=== PATIENT | male | born 1995 | race Caucasian/White ===

== ENCOUNTER 2023-07-22 06:50 | Outpatient (OUT) | payer MEDICAID, SELFPAY ==
[2023-07-22 07:25] LABS: Basophils Absolute Auto 0.1 10^3/uL (0.0-0.1); Basophils Percent Auto 1.3 % (0.2-2.0); Eosinophils Absolute Auto 0.2 10^3/uL (0.0-0.7); Hematocrit 48.6 % (42.0-54.0); Immature Granulocytes Abs Auto 0.01 10^3/uL (0.00-0.03); Immature Granulocytes Pct Auto 0.2 % (0.0-0.5); Lymphocytes Absolute Auto 1.7 10^3/uL (1.2-3.8); Lymphocytes Percent Auto 31.1 % (20.5-60.0); Mean Corpuscular HGB Conc 30.9 g/dL (29.9-35.2); Mean Corpuscular Hemoglobin 25.3 pg (25.9-34.0); Mean Corpuscular Volume 82.1 fL (80.0-94.0); Mean Platelet Volume 10.4 fL (9.5-13.5); Monocytes Absolute Auto 0.6 10^3/uL (0.3-0.8); Monocytes Percent Auto 10.2 % (1.7-12.0); Neutrophils Absolute Auto 2.9 10^3/uL (1.4-6.5); Neutrophils Percent Auto 54.2 % (43.0-75.0); Platelet Count 172 10^3/uL (150-450); Red Blood Count 5.92 10^6/uL (4.70-6.10); Red Cell Distribution Width 13.8 % (11.0-15.0); White Blood Count 5.4 10^3/uL (4.0-11.0)
[2023-07-22 07:52] LABS: Alanine Aminotransferase 32 U/L (16-63); Albumin Level 4.2 g/dL (3.4-5.0); Alkaline Phosphatase 143 U/L (46-116); Anion Gap 1.6; Aspartate Amino Transferase 21 U/L (15-37); BUN Creatinine Ratio 15.1; Bilirubin Total 0.6 mg/dL (0.2-1.0); Calcium 9.3 mg/dL (8.5-10.1); Carbon Dioxide 34.7 mmol/L (21.0-32.0); Chloride 100 mmol/L (98-107); Estimated GFR (African America >60 (>=60); Estimated GFR (Non-African Ame >60 (>=60); Free T3 2.53 pg/mL (2.18-3.98); Globulin 4.2 g/dL; Glucose 87 mg/dL (74-106); Potassium 4.3 mmol/L (3.5-5.1); Sodium 132 mmol/L (136-145); Thyroid Stimulating Hormone 2.915 uIU/mL (0.358-3.740); Total Protein 8.4 g/dL (6.4-8.2)
[2023-07-22 07:54] LABS: Free T4 0.93 ng/dL (0.76-1.46)
== END 2023-07-22 06:51 | disposition home or self-care (01) ==
LOC: LAB 06:50
PROVIDERS: PCP Family Medicine; Visit Provider Family Medicine
DX: Z79.899 Other long term (current) drug therapy (principal)
CPT/HCPCS: 36415; 80053; 84439; 84443; 84481; 85025

== ENCOUNTER 2025-01-11 07:10 | Outpatient (OUT) | payer MEDICAID, SELFPAY ==
--- OUTSIDE RECORDS SUMMARY | 2016-03-25 07:50 | XMS_ITS | Continuity of Care Document ---
Author Organization [facility] Address [address] [place] [address] Phone Care Team Providers Care Chrome Tanner Name Role Phone Zaira María Unavailable Unavailable Allergies, Adverse Reactions, Alerts Substance Reaction Status Criticality No Known Allergies Active No Inform ation Medications Medication Instructions Dosage Effective Dates (start - stop) Status Comments No Drug Therapy Prescribed Procedures Procedure Date Office/outpatient visit,est, mod 2015 Pneuma/vac walk boot pre ots Office/outpatient visit,new, [facility] 2014 Advance Directives Directive Yes / No Effective Date File Name No Information Encounters Encounter Description Practice Location Reason(s) For Visit Diagnoses Date Provider Providers Copied on Encounter Office/outpat ient visit,est, mod [facility], [facility] [address] [place], [place], [facility], tel:[phone] [facility] No Information [address]. [address] [place], [place], [id number] , [place]. tel:[phone] [facility], [facility] [place], [address], [place] tel:[phone] [facility] No Information 6 Zaira María. [address] [place], [place], [id number] , [place]. tel:[phone] Office/outpat ient visit,[place], [facility], [address] [facility] [place], [address], [place] [phone] Ronni Bedoya Wrist Pain (chief complaint) No Information [phone] [place], [place], [id number] , [place]. tel:[phone] Family History Family Member Type Diagnosis Age At Onset No Information Payers Payer name Insurance type Covered libertarian ID Authoriza tion(s) No Information Social History Type Description Quantity Date Captured Comments Sex Male Smoking Status No Information Chief Complaint And Reason For Visit No Information Reason For Referral Reason For Referral No Information History Of Present Illness Encounter Date Complaint History Of Prese nt Illness Wrist Pain Functional Status Date Functional Assessmen t No Information Medications Administered Medication Instructions Dosage Effective Dates (start - stop) Status Comments No Drug Therapy Prescribed Instructions Date Instruction Additional Infor mation No Information Assessments Type Assessment Date No Information Patient Care Teams Name Effective Dates (start - stop) Status Members No Information
--- OUTSIDE RECORDS SUMMARY | 2025-01-11 07:13 | XMS_ITS | Encounter Summary ---
Author Organization [facility] Address [address] [place] [address] Care Team Providers Care Ferry Operator Name Role Phone Rojas Hurtado DO Primary Care Provider [phone] Encounter Details Date Type Department Care Team (Latest Contact Info) Description 03/18/2006 Office Visit Donaldo Johnson MD Social History Tobacco Use Types Packs/Day Years Used Date Smoking Tobacco: Never Assessed Sex and Gender Information Value Date Recorded Sex Assigned at Not on file Legal Sex Male 3:31 PM EST Gender Identity Not on file Sexual Orientation Not on file documented as of this encounter Plan of Treatment Not on file documented as of this encounter Visit Diagnoses Not on filedocumented in this encounter Care Teams Ferry Operator Relationship Specialty Start Date End Date Rojas Hurtado DO [address] [place] [address] PCP - General Family Medicine 01/17/14 documented as of this encounter
--- OUTSIDE RECORDS SUMMARY | 2025-01-11 07:13 | XMS_ITS | Encounter Summary ---
Author Organization [facility] Address [id number] [address] [place] [address] Care Team Providers Care Learning Program Manager Name Role Phone No Pcp, No Pcp Primary Care Provider Unavailabl e Encounter Details Date Type Department Care Team (Late st Contact Info) Description 07/04/2022 Orders Only [facility] [address] [place] [address] External, Scanning Provider Social History Tobacco Use Types Packs/Day Years Used Date Smoking Tobacco: Never Smokeless Tobacco: Never Alcohol Use Standard Drinks/Week Comments Never 0 (1 standard drink = 0.6 oz pur e alcohol) Childcare Answer Date Recorded Childcare Unknown 11/03/2018 Employment Answer Date Recorded Employment Unknown 11/03/2018 Sex and Gender Information Value Date Recorded Sex Assigned at Not on file Legal Sex Male 7:09 PM EDT Gender Identity Not on file Sexual Orientation Not on file COVID-19 Exposure Response Date Recorded In the last month, have you been in contact with someone who was confirmed or suspected to have Coronavirus / COVID-19? No / Unsure 07/03/2022 11:49 AM EST documented as of this encounter Plan of Treatment Upcoming Encounters Date Type Department Care Team (Late st Contact Info) Description 02/23/2025 9:45 AM EDT Office Visit [facility] [address] [place] [address] Leandra Freeman, PADmC [address] [facility] [place] [address] documented as of this encounter Visit Diagnoses Not on filedocumented in this encounter Care Teams Learning Program Manager Relationship Specialty Start Date End Date No Pcp, [place] [address] PCP - General Family Medicine 08/22/22 documented as of this encounter
--- OUTSIDE RECORDS SUMMARY | 2025-01-11 07:13 | XMS_ITS | Encounter Summary ---
Author Organization [facility] Address [address] [place] [address] Care Team Providers Care Cashier Host/Hostess Name Role Phone Rojas Hurtado DO Primary Care Provider Encounter Details Date Type Department Care Team (Late st Contact Info) Description 07/14/2007 Office Visit [facility] [address], [address] [place] [address] Donaldo Johnson MD Social History Tobacco Use [...] on filedocumented in this encounter Care Teams Cashier Host/Hostess Relationship Specialty Start Date End Date Rojas Hurtado DO [address] [place] [address] PCP - General Family Medicine 01/17/14 documented as of this encounter
--- OUTSIDE RECORDS SUMMARY | 2025-01-11 07:13 | XMS_ITS | Clinical Summary ---
Author Organization [facility] Address [address] [place] [address] Care Team Providers Care Clinical Systems Educator Name Role Phone Unavailable Primary Care Provider Unavailabl e Social History Tobacco Use Types Packs/Day Years Used Date Smoking Tobacco: Never Assessed Sex and Gender Information Value Date Recorded Sex Assigned at Not on file Legal Sex Male 9:44 PM EDT Gender Identity Not on file Sexual Orientation Not on file Plan of Treatment Health Maintenance Due Date Last Done Comments Influenza Vaccine (#1) 2025 , 03/01/2020, 03/19/2019, Additional history exists Insurance [place]ICAID [place]
--- OUTSIDE RECORDS SUMMARY | 2025-01-11 07:13 | XMS_ITS | Clinical Summary ---
Author Organization [facility] Address [id number] [address] [place] [address] Care Team Providers Care Pump And Blower Operator Name Role Phone No Pcp, No Pcp Primary Care Provider Unavailabl e Allergies Active Allergy Reactions Criticality Noted Date Comments Codeine 04/02/2013 Medications fluticasone propionate (FLONASE) 50 mcg/actuation nasal spray Administer 1 spray into each nostril in the morning and 1 spray before bedtime. 2 Active levothyroxine (SYNTHROID, LEVOTHROID) 50 MCG tablet Take 1 tablet (50 mcg total) by mouth in the morning. 2 Active loratadine (CLARITIN) 10 mg tablet Take 1 tablet (10 mg total) by mouth nightly. 2 Active montelukast (SINGULAIR) 10 mg tablet Take 1 tablet (10 mg total) by mouth in the morning. 2 Active potassium citrate-citric acid (POLYCITRA) 1,100-334 mg/5 mL solution 2 Active budesonide (PULMICORT) 0.5 mg/2 mL nebulizer solution Inhale 2 mL (0.5 mg total) by nebulization in the morning. Active guaiFENesin (ROBITUSSIN) 100 mg/5 mL syrup Take 10 mL (200 mg total) by mouth as needed in the morning and 10 mL (200 mg total) as needed at noon and 10 mL (200 mg total) as needed in the evening for cough. Active clotrimazole-be tamethasone (LOTRISONE) creamIndication s:Otomycosis Applied to external ear canal once at bedtime every other night. 30 g 3 4 Active clotrimazole (LOTRIMIN) 1 % external solutionIndicat ions:Otomycosis ,Otorrhea of both ears Administer 2 drops in both ears twice daily for 7 days, in combination with Ciprodex 30 mL Active Active Problems Problem Noted Date Diagnosed Date Otorrhea 11/03/2024 Conductive hearing loss, bilateral 08/21/2022 Dysfunction of both eustachian tubes 08/21/2022 Cerumen debris on tympanic membrane of both ears 03/07/2022 Otomycosis 03/07/2022 Resolved Problems Problem Noted Date Diagnosed Date Resolved Date Acute mucoid otitis media of right ear 04/07/2024 08/04/2024 Acute otitis externa of both ears 04/07/2024 08/04/2024 Right otitis media 12/18/2023 Non-recurrent acute serous o titis media of right ear 07/16/2022 01/14/2024 Overview (07/16/2022): Added automatically from request for surgery [id number] Bilateral serous otitis media 04/11/2022 01/14/2024 Encounters Date Type Department Care Team Description 12/01/2024 2:15 PM EDT Office Visit [facility] [facility] [place] [place] [phone] Leandra Freeman PA-C Otomycosis (Primary Dx); Otorrhea of both ears; Dysfunction of both eustachian tubes 12/01/2024 Travel 11/04/2024 Telephone [facility] [address] [place], [place] [address] [place] [address] Leandra Freeman PA-C 11/03/2024 2:15 PM EDT Office Visit [facility] [place] [address] Leandra Freeman PA-C Otomycosis (Primary Dx); Dysfunction of both eustachian tubes; Otorrhea of both ears 11/03/2024 Travel 10/14/2024 Telephone [facility] [address] [facility] [place] [address] Leandra Freeman PA-C from Last 3 Months Family History Medical History Relation Name Comments No Known Problems Father No Known Problems Mother Relation Name Status Comments Father Alive Mother Alive Social History Tobacco Use Types Packs/Day Years Used Date Smoking Tobacco: Never Smokeless Tobacco: Never Tobacco Cessation:Counseling Given: Not Answered Alcohol Use Standard Drinks/Week Comments Never 0 (1 standard drink = 0.6 oz pur e alcohol) Childcare Answer Date Recorded Childcare Unknown 11/03/2018 Employment Answer Date Recorded Employment Unknown 11/03/2018 Hunger Screening Answer Date Recorded Within the past 12 months we worried whether our food would run out before we got money to buy more. Never True 09/26/2022 Within the past 12 months th e food we bought just didn't last and we didn't have money to get more. Never True 09/26/2022 Sex and Gender Information Value Date Recorded Sex Assigned at Not on file Legal Sex Male 7:09 PM EDT Gender Identity Not on file Sexual Orientation Not on file Last Filed Vital Signs Vital Sign Reading Time Taken Comments Blood Pressure 126/79 08/29/2022 1:40 PM EDT Pulse 90 08/29/2022 1:40 PM EDT Temperature 37.1 C (98.8 F) 12/01/2024 1:56 PM EDT Respiratory Rate 15 08/29/2022 1:40 PM EDT Oxygen Saturation 98% 08/29/2022 1:40 PM EDT Inhaled Oxygen Concentration - - Weight 73.9 kg (163 lb) 12/01/2024 1:56 PM EDT Height 162.6 cm (5' 4.02 ) 12/01/2024 1:56 PM ED T Body Mass Index 27.96 12/01/2024 1:56 PM EDT Plan of Treatment Upcoming Encounters Date Type Department Care Team ([facility] Contact Info) Description 02/23/2025 9:45 AM EDT Office Visit [facility] [address] [place] [address] Leandra Freeman PA-C [address] [facility] [address] [place] [address] Health Maintenance Due Date Last Done Comments Depression Screening 2008 Adult BMI Follow Up Plan 2014 DTaP,Tdap and Td Vaccines (7 - Td or Tdap) 07/16/2022 07/16/2012, 01/13/2003, 07/16/2002, Additional history exists Influenza Vaccine 01/24/2025 03/11/2024, , 03/13/2022, Additional history exists Adult BMI Screening 12/01/2025 12/01/2024 Tobacco Screening 12/01/2025 12/01/2024 COVID-19 Vaccine Completed 03/11/2024, , 03/13/2022, Additional history exists Medical Devices Implanted Type Area Gardener Device Identifier Shelf Expiration Date Model / Serial / Lot Plain Straight Shank Ventilation Tube, Fluoroplastic, White Implanted:Qty: 2 on 08/29/2022 by Jan Baer MD PhD at [facility] Other Implant Bilatera l: Ear [employer] 03/20/2025 [id number] / NA / [id number] [place] Care Teams Pump And Blower Operator Relationship Specialty Start Date End Date No Pcp, [place] [address] PCP - General Family Medicine 08/22/22
--- OUTSIDE RECORDS SUMMARY | 2025-01-11 07:13 | XMS_ITS | Encounter Summary ---
Author Organization [facility] Address [address] [place] [address] Care Team Providers Care Job Coaching Name Role Phone Rojas Hurtado DO Primary Care Provider Encounter Details Date Type Department Care Team (Late st Contact Info) Description 11/25/2005 Office Visit Endocrinology Clinic [facility] [address] [address] José Miguel Campos MD Endocrinology & Metabolism [address] [place] [address] Social History Tobacco Use Types Packs/Day Years [...] on filedocumented in this encounter Care Teams Job Coaching Relationship Specialty Start Date End Date Rojas Hurtado DO [address] [place] [address] PCP - General Family Medicine 01/17/14 documented as of this encounter
--- OUTSIDE RECORDS SUMMARY | 2025-01-11 07:13 | XMS_ITS | Encounter Summary ---
Author Organization [facility] Address [address] [place] [address] Care Team Providers Care Facility Attendant Name Role Phone Rojas Hurtado Primary Care Provider Encounter Details Date Type Department Care Team (Late st Contact Info) Description 12/16/2006 Office Visit [facility]alsy [facility] [address] [place] [address] Jessee Cosby MD [address] [place] [address] Social History Tobacco Use Types Packs/Day Years Used Date Smoking Tobacco: Never Assessed Sex and Gender Information Value Date Recorded Sex Assigned at Not on file Legal Sex Male 3:31 PM EST Gender Identity Not on file Sexual Orientation Not on file documented as of this encounter Progress Notes * Jessee Cosby MD - 12/17/2006 5:59 AM EDT [facility] MEDICAL REPORT NAME: [facility] UNIT NO: [id number] [facility] 12/16/2006 CHIEF COMPLAINT: The patient is being evaluated for nonpainful flat feet with valgus deformity. HISTORY OF PRESENT ILLNESS: The patient is a 11-year-old male with multiple medical problems including epilepsy, autism, hypoplastic corpus callosum, craniostenosis, and hyperthyroidism. The patient is referred here by the neurology clinic for evaluation of bilateral flat feet with valgus deformity. Mom says the patient does not complain of pain and ambulates without assistance. The patient does wear inserts to correct his valgus deformity, which were given to him initially by a previous physician. However, the patient does not wear these at all times and only wears them in his tennis shoes. Mom states that the patient does not complain of pain on ambulation and has demonstrated stable coordination. PHYSICAL EXAMINATION: The patient is a 11-year-old male with multiple craniofacial dysmorphic features that is alert and responds appropriately to questioning. The patient follows directions without difficulty. He was able to climb down from the examining table to the floor to demonstrate his walking ability. His gait, he does utilize a broad base gait with a flat foot valgus deformity of bilateral feet. The patient does have soft, supple ankles and can get past neutral and dorsiflexion. The patient does have full range of motion of the hips, knees, and ankles. X-RAYS: No x-rays were obtained at this time. IMPRESSION: Bilateral flat feet valgus deformity, nonpainful. PLAN: After discussion with mother, it was determined that the patient would probably benefit from foot inserts to correct the valgus deformity. Both literature and sizing for shoe insert was performed today and mother will follow up with the company and order a set of inserts for the patient's tennis shoes. At this time, we will follow up with the patient in 1 year to recheck his status; however, if the mother feels as though she needs to follow up at a sooner date, she can call and make an appointment. Staff Physician: Robby Almeida MD The patient was seen and evaluated with the resident. I agree with the above findings, diagnosis, plan of treatment and have reviewed the medication reconcilliation form.. Attending Physician: Jessee Cosby MD d/12/16/2006 15:06:46/[id number] t/12/17/2006 00:29:08/MedQ documented in this encounter Plan of Treatment Not on file documented as of this encounter Visit Diagnoses Not on filedocumented in this encounter Care Teams Facility Attendant Relationship Specialty Start Date End Date Rojas Hurtado DO [address] [place] [address] PCP - General Family Medicine 01/17/14 documented as of this encounter
--- OUTSIDE RECORDS SUMMARY | 2025-01-11 07:13 | XMS_ITS | Encounter Summary ---
Author Organization [facility] Address [address] [place] [address] Care Team Providers Care Military Science Instructor Name Role Phone Rojas Hurtado DO Primary Care Provider Encounter Details Date Type Department Care Team (Late st Contact Info) Description 03/28/2006 Office Visit Neurology Clinic [address] [place] [address] Bar Pelaez MD [address] [place] [address] Social History Tobacco Use Types Packs/Day Years [...] on filedocumented in this encounter Care Teams Military Science Instructor Relationship Specialty Start Date End Date Rojas Hurtado DO [address] [place] [address] PCP - General Family Medicine 01/17/14 documented as of this encounter
--- OUTSIDE RECORDS SUMMARY | 2025-01-11 07:13 | XMS_ITS | Clinical Summary ---
Author Organization [facility] Address [address] [place] [address] Care Team Providers Care Prom Burn Off Operator Name Role Phone Rojas Hurtado DO Primary Care Provider Allergies Active Allergy Reactions Criticality Noted Date Comments Codeine Rash,Respiratory Distress 07/31/2005 Environmental Sneezing 03/08/2014 Medications loraTADINE (CLARITIN) 10 mg oral tablet 1 tablet by mouth every day as needed 8 Active DIASTAT RECTAL Insert 20mg rectally as needed as directed 8 Active potassium citrate-citric acid (CYTRA-K) 1,100-334 mg/5 mL oral liquid take 10 mL by mouth 3 times daily. 1 month supply 11 8 Active levothyroxine (SYNTHROID) 50 mcg oral tablet 1 tablet once daily. 1 tablet by mouth every day 30 tablets 11 months 8 Active montelukast (SINGULAIR) 10 mg oral tablet take 10 mg by mouth once daily. Active fluticasone (FLONASE) nasal spray place 1 spray(s) in each nostril twice daily. Active Active Problems Problem Noted Date Diagnosed Date Nephrocalcinosis 08/06/2006 Social History Tobacco Use Types Packs/Day Years Used Date Smoking Tobacco: Never Smokeless Tobacco: Never Sex and Gender Information Value Date Recorded Sex Assigned at Not on file Legal Sex Male 3:31 PM EST Gender Identity Not on file Sexual Orientation Not on file Last Filed Vital Signs Vital Sign Reading Time Taken Comments Blood Pressure 109/65 06/29/2007 1:30 PM EST Pulse 111 06/29/2007 1:30 PM EST Temperature - - Respiratory Rate - - Oxygen Saturation - - Inhaled Oxygen Concentration - - Weight 56.4 kg (124 lb 5.4 oz) 03/08/2014 12:00 AM EDT Height 159.8 cm (5' 2.91 ) 03/08/2014 12:00 AM E DT Body Mass Index 22.09 03/08/2014 12:00 AM EDT Plan of Treatment Health Maintenance Due Date Last Done Comments MMR Vaccine (1 of 1 - Standa rd series) 1997 DTaP/Tdap/Td Vaccine (1 - Tdap) 12/03/2003 Varicella Vaccine (1 of 2 - 13+ 2-dose series) 2009 Hepatitis B Vaccine (1 of 3 - 19+ 3-dose series) 12/03/2015 HPV Vaccine (1 - 3-dose SCDM series) 12/03/2023 COVID-19 Vaccine (2023-2 5 season) 2024 Influenza Vaccine (#1) 2025 HIB Vaccine Aged Out No longer eligi ble based on patient's age to complete this topic Hepatitis A Vaccine Aged Out No longe r eligible based on patient's age to complete this topic IPV Vaccine Aged Out No longer eligi ble based on patient's age to complete this topic Meningococcal ACWY Vaccine Aged Out N o longer eligible based on patient's age to complete this topic Meningococcal B Vaccine Aged Out No l onger eligible based on patient's age to complete this topic Pneumococcal Vaccine Aged Out No long er eligible based on patient's age to complete this topic RSV, Nirsevimab Immunization Aged Out No longer eligible based on patient's age to complete this topic Rotavirus Vaccine Aged Out No longer eligible based on patient's age to complete this topic Insurance [place] Care Teams Prom Burn Off Operator Relationship Specialty Start Date End Date Rojas Hurtado DO [address] [place] [id number] PCP - General Family Medicine 01/17/14
--- OUTSIDE RECORDS SUMMARY | 2025-01-11 07:13 | XMS_ITS | Encounter Summary ---
Author Organization [facility] Address [address] [place] [address] Care Team Providers Care Cover Inspector Name Role Phone Rojas Hurtado DO Primary Care Provider [phone] Reason for Referral * Consultation (Routine) - Closed Specialty Diagnoses / Procedures Referred By Freda t Referred To Contact Neurosurgery Diagnoses Craniostenosis Rojas Hurtado DO [address] [place] [address] Phone: tel: fax: [facility] [address], [address] [place] [address] Phone: tel: Referral ID Status Reason Start Date Expiration Date V isits Requested Visits Authorized [id number] Closed Specialty Services Required 01/12/2014 01/12/2015 7 7 Encounter Details Date Type Department Care Team (Late st Contact Info) Description 01/12/2014 Orders Only Central Scheduling Rojas Hurtado DO [address] [place] [address] Social History Tobacco Use Types Packs/Day Years Used Date Smoking Tobacco: Never Assessed Sex and Gender Information Value Date Recorded Sex Assigned at Not on file Legal Sex Male 3:31 PM EST Gender Identity Not on file Sexual Orientation Not on file documented as of this encounter Plan of Treatment Scheduled Referrals Name Type Priority Associated Diagnoses Order Schedule Referral to Neurosurgery Outpatient Referral Routine Craniostenosis Ordered: 01/12/2014 documented as of this encounter Visit Diagnoses Diagnosis 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
--- OUTSIDE RECORDS SUMMARY | 2025-01-11 07:13 | XMS_ITS | Encounter Summary ---
Author Organization [facility] eZWay [facility] tem Address [employer] [facility] [employer]-[id number] [address] [place] [address] Care Team Providers Care Sheet Finisher Name Role Phone No Pcp, No Pcp Primary Care Provider Unavailabl e Encounter Details Date Type Department Care Team ([facility] st Contact Info) Description 04/05/2024 Telephone [facility] - ENT [address] [facility] [place] [id number] Leandra Freeman, PA-C [address] [facility] [address] [place] [address] Social History Tobacco Use Types Packs/Day Years [...] on file documented as of this encounter Miscellaneous Notes * Telephone Encounter - Yaritza Rico - 04/05/2024 3:00 PM EST Michelle from [facility] called and said patient has milky white discharge from his ears. It is mostly his right ear and that ear is causing him pain. Patient is scheduled for 04/13 at 10:45am. Should patient be seen sooner. If so they can bring him in on Friday or afternoon this week. Please advise. Michelle at [facility] [phone] * Telephone Encounter - SHARLA Hutchinson - 04/05/2024 3:00 PM EST Should patient be seen sooner? Looks like you have a held slot at 2:15pm on Friday, Friday and . * Telephone Encounter - LISETTE Reddy - 04/05/2024 3:00 PM EST Yes, he should be scheduled this week in a held slot if Leandra has them available! * Telephone Encounter - SHARLA Hutchinson - 04/05/2024 3:00 PM EST Left a message for the patients caregiver asking to call the office back so we can schedule the patient for an appointment with Leandra this week in one of her held slots. * Telephone Encounter - Judy Claire - 04/05/2024 3:00 PM EST Patient is scheduled with Leandra 04/07 at 2:15pm. documented in this encounter Plan of Treatment Upcoming Encounters Date Type Department Care Team (Late st Contact Info) Description 02/23/2025 9:45 AM EDT Office Visit [facility] [address] [place] [address] Leandra Freeman, PADmC [address] [facility] [address] [place] [address] documented as of this encounter Visit Diagnoses Not on filedocumented in this encounter Care Teams Sheet Finisher Relationship Specialty Start Date End Date No Pcp, [place] [address] PCP - General Family Medicine 08/22/22 documented as of this encounter
--- OUTSIDE RECORDS SUMMARY | 2025-01-11 07:13 | XMS_ITS | Encounter Summary ---
Author Organization [facility] Address [address] [place] [address] Care Team Providers Care Signs And Displays Salesperson Name Role Phone Rojas Hurtado DO Primary Care Provider [phone] Encounter Details Date Type Department Care Team (Late st Contact Info) Description 01/12/2008 Office Visit [facility] [address], [address] [place] [address] Donaldo Johnson MD Social History Tobacco Use [...] on filedocumented in this encounter Care Teams Signs And Displays Salesperson Relationship Specialty Start Date End Date Rojas Hurtado DO [address] [place] [id number] PCP - General Family Medicine 01/17/14 documented as of this encounter
--- OUTSIDE RECORDS SUMMARY | 2025-01-11 07:13 | XMS_ITS | Encounter Summary ---
Author Organization [facility] Address [address] [place] [address] Care Team Providers Care Roll Panner Name Role Phone Rojas Hurtado DO Primary Care Provider Encounter Details Date Type Department Care Team (Late st Contact Info) Description 04/28/2006 Office Visit [facility] [place] [address] [place] [address] Benjamin Chao DDS [address] [place] [address] [id number] [place] [phone] Social History Tobacco Use Types Packs/Day Years Used Date Smoking Tobacco: Never Assessed Sex and Gender Information Value Date Recorded Sex Assigned at Not on file Legal Sex Male 3:31 PM EST Gender Identity Not on file Sexual Orientation Not on file documented as of this encounter Miscellaneous Notes * Operative Report - Benjamin Chao DDS - 05/03/2006 3:54 AM EST [facility] OPERATIVE REPORT PATIENT NAME: GLEN SUGGS MR#: [id number] DATE OF SURGERY: 04/29/2006 SERVICE: OPT SURGEON: MICHAEL CHAO DDS ASSISTANTS: PREOPERATIVE DIAGNOSIS: Dental caries. POSTOPERATIVE DIAGNOSIS: Dental caries. PROCEDURE: Operative dentistry. INDICATIONS FOR PROCEDURE: The patient is a 10-year-old male with a medical history of craniosynostosis. Previous attempts of dental treatment have been unsuccessful due to cooperation and scope of treatment. [facility] [address], on April 2006, medical history was reviewed and informed consent obtained from the parents. DESCRIPTION OF PROCEDURE: Following anesthetic induction a moist pharyngeal throat pack was placed, a rubber cup prophy was accomplished, and a treatment plan was generated. Four periapical x-rays were taken, 1.8 ml 2% lidocaine with 1:100,000 epinephrine was administered as regional anesthesia. The following teeth were treated under rubber dam isolation: Tooth H - facial glass ionomer. Tooth N - extraction. Tooth L - extraction. Tooth R - extraction. Tooth S - extraction. Also there were four quadrants of subgingival scaling and re-planing that were accomplished. Following treatment 1.23% APF was applied for two minutes, throat pack was removed, and the mouth was debrided. The patient was extubated without complications in the [facility] and transferred to the Dental PACU where upon obtainment of discharge criteria he will be released to the care of his parents with a follow up in six months. Michael Chao DDS d/05/02/2006 09:15:36/ST/[id number] t/05/03/2006 03:39:55/MedQ documented in this encounter Plan of Treatment Not on file documented as of this encounter Visit Diagnoses Not on filedocumented in this encounter Care Teams Roll Panner Relationship Specialty Start Date End Date Rojas Hurtado DO [address] [place] [address] PCP - General Family Medicine 01/17/14 documented as of this encounter
--- OUTSIDE RECORDS SUMMARY | 2025-01-11 07:13 | XMS_ITS | Encounter Summary ---
Author Organization [facility] Address [address] [place] [address] Care Team Providers Care Field Marketing Associate Name Role Phone Rojas Hurtado DO Primary Care Provider Encounter Details Date Type Department Care Team (Late st Contact Info) Description 03/28/2006 Office Visit LAB OUTPATIENT LAB MAIN [place] [phone] José Miguel Campos MD Endocrinology & Metabolism [address] [place] [address] Social History Tobacco Use Types Packs/Day Years Used Date Smoking Tobacco: Never Assessed Sex and Gender Information Value Date Recorded Sex Assigned at Not on file Legal Sex Male 3:31 PM EST Gender Identity Not on file Sexual Orientation Not on file documented as of this encounter Plan of Treatment Not on file documented as of this encounter Procedures Procedure Name Priority Date/Time Associated Diagnosis Comments TSH Routine 03/28/2006 5:25 PM EST FREE T4 Routine 03/28/2006 5:25 PM EST documented in this encounter Results * TSH (03/28/2006 5:25 PM EST) TSH 3.300 0.5 - 4.7 uIU/mL [facility] Comment: This is a 3rd Generation TSH assay which is now standard procedure at [facility]. 03/28/2006 5:25 PM EST 03/28/2006 5:45 PM EST José Miguel Campos MD METABOLIC/ENDOCRINE ORDERAB LES Final Result [facility] [address] [place] [address], [place] [phone] * FREE T4 (03/28/2006 5:25 PM EST) [facility] FREE T4 1.4 0.7 - 2.1 ng/dL [facility] 03/28/2006 5:25 PM EST 03/28/2006 5:45 PM EST José Miguel Campos MD METABOLIC/ENDOCRINE ORDERAB LES Final Result Performing Organization Address City/[facility] Co de Phone Number [facility] [address] [place] [address], [place] [phone] documented in this encounter Visit Diagnoses Not on filedocumented in this encounter Care Teams Field Marketing Associate Relationship Specialty Start Date End Date Rojas Hurtado DO [address] [place] [address] PCP - General Family Medicine 01/17/14 documented as of this encounter
--- OUTSIDE RECORDS SUMMARY | 2025-01-11 07:13 | XMS_ITS | Encounter Summary ---
Author Organization [facility] Address [address] [place] [address] Care Team Providers Care Hris Coordinator Name Role Phone HurtadoRojas barraza Antoni FARIA Primary Care Provider Encounter Details Date Type Department Care Team (Late st Contact Info) Description 02/28/2009 Orders Only Central Scheduling Donaldo Johnson MD Social History Tobacco Use Types Packs/Day Years Used Date Smoking Tobacco: Never Assessed Sex and Gender Information Value Date Recorded Sex Assigned at Not on file Legal Sex Male 3:31 PM EST Gender Identity Not on file Sexual Orientation Not on file documented as of this encounter Plan of Treatment Not on file documented as of this encounter Results * BRAIN NO CONTRAST-CT (05/09/2009 10:05 AM EST) Anatomical Region Laterality Modality Head N/A Computed Tomogra phy 05/09/2009 10:0 5 AM EST Impressions 05/09/2009 10:15 AM EST rac/Dictated: 05/09/[address] BRAIN - 05/09/09 CLINICAL HISTORY: Skull deformity. TECHNIQUE: Noncontrast CT scan of the brain is obtained compared to the last study from December 06, 2008. FINDINGS: Bone windowed images once again demonstrate evidence of fairly extensive cranioplasty involving the frontal and parietal bones but also the occipital bones. There are small areas of bone dehiscence of the frontal and occipital bones related to the prior surgery that appear to be stable. Perhaps the lateral computer meteorologist images best overall demonstrate the appearance of the patient's calvarium. Images of the brain again demonstrate some prominence of the frontal horns bilaterally. Possibly the septum pellucidum is absent. 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 I do not see any transependymal edema or hemorrhage. There is no midline shift or sub or epidural collections. There is some movement artifact on the images. Compared to the prior examination, this appears to be stable. IMPRESSION: No significant change. 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
--- OUTSIDE RECORDS SUMMARY | 2025-01-11 07:13 | XMS_ITS | Encounter Summary ---
Author Organization [facility] Address [address] [place] [address] Care Team Providers Care Tool And Die Repair Name Role Phone Rojas Hurtado DO Primary Care Provider Encounter Details Date Type Department Care Team (Late st Contact Info) Description [facility]/01/2006 [facility] [address] [place] [address] Donaldo Johnson MD Social History Tobacco Use Types Packs/Day Years Used Date Smoking Tobacco: Never Assessed Sex and Gender Information Value Date Recorded Sex Assigned at Not on file Legal Sex Male 3:31 PM EST Gender Identity Not on file Sexual Orientation Not on file documented as of this encounter Plan of Treatment Pending Results Name Type Priority Associated Diagnoses Date /Time BRAIN NO CONTRAST-CT Imaging Routine 02/24 10:49 AM EDT documented as of this encounter Visit Diagnoses Not on filedocumented in this encounter Care Teams Tool And Die Repair Relationship Specialty Start Date End Date Rojas Hurtado DO [address] [place] [address] PCP - General Family Medicine 01/17/14 documented as of this encounter
--- OUTSIDE RECORDS SUMMARY | 2025-01-11 07:14 | XMS_ITS | CCD ---
Author Organization [facility] ion Partnership [facility] Care Team Providers Care Internet Sales Representative Name Role Phone Unavailable Primary Care Provider Unavailabl e CHOUDHARY, DR CLINT Corrales Consulting Unavailable CHOUDHARY, DR CLINT Corrales Attending Unavailable CHOUDHARY, DR CLINT Corrales Admitting Unavailable CHOUDHARY, DR CLINT Corrales Primary Care Unavailable CLINT CHOUDHARY Primary Care Physician CLINT CHOUDHARY Attending Unavailable CHOUDHARYCLINT Admitting Unavailable Unavailable Primary Care Provider Unavailabl e PROVIDER, UNKNOWN Admitting Unavailable PROVIDER, UNKNOWN Attending Unavailable PROVIDER, UNKNOWN Admitting Unavailable PROVIDER, UNKNOWN Attending Unavailable AL-MASHNI, AYAN Attending Unavailable AL-MASHNI, AYAN Admitting Unavailable PROVIDER, UNKNOWN Admitting Unavailable AL-MASHNI, AYAN Attending Unavailable Unavailable Primary Care Provider Unavailabl e No Pcp, No Pcp Primary Care Provider Unavailabl e No Pcp, No Pcp Primary Care Provider Unavailabl e PETE, CRISTINO D Attending Unavailable NO PCP, NO PCP Primary Care Unavailable PETE, CRISTINO D Attending Unavailable NO PCP, NO PCP Primary Care Unavailable PETE, CRISTINO D Attending Unavailable NO PCP, NO PCP Primary Care Unavailable NO PCP, NO PCP Primary Care Unavailable PETE, CRISTINO D Attending Unavailable NO PCP, NO PCP Primary Care Unavailable PETE, CRISTINO D Attending Unavailable NO PCP, NO PCP Primary Care Unavailable PETE, CRISTINO D Attending Unavailable NO PCP, NO PCP Primary Care Unavailable PETE, CRISTINO D Attending Unavailable NO PCP, NO PCP Primary Care Unavailable Unavailable Primary Care Provider Unavailabl e Allergies Allergy Classification Reported Allergen(s) Allergy Type Date of Onset Reaction(s) Facility (20 sources) Codeine; Translations: [codeine] Drug Allergy 3 [facility] (12 sources) Seasonal Ic; Translations: [SEASONAL IC] Propensity to adverse reactions to drug 7 [facility] (1 source) Codeine Drug Allergy [facility] Repository Medications Current Medications Medication Drug Class(es) Dates Sig (Normalized) Sig (Original) acetaminophen 325 mg / oxyCODONE hydrochloride 5 mg oral tablet (1 source) Opioid Agonist Start: 12-29-2023 2 Tablet, Oral, PRN, 1 dose, Starting on 12/29/23 at 0714, Until Discontinued, Moderate Pain (pain score 4,5,6), PACU Now albuterol 0.83 mg/ml inhalation solution (11 sources) beta2-Adrenergic Agonist albuterol (PROVENTIL) (2.5 mg/3 mL) nebulizer solution 2.5 mg via nebulizer every 4 hours as needed for Wheezing. Active amoxicillin 875 mg / clavulanate 125 mg oral tablet (1 source) Penicillin-class Antibacterial Start: 04-07-2024 End: 04-17-2024 take 1 tablet by mouth once amoxicillin-pot clavulanate (AUGMENTIN) 875-125 mg per tablet Indications: Acute mucoid otitis media of right ear Take 1 tablet by mouth every 12 (twelve) hours for 10 days. 20 tablet 04/07/2024 04/17/2024 Active Apo-Fluticasone Propionate 0.05 mg/inh nasal spray (1 source) Start: 09-18-2011 Apo-Fluticasone Propionate 0.05 mg/inh nasal spray Refill(s) 0 Start Date: 09/18/11 Status: Ordered betamethasone 0.5 mg/ml / clotrimazole 10 mg/ml topical cream (10 sources) Azole Antifungal, Corticosteroid Start: 01-14-2024 clotrimazole-beta methasone (LOTRISONE) cream Indications: Otomycosis Applied to external ear canal once at bedtime every other night. 30 g 3 01/14/2024 Active Start: 09-26-2022 End: 01-14-2024 clotrimazole-betamethasone ( LOTRISONE) cream Indications: Otomycosis Apply 1 Application topically in the morning and 1 Application before bedtime. 30 g 3 09/26/2022 01/14/2024 Discontinued budesonide 0.25 mg/ml inhalation suspension (10 sources) Corticosteroid take 2 mL by inhalat ion twice daily budesonide 0.5 MG/2ML nebulizer suspension Inhale 2 mL 2 times daily. Active take 2 mL by inhalation in the m orning budesonide (PULMICORT) 0.5 mg/2 mL nebulizer solution Inhale 2 mL (0.5 mg total) by nebulization in the morning. Active take 2 mL by inhalation once armin ly budesonide (PULMICORT) 0.5 mg/2 mL nebulizer solution Inhale 2 mL (0.5 mg total) by nebulization once daily. Active cefuroxime 500 mg oral tablet (1 source) Cephalosporin Antibacterial Start: 12-18-2023 End: 12-28-2023 take 1 tablet by mouth in the morning, then take 1 tablet by mouth at bedtime ceFUROxime (CEFTIN) 500 mg tablet Indications: Acute suppurative otitis media of right ear without spontaneous rupture of tympanic membrane, recurrence not specified Take 1 tablet (500 mg total) by mouth in the morning and 1 tablet (500 mg total) before bedtime. Do all this for 10 days. 20 tablet 12/18/2023 12/28/2023 Active ciprofloxacin 3 mg/ml / dexamethasone 1 mg/ml otic suspension (4 sources) Corticosteroid, Quinolone Antimicrobial Start: 11-03-2024 End: 11-10-2024 ciprofloxacin-dex AMETHasone (CIPRODEX) otic suspension Indications: Otomycosis , Otorrhea of both ears Administer 2 drops in both ears twice daily for 7 days, in combination with Lotrimin 7.5 mL 11/03/2024 11/10/2024 Active Start: 04-07-2024 End: 04-14-2024 ciprofloxacin-dexAMETHasone (CIPRODEX) otic suspension Indications: Acute mucoid otitis media of right ear Administer 4 drops into both ears in the morning and 4 drops before bedtime. Do all this for 7 days. 7.5 mL 04/07/2024 04/14/2024 Active Start: 12-18-2023 End: 12-23-2023 ciprofloxacin-dexAMETHasone (CIPRODEX) otic suspension Indications: Acute suppurative otitis media of right ear without spontaneous rupture of tympanic membrane, recurrence not specified Administer 4 drops into both ears in the morning and 4 drops before bedtime. Do all this for 5 days. 7.5 mL 12/18/2023 12/23/2023 Active citric acid 66.8 mg/ml / potassium citrate 220 mg/ml oral solution (11 sources) Calculi Dissolution Agent, Anti-coagulant Start: 11-24-2024 citric acid-potass ium citrate 1100-334 MG/5ML Solution GIVE 10ML BY MOUTH TWICE A DAY DILUTE IN 1 GLASS OF WATER/LIQUID 11/24/2024 Active Start: 02-26-2022 potassium citr ate-citric acid (POLYCITRA) 1,100-334 mg/5 mL solution 02/26/2022 Active Start: 02-26-2022 potassium citr ate-citric acid (POLYCITRA) 1,100-334 mg/5 mL solution GIVE 10ML BY MOUTH TWICE A DAY DILUTE IN 1 GLASS OF WATERLIQUID 02/26/2022 Active Start: 09-18-2011 Cytra-K Oral, TID, Refill(s) 0 Start Date: 09/18/11 Status: Ordered clotrimazole 10 mg/ml topical solution (3 sources) Azole Antifungal Start: 11-03-2024 clotrimazole (LOTRIMIN) 1 % external solution Indications: Otomycosis , Otorrhea of both ears Administer 2 drops in both ears twice daily for 7 days, in combination with Ciprodex 30 mL 11/03/2024 Active desonide 0.5 mg/ml topical cream (1 source) Corticosteroid Start: 09-18-2011 desonide Top 0 .05% Crm 1 sena, Topical, TID, gram, Refill(s) 0 Start Date: 09/18/11 Status: Ordered 2 ml fentaNYL 0.05 mg/ml injection (2 sources) Opioid Agonist Start: 12-29-2023 12.5 mcg, Intr avenous Push, EVERY 5 MIN PRN, 5 doses, Starting on Fri12/29/23 at 0714, Until Discontinued, Moderate Pain (pain score 4,5,6), PACU Now Start: 12-29-2023 25 mcg, Intrav enous Push, EVERY 5 MIN PRN, 5 doses, Starting on Fri12/29/23 at 0714, Until Discontinued, Severe Pain (pain score 7,8,9,10), PACU Now fluocinolone acetonide 0.1 mg/ml topical oil (1 source) Corticosteroid Start: 06-22-2024 Fluocinolone A cetonide Scalp 0.01 % Oil APPLY TOPICALLY TO AFFECTED AREAS ON SCALP FRI-FRI, OFF ON THE WEEKENDS, THEN REPEAT DERMA-SMOOTHE/FS 06/22/2024 Active fluticasone propionate 0.05 mg/actuat metered dose nasal spray (20 sources) Corticosteroid Start: 11-08-2024 take 1 spray(s) nasal route twice daily fluticasone 50 MCG/ACT Suspension nasal spray INSTILL 1 SPRAY INTO EACH NOSTRIL TWICE A DAY FLONASE 11/08/2024 Active Start: 03-05-2022 take 1 spray(s) nasa l route in the morning fluticasone propionate (FLONASE) 50 mcg/actuation nasal spray Administer 1 spray into each nostril in the morning and 1 spray before bedtime. 03/05/2022 Active FLUTICASONE PROP IONATE HFA INHALATION Inhale by mouth. Active FLUTICASONE PROP IONATE HFA INHALATION Inhale by mouth. 0 Active guaiFENesin 20 mg/ml oral solution (10 sources) take 200 mg by mouth every four hours as needed guaiFENesin (QC Tussin Expectorant Adult) 100 MG/5ML Liquid Take 10 mL by mouth every 4 hours as needed for Cold Symptoms. Active guaiFENesin (DAVINA ITUSSIN) 100 mg/5 mL syrup Take 10 mL (200 mg total) by mouth as needed in the morning and 10 mL (200 mg total) as needed at noon and 10 mL (200 mg total) as needed in the evening for cough. Active ketoconazole 20 mg/ml medicated shampoo (1 source) Azole Antifungal Start: 08-24-2024 Ketoconazole 2 % Shampoo shampoo LATHER TO SCALP AND FACE 2-3 TIMES PER WEEK, ALLOW TO SIT FOR 3-5 MINUTES THEN RINSE. NIZORAL 08/24/2024 Active levothyroxine sodium 0.05 mg oral tablet (20 sources) l-Thyroxine Start: 03-06-2022 Levothyroxine 50 MCG tablet 11/30/2024 Active Start: 09-18-2011 levothyroxine Daily, Refills(s) 0 Start Date: 09/18/11 Status: Ordered loratadine 10 mg oral tablet (20 sources) Start: 03-06-2022 take 1 tablet by mouth at bedtime Loratadine 10 MG tablet TAKE ONE TABLET BY MOUTH AT BEDTIME CLARITIN 11/30/2024 Active mineral oil 999 mg/ml oral solution (1 source) Start: 08-05-2024 mineral oil Oi l APPLY 2 DROPS ONCE WEEKLY TO BILAT EARS. LAY W/ EAR UP 10-15 MIN TOLERATED, ALLOW TO DRAIN OUT. DON'T FLUSH EARS OR USE QTIPS/OTHER OBJE 08/05/2024 Active montelukast 10 mg oral tablet (20 sources) Leukotriene Receptor Antagonist Start: 03-06-2022 take 1 tablet by mouth once daily Montelukast 10 MG tablet TAKE ONE TABLET BY MOUTH ONCE DAILY SINGULAIR 11/30/2024 Active Start: 09-18-2011 Singulair qPM, Refills(s) 0 Start Date: 09/18/11 Status: Ordered potassium citrate 15 meq extended release oral tablet (11 sources) take 1 tablet by lesa th three times daily Potassium Citrate (UROCIT-K 15) 15 MEQ (1620 MG) TBCR Take 1 Tab by mouth 3 times daily. Active Completed/Discontinued Medications Medication Drug Class(es) Dates Sig (Normalized) Sig (Original) acetaminophen 500 mg oral tablet (2 sources) Start: 12-29-2023 1,000 mg, Oral, PACU ONCE PRN, 1 dose, Starting on Fri12/29/23 at 0714, Until Discontinued, Mild Pain (pain score 1,2,3), PACU Now take 1 tablet by lesa th every four hours Acetaminophen 325 MG tablet Take 1 table t by mouth every 4 hours. Active 2 ml amisulpride 2.5 mg/ml injection (1 source) Start: 12-29-2023 take 1 dose intravenously once 10 mg, Intravenous Push, PACU ONCE PRN, 1 dose, Starting on Fri12/29/23 at 0714, Until Discontinued, nausea, PACU Now 1 ml naloxone hydrochloride 0.4 mg/ml injection (1 source) Opioid Antagonist Start: 12-29-2023 0.4 mg, Intravenous Push, PRN, Starting on Fri12/29/23 at 0714, Until Discontinued, Respiratory Rate Less Than 8 for adults and less than 12 for Peds or for suspected overdose, PACU Now 20 ml sodium chloride 9 mg/ml injection (1 source) Start: 12-29-2023 3 mL, Intravenous Push, PRN, Starting on Fri12/29/23 at 0714, Until Discontinued, For medication administration and blood draw, PACU Now Problems Active Problems Problem Classification Problem Date Documented Da te Episodic/Chronic Allergic reactions (1 source) Eczema; Translations: [Dermatitis, unspecified] Onset: 12-06-2024 12-06-2024 Episodic Asthma (1 source) Asthma; Translations: [Unspecified asthma, uncomplicated] Onset: 12-06-2024 12-06-2024 Chronic Blindness and vision defects (2 sources) Hypermetropia; Translations: [Hypermetropia, unspecified eye] Onset: 12-06-2024 12-06-2024 Episodic Calculus of urinary tract (1 source) Kidney stone; Translations: [Calculus of kidney] Onset: 12-06-2024 12-06-2024 Episodic Developmental disorders (1 source) Severe intellectual disability; Translations: [Severe intellectual disabilities] Onset: 12-06-2024 12-06-2024 Chronic Disorders of teeth and jaw (20 sources) Dental caries; Translations: [Dental caries, unspecified] Onset: 02-03-2017 Resolved: 12-29-2023 05-17-2019 Episodic Disorders usually diagnosed in infancy, childhood, or adolescence (2 sources) Pervasive developmental disorder, unspecified; Translations: [Autism spectrum disorder] Onset: 03-29-2022 12-06-2024 Chronic Epilepsy; convulsions (2 sources) Epilepsy, unspecified, not intractable, without status epilepticus; Translations: [Seizure disorder] Onset: 03-29-2022 12-06-2024 Chronic Mycoses (14 sources) Otomycosis; Translations: [Superficial mycosis, unspecified] Onset: 03-07-2022 03-07-2022 Episodic Other aftercare (1 source) Other alf (current) drug therapy; Translations: [OTH ASSEMBLY DETAILER CURRENT DRUG THERAPY] Onset: 03-29-2022 Episodic Other congenital anomalies (1 source) Congenital anomaly of head; 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] Onset: 12-06-2024 12-06-2024 Chronic Other ear and sense organ disorders (9 sources) Conductive hearing loss, bilateral; Translations: [Conductive hearing loss, bilateral] Onset: 08-21-2022 08-21-2022 Chronic Other ear and sense organ disorders (1 source) Otitis externa in other diseases classified elsewhere, unspecified ear; Translations: [Otitis externa in other diseases classified elsewhere, unspecified ear] Onset: 03-07-2022 Chronic Other ear and sense organ disorders (2 sources) Acute infective otitis externa; Translations: [Other infective otitis externa, bilateral] 04-07-2024 Episodic Other ear and sense organ disorders (2 sources) Otorrhea of bilateral ears; Translations: [Otorrhea, bilateral] 11-03-2024 Episodic Other ear and sense organ disorders (3 sources) Otorrhea; Translations: [Otorrhea, unspecified ear] Onset: 11-03-2024 11-03-2024 Episodic Other ear and sense organ disorders (1 source) Otorrhea, bilateral; Translations: [Otorrhea, bilateral] Onset: 11-03-2024 Episodic Other eye disorders (1 source) Excessive blinking - involuntary; Translations: [Other disorders affecting eyelid function] Onset: 12-06-2024 12-06-2024 Episodic Other gastrointestinal disorders (1 source) Dysphagia; Translations: [Dysphagia, unspecified] Onset: 12-06-2024 12-06-2024 Episodic Other nutritional; endocrine; and metabolic disorders (1 source) Overweight in adulthood with body mass index of 25 or more but less than 30; Translations: [Body mass index (BMI) 25.0-25.9, adult] 12-24-2023 Episodic Other nutritional; endocrine; and metabolic disorders (1 source) Body mass index (BMI) 25.0-25.9, adult; Translations: [Body mass index (BMI) 25.0-25.9, adult] Onset: 12-16-2023 Episodic Other skin disorders (1 source) Acne; Translations: [Acne, unspecified] Onset: 12-06-2024 12-06-2024 Episodic Other upper respiratory infections (1 source) Chronic sinusitis; Translations: [Chronic sinusitis, unspecified] Onset: 12-06-2024 12-06-2024 Chronic Otitis media and related conditions (20 sources) Acute suppurative otitis media without spontaneous rupture of ear drum; Translations: [Acute suppurative otitis media without spontaneous rupture of ear drum, right ear] Onset: 04-11-2022 Resolved: 08-04-2024 12-18-2023 Episodic Skull and face fractures (1 source) Fracture of tooth ; Translations: [Fracture of tooth (traumatic), initial encounter for closed fracture] 12-06-2024 Episodic Thyroid disorders (5 sources) Hypothyroidism, unspecified; Translations: [Hypothyroidism] Onset: 03-26-2022 Chronic Unclassified (1 source) Ear Drainage Onset: 04-07-2024 Past or Other Problems Problem Classification Problem Date Documented Da te Episodic/Chronic Other ear and sense organ disorders (11 sources) Excessive cerumen in ear canal ; Translations: [Impacted cerumen, bilateral] Onset: 03-07-2022 03-07-2022 Episodic Other ear and sense organ disorders (7 sources) Acute otitis externa of bilateral ears; Translations: [Unspecified acute noninfective otitis externa, bilateral] Onset: 04-07-2024 Resolved: 08-04-2024 04-07-2024 Episodic Other ear and sense organ disorders (1 source) Ear problem Onset: 08-04-2024 Episodic Other ear and sense organ disorders (1 source) Other infective otitis externa, bilateral; Translations: [Other infective otitis externa, bilateral] Onset: 04-07-2024 Episodic Results Test Name Value Interpretation Reference Range Facility Anesthesia Postprocedure Sharonda luationon 12-29-2023 [employer] Authentication Interface Message Text Anesthesia Postoperative Assessment: Vital Signs (most recent): BP 132/69 (BP Location: left arm) Pulse 79 Temp 36.9 ???C (98.4 ???F) (Temporal) Resp 12 Ht 5' 4 (1.626 m) Wt 155 lb 11.2 oz (70.6 kg) SpO2 92% BMI 26.73 kg/m??? Anesthesia Post Evaluation Level of consciousness: arousable Post-procedure exam normal. Body temperature, hydration status, PONV and pain evaluated and addressed. Pain management: adequate Hydration status: normal PONV:No nausea/vomiting reported Cardiopulmonary status stable Respiratory status: acceptable Cardiovascular status: acceptable ANESTHESIA NOTABLE EVENTS: No notable events documented. Normal [facility] Anesthesia Preprocedure Eval uationon 12-29-2023 Mobile [employer] Authentication Interface Message Text ASA: 3 No history of anesthetic complications NPO status: Greater than 8 hours Past Medical History and Review of Systems Pulmonary (+) asthma Dental Comment: S/p multiple dental procedures Endo (+) hypothyroidism Neuro/Psych Comment: Autism Severe intellectual disability Pervasive developmental disorder Dysphagia Craniostenosis Cardiovascular - negative ROS (+) Surgical risk: intermediate; Cardiac condition: no apparent No previous ECG available GI/Hepatic/Renal (+) nephrolithiasis Heme/Other - negative ROS Physical Exam Airway Mallampati: III TM distance: Adequate Micrognathia: Not present Jaw opening: Adequate Neck flexion: Adequate Dental PE (+) intact and missing teeth (crowding) Pulmonary - pulmonary exam normal Cardiovascular - cardiovascular exam normal Neuro - neurological exam normal Plan Anesthesia plan: general; (ETT) Anesthesia risks / alternatives discussed pre-op Questions answered / anesthesia plan accepted Past medical history, surgical history, allergies, and medications reviewed. Pertinent laboratory tests, EKG, imaging, and consults reviewed and I have personally seen and evaluated the patient, repeating garcia portions of the history and physical examination. Attestation: Anesthesia options were discussed with the patient and/or legal tax representative. The risks, benefits and alternatives were reviewed. Questions regarding anesthesia were answered. Patient and/or legal tax representative knows such anesthetics and procedures may be performed by Resident physicians, Certified Anesthesiologist Assistants, or Certified Nurse Anesthetists under the supervision of a physician. The patient /or the patient's legal tax representative agree with the plan for anesthesia. [facility] Normal [facility] Anesthesia Transfer Of Careo n 12-29-2023 [employer] Authentication Interface Message Text Patient taken to PACU. Patient was awake, comfortable, and stable on arrival. Anesthesia Transfer of Care Note Past Medical History: Past Medical History: Diagnosis Date Acne halfway info - Auto Accessories Installer Asthma (HCC) halfway info - Auto Accessories Installer Autism ([facility]) halfway info - Auto Accessories Installer Chronic periodontal disease halfway info - Auto Accessories Installer Chronic sinusitis halfway info - Auto Accessories Installer Craniostenosis halfway info - Auto Accessories Installer Dysphagia halfway info - Auto Accessories Installer Eczema halfway info - Auto Accessories Installer History of kidney stones halfway info - Auto Accessories Installer Hypothyroidism halfway info - Auto Accessories Installer PDD (pervasive developmental disorder) ([facility]) halfway info - Auto Accessories Installer Seizure disorder ([facility]) halfway info - Auto Accessories Installer Severe intellectual disability shelter information Sleep Apnea/Positive STOP-BANG: No Problem List: Patient Active Problem List: (none) - all problems resolved or deleted Past Surgical History: Review of patient's past surgical history indicates: DENTAL RESTORATIONS (09/06/2014) Procedure: DENTAL RESTORATIONS; Surgeon: Jan Joshua DDS; Location: PER[facility]OPER[facility]IVE SERVICES; Service: Dental DENTAL RESTORATIONS (03/14/2017) Procedure: DENTAL EXAM, X-RAY, DEEP CLEANING UNDER ANESTHESIA; Surgeon: Ayan Hanson DDS; Location: [facility] Surgery [place]; Service: Dental EXTRACTION, TOOTH (03/14/2017) Procedure: EXTRACTION, TOOTH; Surgeon: Ayan Hanson DDS; Location: [facility]; Service: Dental DENTAL RESTORATIONS (06/04/2019) Procedure: DENTAL EXAM, X-RAY AND CLEANING UNDER ANESTHESIA ; Surgeon: Ayan Hanson DDS; Location: [facility]; Service: Dental Allergies: Codeine and Seasonal ic Basic Operating Room Facts: Surgeon(s): Ayan Hanson DDS Anesthesiologist: Robby Wang MD ASSISTANT STORE MANAGER SALES: Ingrid Frias APRN-CRNA DENTAL RESTORATIONS Intraoperative Events: No acute event ASA: 3 EBL: Not documented Urine Not documented Lactated Ringers and NaCl 0.9%: Fluid Totals (Filter: LR and NaCl 0.9% Medications Shown) Medication Calculated Total Lactated Ringers 700 mL / 1 bag Cell Saver: Not documented Blood Volume Values: Blood Products None MTP Blood: MTP PRBC: Not documented MTP FFP: Not documented MTP PLT: Not documented MTP Cryo: Not documented MTP Whole Blood: Not documented Current Vasoactive Medications: {Vasoactive Medications: None Lines, Drains, Airways Peripheral IV Access: 12/29/23 0725 22 gauge Right Forearm (Active) Airway Insertion Details [REMOVED] Advanced Airway: ETT, Nasal;Cuffed #6.5 (Removed) 12/29/23 0739 Pre-Oxygenation/ Induction: Mask Rapid Sequence Induction?: Mask Ventilation: Easy;Two-person;w/na rio airway Blade Type: Mac Blade Size: 3.5 Visualization: Grade 1 Airway Type: ETT, Nasal;Cuffed Airway Size: #6.5 Post Insertion Assessment: Confirmation: Equal bilateral breath sounds, CO2 confirmed # Attempts >1: Special Equipment: Present on Admission?: Previously Removed / Not Present: Removal Reason: Not Removed at Discharge: Removed 12/29/23 0900 Secured via: Taped 12/29/23 0750 Site Assessment WNL 12/29/23 0750 All non-working IVs have been removed: N/A Laboratory Data: CBC (last 3 years, up to 8 values) No lab values to display. BMP (last 3 years, up to 8 values) No lab values to display. Basic Metabolic Panel No lab values to display. No results found for: INR No result for BNP LFT's (last 3 years, up to 8 values) No lab values to display. Arterial Blood Gases None Hand off Completed: Yes 1. The patient was identified. 2. Pertinent medical history was relayed. 3. A brief discussion was had about any pertinent surgical/ procedural issues. 4. Intraoperative/ anesthetic management issue and concerns were discussed. 5. Plans for the early post-operative period relayed. 6. An opportunity for questions and acknowledgment of understanding of the report was received. LINDSEY Ovalle Normal [facility] Brief Operative Noteon 12-28 [employer] Authentication Interface Message Text Brief Operative Note PHE OR 3 Shayan Suggs 28 year old male Surgical Contact Serial Number: [id number] Preoperative Diagnosis: Pre-op Diagnosis * Caries [K02.9] Autism [F84.0] Seizures disorder [G40] Severe Intellectual Disability [F72] Postoperative Diagnosis: Autism [F84.0] Seizures disorder [G40] Severe Intellectual Disability [F72] Procedures: Exam [id number] X-Rays [id number] Cleaning [id number] Surgeon(s): Surgeon(s): Ayan Hanson DDS Aboelkheir, Mira, DDS Falcon Andara, Fernando DDS Staff: Cribber Nurse: Leeanne Valenzuela Anesthesia: General Anesthesiologist: Robby Wang MD ASSISTANT STORE MANAGER SALES: Ingrid Frias APRN-CRNA Specimen(s): * No specimens in log * Estimated Blood Loss: less than 5 cc Lines/Drains: * No LDAs found * Temporarily Retained Foreign Object: No Findings: Normal Complications: None Status at end of surgery: Stable Activity: weight bearing as tolerated Surgical wound class: No wound. Patient Class: Outpatient Surgery. Is this a patient scheduled as an outpatient that needs to be admitted as an inpatient? No Dr. Vilchis was present in the OR for the critical portion of the procedure and procedure sign-out. Signed by John Domingo DDS 12/29/2023 7:12 AM Normal [facility] OP Noteon 12-29-2023 [employer] Authentication Interface Message Text [facility] OR 3 Shayan Suggs 28 year old male Surgical Contact Serial Number: [id number] Preoperative Diagnosis: Pre-op Diagnosis * Caries [K02.9] Autism [F84.0] Seizures disorder [G40] Severe Intellectual Disability [F72] Postoperative Diagnosis: Autism [F84.0] Seizures disorder [G40] Severe Intellectual Disability [F72] Procedures: Exam [id number] X-Rays 25274 Cleaning 25075 Surgeon(s): Surgeon(s): Ayan Hanson DDS Executive Team Leader Surgeon: Cristy Merino DDS Falcon Andara, Fernando DDS Anesthesia: General- Nasal ETT Estimated Blood Loss: less than 5 cc IV Fluids: 700 cc Urine Output: Not measured. Findings: The patient was brought to the operating room and placed in the supine position on the operating room table. Following satisfactory induction of GA. The patient was intubated with a nasal endotracheal tube. He was then prepped and drapped in the usual sterile fashion for dental procedures. Full mouth series were then taken and an oral examination was completed. A moistened throat pack was then placed. Full mouth scaling was then performed. The radiographs were examined by the attending and the resident and used in conjunction with th oral exam to formulate a treatment plan. Restorations NONE, extraction and surgical NONE. The dentition was cleaned and then polished with prophy paste. The oral cavity was irrigated and suctioned then the throat pack was removed. Fluoride treament was placed on the dentition. The patient tolerated the procedure well was extubated in the operating room, and taken to the PACU in stable condition. Complications: None Status at end of surgery: Stable Medications: Outpatient Medications Marked as Taking for the 12/29/23 encounter (Hospital Encounter) Medication Sig Dispense Refill FLUTICASONE PROPIONATE HFA INHALATION Inhale by mouth. levothyroxine (SYNTHROID) 50 MCG tablet Take 50 mcg by mouth daily. loratadine (CLARITIN) 10 MG tablet Take 10 mg by mouth daily. montelukast (SINGULAIR) 10 MG tablet Take 10 mg by mouth daily. Potassium Citrate (UROCIT-K 15) 15 MEQ (1620 MG) TBCR Take 1 Tab by mouth 3 times daily. Dictated by: John Domingo DDs, Dr Vilchis was present for the critical portions of the procedure. John Domingo DDS 12/29/2023 7:24 AM Normal [facility] Progress Noteson 12-29-2023 Mobile [employer] Authentication Interface Message Text ----- Friday, December 29, 2023 at 8:36:09 AM ----- ----- Provider: Arun Vilchis DDS -- Clinic: [facility] ----- [place] notes, [place], only cleaning was needed, crowded teeth, food accumulation, not calculus. - [facility] OR 3 Shayan Suggs 28 year old male Surgical Contact Serial Number: [id number] Preoperative Diagnosis: Pre-op Diagnosis * Caries [K02.9] * Autism [F84.0] * Seizures disorder [G40] * Severe Intellectual Disability [F72] Postoperative Diagnosis: * Autism [F84.0] * Seizures disorder [G40] * Severe Intellectual Disability [F72] Procedures: Exam [id number] X-Rays 29452 Cleaning 71209 Surgeon(s): Surgeon(s): Ayan Hanson DDS Executive Team Leader Surgeon: Cristy Merino DDS Falcon Andara, Fernando DDS Anesthesia: General- Nasal ETT Estimated Blood Loss: less than 5 cc IV Fluids: 700 cc Urine Output: Not measured. Findings: The patient was brought to the operating room and placed in the supine position on the operating room table. Following satisfactory induction of GA. The patient was intubated with a nasal endotracheal tube. He was then prepped and drapped in the usual sterile fashion for dental procedures. Full mouth series were then taken and an oral examination was completed. A moistened throat pack was then placed. Full mouth scaling was then performed. The radiographs were examined by the attending and the resident and used in conjunction with th oral exam to formulate a treatment plan. Restorations NONE, extraction and surgical NONE. The dentition was cleaned and then polished with prophy paste. The oral cavity was irrigated and suctioned then the throat pack was removed. Fluoride treament was placed on the dentition. The patient tolerated the procedure well was extubated in the operating room, and taken to the PACU in stable condition. Complications: None Status at end of surgery: Stable Medications: Outpatient Medications Marked as Taking for the 12/29/23 encounter (Hospital Encounter) Medication Sig Dispense Refill * FLUTICASONE PROPIONATE HFA INHALATION Inhale by mouth. * levothyroxine (SYNTHROID) 50 MCG tablet Take 50 mcg by mouth daily. * loratadine (CLARITIN) 10 MG tablet Take 10 mg by mouth daily. * montelukast (SINGULAIR) 10 MG tablet Take 10 mg by mouth daily. * Potassium Citrate (UROCIT-K 15) 15 MEQ (1620 MG) TBCR Take 1 Tab by mouth 3 times daily. Dictated by: John Domingo DDs, Dr Vilchis was present for the critical portions of the procedure. John Domingo DDS 12/29/2023 7:24 AM Normal [facility] Telephone Encounteron 2023 [employer] Authentication Interface Message Text Anesthesia consent obtained and scanned into [employer]. Scheduled for surgery 12/29/2023. Normal [facility] Patient Instructionson 12-15 [employer] Home [employer] Authentication Interface Message Text On the morning of your surgery, please take only the following medications, with a small sip of water: FLUTICASONE PROPIONATE HFA INHALATION albuterol (PROVENTIL) (2.5 mg/3 mL) nebulizer solution levothyroxine (SYNTHROID) 50 MCG tablet loratadine (CLARITIN) 10 MG tablet montelukast (SINGULAIR) 10 MG tablet Potassium Citrate (UROCIT-K 15) 15 MEQ (1620 MG) TBCR Do not take any Aspirin 7 days before surgery. Do not take any Ibuprofen, Aleve, Advil, or Motrin,Meloxicam,Nap rosyn,Toradaol or any other NSAIDS 3 days before surgery. May take over the counter Acetaminophen (Tylenol) as needed for pain. Please hold all Vitamin E, [place] 3, fish oil and herbal supplements for 1 week prior to surgery. Please use this CHECKLIST to prepare for your surgery/procedure: ? Assume that any lab or testing done during your Pre-admission testing appointment is within normal limits unless otherwise contacted. ? [facility] one business day prior to surgery for surgery arrival time and location. ? Please plan to restart your medications the day after surgery unless otherwise explicitly instructed. ? Please contact your surgeon's/procedural ist's office for any surgical or recovery types of questions. ? CANCELLING YOUR SURGERY/PROCEDURE: If you get a cold, are not feeling well, or become , please call your surgeon's office as soon as possible. ? Refer to your Preparing for Your Surgery/Procedure booklet or [email or web address] if you have questions. Contact the Pre-Admission Testing department at [phone] or your surgeon's office with any questions that are not answered. ? Eating and drinking before surgery: Adult Patients: No food or drink for 8 hours prior to surgery check in time. A sip of water with morning medications is acceptable up to two hours prior to your arrival time Enhanced Recovery After Surgery (ERAS), bariatric, and endoscopy/colonoscop y patients should follow their surgeon's/procedural ist's instructions for clear fluids prior to surgery. Pediatric Patients (under the age of 1212 years old): Patients are not to have solid food for 8 hours prior to coming for surgery. Patients can have infant formula or non-human milk (skim, 2%, whole, nut-milks, soy, etc.) 6 hours prior to coming for surgery. Patients can have breast milk up to 4 hours prior to coming for surgery. Patients can have clear liquids (water, flavored ramírez, Pedialyte) up to 2 hours prior to coming for surgery. ON THE DAY OF SURGERY: ? DO bring your ID, insurance card, medication list, and a small amount of santacruz for filling prescriptions and any medical co-pays. ? Do NOT wear any jewelry, (including rings, earrings, or mouth, tongue, or body piercings). Metal jewelry could cause constriction, amputation, or lujan. Loose or bulky things in your mouth can be unsafe and result in breathing problems. ? DO bring glasses if you wear contacts and other assistance items such as oxygen, inhaler, cane, walker, etc. ? Do NOT bring valuables, credit cards, or large amounts of santacruz. ? Do NOT wear lotion or strong-smelling fragrance (perfume, cologne, cream or lotion). ? ARRANGE FOR A RIDE: If you are scheduled to go home the same day of surgery, a responsible adult MUST drive or accompany you home in a car, cab, shared ride service, or Metro-van. You will not be allowed to drive yourself home or travel home alone. Your surgery may be cancelled if you do not have a ride. A responsible adult must stay with you after surgery. Please call [employer] if you need transportation assistance or have concerns about going home [phone]. ? PEDIATRIC or ADOLESCENTS: Parents or a legal guardian must remain at the hospital during surgery. You will need to make childcare arrangements for your other small children to remain at home or bring an adult with you who can supervise them in the waiting area while you are with your child. Please bring legal guardianship papers with you if applicable. Patients who whose assigned sex at was female, and are starting puberty, will be tested for per hospital policy. ? SLEEP APNEA PATIENTS: Bring your sleep apnea machine and mask. ? PLEASE BE ON TIME. A late arrival may result in the cancellation/ delay of your surgery. ? Post-op Nausea and Vomiting: A risk of anesthesia is nausea and/or vomiting (PONV). Certain patients are at higher risk than others. Talk to your anesthesiologist about the plan to minimize this risk. In general, it is best to start with only ice chips or small sips of water, then progress to clear, non-alcoholic fluids. You do not have to eat if you do not feel like it; fluids are the most important in the first 24 hours after surgery. If you start to eat, try bananas, applesauce, plain toast, saltine crackers, or broth; avoid fried or fatty foods. Make sure to eat something (more content not included)... Normal [facility] Progress Noteson 08-26-2023 [employer] Authentication Interface Message Text Parent/guardian/saritha ent was contacted for PSE AND OR scheduled -- confirmed information with mom, also informed mom importance of receiving PSE visit -- if not received surgery will be canceled--Jennifer Normal [facility] T3 Freeon 08-22-2023 Free T3 [Mass/Vol] 2.6 pg/mL Invalid Interpretation Code 2.0-4.4 [facility] Comment on above: Result Comment: Perf ormed at: [facility] [address] [id number] PhD Jaret Teresa Performed By: #### 2 206296, 6922025, 0826653, 0685340, 5097805, 08935305 #### [facility] [address] [place] [address] CBC w/Indiceson 08-20-2023 Erythrocyte distribution width (RBC) [Ratio] 15.3 % High 10.9-14.2 [facility] Comment on above: Performed By: #### 2 266235, 8034674, 5806178, 1778213, 4641351, 85924936 #### [facility] [address] [place] [address] Hematocrit (Bld) [Volume fraction] 45.1 % Normal 37.7-49.0 [facility] Comment on above: Performed By: #### 2 467154, 3225860, 7328624, 1831551, 7450035, 35144249 #### [facility] [address] [place] [address] Hemoglobin (Bld) [Mass/Vol] 14.5 g/dL Normal 13.5-17.5 [facility] Comment on above: Performed By: #### 2 287879, 1071717, 7393086, 3286762, 7822031, 39578329 #### [facility] [address] [place] [address] MCH (RBC) [Entitic mass] 25.6 pg Low 27.0-34.0 [facility] Comment on above: Performed By: #### 2 045410, 6517637, 6616449, 5419693, 3857026, 95398393 #### [facility] [address] [place] [address] MCHC (RBC) [Mass/Vol] 32.1 g/dL Normal 31.4-36.0 [facility] Comment on above: Performed By: #### 2 461981, 1937640, 5855295, 2864595, 8465515, 07934514 #### [facility] [address] [place] [address] MCV (RBC) [Entitic vol] 79.6 fL Low 80.0-100.0 [facility] Comment on above: Performed By: #### 2 668231, 7056419, 9099397, 8730828, 9281750, 50730563 #### [facility] [address] [place] [address] Platelet mean volume (Bld) [Entitic vol] 9.7 fL Normal 6.4-10.8 [facility] Comment on above: Performed By: #### 2 028130, 5978437, 7369455, 4314292, 2772625, 63835671 #### [facility] [address] [place] [address] Platelets (Bld) [#/Vol] 159.0 E9/L Normal 150.0-500.0 [facility] Comment on above: Performed By: #### 2 789921, 0583835, 1453260, 0411535, 0635659, 41709874 #### [facility] [address] [place] [address] RBC (Bld) [#/Vol] 5.7 E12/L Normal 4.3-5.9 [facility] Comment on above: Performed By: #### 2 747056, 0087709, 9042107, 3545985, 8052299, 08269735 #### [facility] [address] [place] [address] RBC size Nom (Bld) NORMAL Invalid Interpretation Code [facility] Comment on above: Performed By: #### 2 837391, 7374902, 2986150, 9953497, 7536784, 94406794 #### [facility] [address] [place] [address] WBC corrected for nucl RBC Auto (Bld) [#/Vol] 5.5 E9/L Normal 4.0-11.0 [facility] Comment on above: Performed By: #### 2 920867, 1010404, 6133078, 8422121, 6651872, 54010506 #### [facility] [address] [place] [address] CHEMISTRYOrdered By: SYSTEM SYSTEM on 08-20-2023 Albumin [Mass/Vol] 4.9 g/dL Normal 3.3 - 5.0 gm/dL [facility] Chem Albumin/Globulin [Mass ratio] 1.6 {ratio} Normal 1.1 - 2.2 [facility] ALP [Catalytic activity/Vol] 120 [iU]/d High 21 - 98 Int._Unit/L [facility] Chem ALT No additional P-5'-P [Catalytic activity/Vol] 23 [iU]/d Normal 6 - 46 Int._Unit/L [facility] Anion gap [Moles/Vol] 12 mmol/L Normal 6 - 16 mEq/L R emisol Chem AST [Catalytic activity/Vol] 22 [iU]/d Normal 5 - 43 Int._Unit/L [facility] Bilirubin [Mass/Vol] 0.4 mg/dL Normal 0.0 - 1 .1 mg/dL [facility] Calcium [Mass/Vol] 10.0 mg/dL Normal 8.9 - 11. 1 mg/dL [facility] Chloride [Moles/Vol] 105 mmol/L Normal 101 - 1 11 mmol/L [facility] CO2 [Moles/Vol] 29 mmol/L Normal 21 - 31 mmol/L [facility] Creatinine [Mass/Vol] 1.2 mg/dL Normal 0.5 - 1.3 mg/dL [facility] eGFR 85 mL/min/1.73 m2 Normal >=59mL/min /1 .73 m2 [facility] Free T4 [Mass/Vol] 0.89 ng/dL Normal 0.58 - 1. 64 ng/dL [facility] Globulin (S) [Mass/Vol] 3.0 g/dL Normal 1.4 - 4.0 gm/dL [facility] Glucose [Mass/Vol] 74 mg/dL Normal 55 - 199 mg/dL [facility] Potassium [Moles/Vol] 4.2 mmol/L Normal 3.5 - 5.3 mmol/L [facility] Protein [Mass/Vol] 7.9 g/dL High 6.0 - 7.8 gm/dL [facility] Sodium [Moles/Vol] 142 mmol/L Normal 135 - 145 mmol/L [facility] TSH Qn 3.53 m[IU]/L Normal 0.34 - 5.60 mcIU/mL [facility] Urea nitrogen [Mass/Vol] 18 mg/dL Normal 5 - 21 mg/dL [facility] Urea nitrogen/Creatinine [Mass ratio] 15 mg/mg Normal 10 - 20 [facility] CMPon 08-20-2023 Albumin [Mass/Vol] 4.9 g/dL Normal 3.3-5.0 [facility] Comment on above: Performed By: #### 2 302069, 5302148, 8846700, 0150581, 0781349, 69360714 #### [facility] [address] [place] [address] Albumin/Globulin (S) [Mass conc ratio] 1.6 Normal 1.1-2.2 [facility] Comment on above: Performed By: #### 2 938980, 9465449, 7163636, 8237724, 3052592, 40164114 #### [facility] [address] [place] [address] ALP [Catalytic activity/Vol] 120 Int._Unit/L High 21-98 [facility] Comment on above: Performed By: #### 2 540038, 1008659, 5953696, 4151027, 8749817, 23168813 #### [facility] [address] [place] [address] ALT No additional P-5'-P [Catalytic activity/Vol] 23 Int._Unit/L Normal 6-46 [facility] Comment on above: Performed By: #### 2 244622, 5073957, 8714176, 0125295, 5848848, 26169291 #### [facility] [address] [place] [address] Anion gap [Moles/Vol] 12 mmol/L Normal 6-16 [facility] Comment on above: Performed By: #### 2 899983, 9950032, 1656963, 2752145, 6091918, 94403879 #### [facility] [address] [place] [address] AST [Catalytic activity/Vol] 22 Int._Unit/L Normal 5-43 [facility] Comment on above: Performed By: #### 2 888403, 8665934, 2187843, 5987197, 0927428, 81372080 #### [facility] [address] [place] [address] Bilirubin [Mass/Vol] 0.4 mg/dL Normal 0.0-1.1 [facility] Comment on above: Performed By: #### 2 696744, 1503093, 0809624, 0751732, 8938279, 90799491 #### [facility] [address] [place] [address] Calcium [Mass/Vol] 10.0 mg/dL Normal 8.9-11.1 [facility] Comment on above: Performed By: #### 2 932698, 7011615, 5421724, 8145708, 4891168, 99679775 #### [facility] [address] [place] [address] Chloride [Moles/Vol] 105 mmol/L Normal 101-111 [facility] Comment on above: Performed By: #### 2 165716, 5351025, 6435785, 0349289, 4741075, 41895479 #### [facility] [address] [place] [address] CO2 [Moles/Vol] 29 mmol/L Normal 21-31 [facility] Comment on above: Performed By: #### 2 605652, 6122456, 0213323, 6697592, 8691189, 26319509 #### [facility] [address] [place] [address] Creatinine [Mass/Vol] 1.2 mg/dL Normal 0.5-1.3 [facility] Comment on above: Performed By: #### 2 475599, 8764576, 2093050, 5907349, 2170984, 08296621 #### [facility] [address] [place] [address] Globulin (S) [Mass/Vol] 3.0 g/dL Normal 1.4-4.0 [facility] Comment on above: Performed By: #### 2 853622, 2968056, 7231958, 2988862, 3516861, 56977600 #### [facility] [address] [place] [address] Glucose [Mass/Vol] 74 mg/dL Normal 55-199 [facility] Comment on above: Performed By: #### 2 237182, 6221898, 1225084, 9080506, 2282498, 06510053 #### [facility] [address] [place] [address] Potassium [Moles/Vol] 4.2 mmol/L Normal 3.5-5.3 [facility] Comment on above: Performed By: #### 2 702037, 2853760, 4206527, 2346273, 2160352, 91697001 #### [facility] [address] [place] [address] Protein [Mass/Vol] 7.9 g/dL High 6.0-7.8 [facility] Comment on above: Performed By: #### 2 136354, 7747016, 5924185, 4737849, 3558207, 99113969 #### [facility] [address] [place] [address] Sodium [Moles/Vol] 142 mmol/L Normal 135-145 [facility] Comment on above: Performed By: #### 2 732161, 2817988, 5524085, 3030332, 9349179, 23271596 #### [facility] [address] [place] [address] Urea nitrogen [Mass/Vol] 18 mg/dL Normal 5-21 [facility] Comment on above: Performed By: #### 2 468375, 1881690, 5494523, 3376407, 7930984, 89510858 #### [facility] [address] [place] [address] Urea nitrogen/Creatinine [Mass ratio] 15 No Units Normal 10-20 [facility] Comment on above: Performed By: #### 2 274846, 0214354, 7117898, 5247739, 0184397, 93609411 #### [facility] [address] [place] [address] Free T4on 08-20-2023 Free T4 [Mass/Vol] 0.89 ng/dL Normal 0.58-1.64 [facility] Comment on above: Performed By: #### 2 330498, 3591831, 1399710, 0421964, 5747109, 05580639 #### [facility] [address] [place] [address] HEMATOLOGYOrdered By: SYSTEM SYSTEM on 08-20-2023 Erythrocyte distribution width (RBC) [Ratio] 15.3 % High 10.9 - 14.2 % [facility] Hematocrit (Bld) [Volume fraction] 45.1 % Normal 37.7 - 49.0 % [facility] Hemoglobin (Bld) [Mass/Vol] 14.5 g/dL Normal 13.5 - 17.5 gm/dL [facility] MCH (RBC) [Entitic mass] 25.6 pg Low 27.0 - 34.0 pg Rem[facility] Heme MCHC (RBC) [Mass/Vol] 32.1 g/dL Normal 31.4 - 36.0 gm/dL [facility]e MCV (RBC) [Entitic vol] 79.6 fL Low 80.0 - 100.0 fL [facility] Platelet mean volume (Bld) [Entitic vol] 9.7 fL Normal 6.4 - 10.8 fL [facility] Platelets (Bld) [#/Vol] 159.0 E9/L Normal 150.0 - 500.0 E9/L [facility] RBC (Bld) [#/Vol] 5.7 E12/L Normal 4.3 - 5.9 E12/L [facility] RBC size Nom (Bld) NORMAL *NA* (08/20/23 7:25 AM) Invalid Interpretation Code [facility] WBC corrected for nucl RBC Auto (Bld) [#/Vol] 5.5 E9/L Normal 4.0 - 11.0 E9/L [facility] Physician Orderon 08-20-2023 Physician Order [id number] 0#1.00TIFF Normal [facility] TSHon 08-20-2023 TSH Qn 3.53 m[IU]/L Normal 0.34-5.60 [facility] Comment on above: Performed By: #### 2 089191, 7368736, 3181812, 2739007, 6017411, 99899959 #### [facility] [address] [place] [address] eGFRon 08-20-2023 eGFR 85 mL/min/1.73 m2 Normal >=59 [facility] Comment on above: Order Comment: Order added by Discern Expert. Performed By: #### 2 907130, 0633859, 8637510, 7278123, 5352863, 52794955 #### [facility] [address] [place] [address] Patient Instructionson 05-14 [employer] Authentication Interface Message Text Pt was seen today for dental exam. Please note pt has no urgent dental treatment that has been noticed. Exam By Patricia Childers. Pt was originally placed on OR list 10/12/21. Confirmed contact information and treatment request for OR. Please wait for phone call to set up pre-surgical evaluation, at that time the OR appt will be set up as well. See Preparing for OR checklist given to caregiver. Normal [facility] [employer] [facility] Progress Noteson 05-14-2023 [employer] Authentication Interface Message Text ----- Sunday, May 14, 2023 at 12:04:02 PM ----- ----- Provider: [id number] Christopher -- Clinic: [place] ----- [facility], Pt is ready for tx. Pt presents for examination. pt has diagnosis of intellectual disability, as well as seizure disorder and semi-verbal, last seen in the OR in 2019. Pt states no when asked if he is in pain. Unable to take radiographs due to pt cooperation and would only allow for limited mouth mirror clinical exam (kept pulling away). Heavy plaque accumulation observed. Best TX is for comprehensive exam with radiographs, cleaning and tx to be done in the OR under [place]. made sure pt ws on tx request and explained that it is a 18 month to 2 year wait from the time the pt was placed on the list. gave caregiver preparing for surgery check list as well as AVS. Exam and diagnosis by: Patricia Childers [facility]. OR ----- Signed on Sunday, May 14, 2023 at 1:28:03 PM ----- ----- Provider: Arun Vilchis DDS -- Clinic: [place] ----- Normal [facility] FREE T4on 03-26-2022 Free T4 [Mass/Vol] 0.92 ng/dL Normal 0.76-1.46 [facility] Comment on above: Performed By: #### F T4 #### [facility] [address] [place] [address] Dr. Minesh Meza PROF 14(COMP METB)on 022 Albumin [Mass/Vol] 4.0 g/dL Normal 3.4-5.0 [facility] Comment on above: Performed By: #### C MP, TSH #### [facility] [address] [place] [address] Dr. Minesh Meza Albumin/Globulin [Mass ratio] 1.1 {ratio} Normal [facility] Comment on above: Performed By: #### C MP, TSH #### [facility] [address] [place] [address] Dr. Minesh Meza ALP [Catalytic activity/Vol] 137 U/L Critically high 46-116 [facility] Comment on above: Performed By: #### C MP, TSH #### [facility] [address] [place] [address] Dr. Minesh Meza ALT [Catalytic activity/Vol] 43 U/L Normal 16-63 [facility] Comment on above: Performed By: #### C MP, TSH #### [facility] [address] [address] [address] Minesh Meza Anion gap [Moles/Vol] 8.4 mmol/L Normal [facility] [facility] Comment on above: Performed By: #### C MP, TSH #### [facility] [address] [address] [address] Minesh Meza AST [Catalytic activity/Vol] 21 U/L Normal 15-37 [facility] Comment on above: Performed By: #### C MP, TSH #### [facility] [address] [address] [address] Minesh Meza Bilirubin [Mass/Vol] 0.4 mg/dL Normal 0.2-1.0 [facility] Comment on above: Performed By: #### C MP, TSH #### [facility] [address] [address] [address] Minesh Meza Calcium [Mass/Vol] 9.2 mg/dL Normal 8.5-10.1 [facility] Comment on above: Performed By: #### C MP, TSH #### [facility] [address] [address] [address] Minesh Meza Chloride [Moles/Vol] 102 mmol/L Normal 98-107 [facility] Comment on above: Performed By: #### C MP, TSH #### [facility] [address] [address] [address] Minesh Meza CO2 [Moles/Vol] 33.0 mmol/L Critically high 21.0-32.0 [facility] Comment on above: Performed By: #### C MP, TSH #### [facility] [address] [address] [address] Minesh Meza Creatinine [Mass/Vol] 1.05 mg/dL Normal 0.70-1.30 [facility] Comment on above: Performed By: #### C MP, TSH #### [facility] [address] [address] [address] Minesh Meza EGFR-AF ROMANIAN >60 Normal >=60 [facility] Comment on above: Performed By: #### C MP, TSH #### [facility] [address] [address] [address] Minesh Meza EGFR-NON AF ROMANIAN >60 Normal >=60 [facility] Comment on above: Performed By: #### C MP, TSH #### [facility] [address] [address] [address] Minesh Meza Globulin (S) [Mass/Vol] 3.8 g/dL Normal [facility] Comment on above: Performed By: #### C MP, TSH #### [facility] [address] [address] [address] Minesh Meza Glucose [Mass/Vol] 89 mg/dL Normal 74-106 [facility] Comment on above: Performed By: #### C MP, TSH #### [facility] [address] [place] [address] Dr. Minesh Meza Potassium [Moles/Vol] 4.4 mmol/L Normal 3.5-5.1 [facility] Comment on above: Performed By: #### C MP, TSH #### [facility] [address] [place] [address] Dr. Minesh Meza Protein [Mass/Vol] 7.8 g/dL Normal 6.4-8.2 [facility] Comment on above: Performed By: #### C MP, TSH #### [facility] [address] [place] [address] Dr. Minesh Meza Sodium [Moles/Vol] 139 mmol/L Normal 136-145 [facility] Comment on above: Performed By: #### C MP, TSH #### [facility] [address] [place] [address] Dr. Minesh Meza Urea nitrogen [Mass/Vol] 13.0 mg/dL Normal 7.0-18.0 [facility] Comment on above: Performed By: #### C MP, TSH #### [facility] [address] [place] [address] Dr. Minesh Meza Urea nitrogen/Creatinine [Mass ratio] 12.4 mg/mg Normal [facility] Comment on above: Performed By: #### C MP, TSH #### [facility] [address] [address] [address] Minesh Meza TSHon 03-26-2022 TSH 3.176 uIU/mL Normal 0.358-3.740 [facility] Comment on above: Performed By: #### C MP, TSH #### [facility] [address] [address] [address] Minesh Meza Vital Signs Date Time Vital Sign Value Performing Clinician Facility 12-06-2024 10:220400 Diastolic blood pressure 81 mm[Hg] Toddmatthew Bhupendrakraig DDS Work Phone: [facility] 12-06-2024 10:220400 Heart rate 91 /min Romulo Khanrudolph [employer] Work Phone: [facility] 12-06-2024 10:22-0400 Systolic blood pressure 123 mm[Hg] Toddmatthew Bhupendrakraig [email or web address] Work Phone: [facility] 12-01-2024 13:56-0400 Body height 162.6 cm Cristino Mehama PA-C Work Phone: [facility] 12-01-2024 13:56-0400 Body mass index (BMI) [Ratio] 27.96 kg/m2 Cristino Pete PA-C Work Phone: [facility] 12-01-2024 13:56-0400 Body temperature 98.8 [degF] Cristino Mehama PA-C Work Phone: [facility] 12-01-2024 13:56-0400 Body weight 73.94 kg Cristino Mehama PA-C Work Phone: [facility] 11-03-2024 14:17-0400 Body height 162.6 cm Cristino Pete PA-C Work Phone: [facility] 11-03-2024 14:17-0400 Body mass index (BMI) [Ratio] 28.84 kg/m2 Cristino Mehama PA-C Work Phone: [facility] 11-03-2024 14:17-0400 Body weight 76.2 kg Cristino Pete PA-C Work Phone: [facility] 08-04-2024 08:46-0400 Body height 162.6 cm Cristino Mehama PA-C Work Phone: [facility] 08-04-2024 08:46-0400 Body mass index (BMI) [Ratio] 28.84 kg/m2 Cristino Mehama PA-C Work Phone: [facility] 08-04-2024 08:46-0400 Body weight 76.2 kg Cristino Mehama PA-C Work Phone: [facility] 04-27-2024 14:16-0500 Body mass index (BMI) [Ratio] 28.87 kg/m2 Cristino Pete PA-C Work Phone: [facility] 04-27-2024 14:16-0500 Body temperature 98.4 [degF] Cristino Pete PA-C Work Phone: [facility] 04-27-2024 14:16-0500 Body weight 76.3 kg Cristino Mehama PA-C Work Phone: [facility] 04-07-2024 14:04-0500 Body height 162.6 cm Cristino Pete PA-C Work Phone: [facility] 04-07-2024 14:04-0500 Body mass index (BMI) [Ratio] 28.49 kg/m2 Cristino Pete PA-C Work Phone: [facility] 04-07-2024 14:04-0500 Body weight 75.3 kg Cristino Mehama PA-C Work Phone: [facility] 01-14-2024 08:40-0400 Body height 162.6 cm Cristino Mehama PA-C Work Phone: [employer] 01-14-2024 08:40-0400 Body mass index (BMI) [Ratio] 27.46 kg/m2 Cristino GARCIA-C [facility] Phone: [facility] 01-14-2024 08:40-0400 Body weight 72.58 kg Cristino GARCIA-C [email or web address] 12-29-2023 09:30-0400 Body temperature 98.6 [degF] Ayan Hanson DDS Work Phone: [employer] 12-29-2023 09:30-0400 Diastolic blood pressure 90 mm[Hg] Ayan Hanson DDS Work Phone: [employer] 12-29-2023 09:30-0400 Heart rate 90 /min Ayan Hanson DDS Work Phone: [employer] 12-29-2023 09:30-0400 Respiratory rate 19 /min Ayan Hanson DDS Work Phone: [employer] 12-29-2023 09:30-0400 SaO2% (BldA) [Mass fraction] 96 % Ayan Hanson DDS Work Phone: [employer] 12-29-2023 09:30-0400 Systolic blood pressure 128 mm[Hg] Ayan Hanson DDS Work Phone: [employer] 12-29-2023 06:58-0400 Body height 162.6 cm Ayan Hanson DDS Work Phone: [employer] 12-29-2023 06:58-0400 Body mass index (BMI) [Ratio] 26.73 kg/m2 Ayan Hanson DDS Work Phone: [employer] 12-29-2023 06:58-0400 Body weight 70.63 kg Ayan Hanson DDS [facility] 12-18-2023 12:44-0400 Body height 162.6 cm Cristino Mehama PA-C Work Phone: [facility] 12-18-2023 12:44-0400 Body mass index (BMI) [Ratio] 26.74 kg/m2 Cristino Mehama PA-C Work Phone: [facility] 12-18-2023 12:44-0400 Body temperature 98.8 [degF] Cristino Pete PA-C Work Phone: [facility] 12-18-2023 12:44-0400 Body weight 70.67 kg Cristino Mehama PA-C [email or web address] 12-16-2023 11:02-0400 Body height 167.6 cm Aleena Boycetodd [employer] FINISH[employer]OSSING SUPERVISOR [facility] 12-16-2023 11:02-0400 Body mass index (BMI) [Ratio] 25.28 kg/m2 Aleena Berger [employer] FINISH[employer]OSSING SUPERVISOR Work Phone: [facility] 12-16-2023 11:02-0400 Body temperature 98.01 [degF] Aleena Berger BOX FINISHER[employer]CROSSING SUPERVISOR Work Phone: [facility] 12-16-2023 11:02-0400 Body weight 71.03 kg Aleena Berger BOX FINISHER[employer]CROSSING SUPERVISOR [facility] 12-16-2023 11:02-0400 Diastolic blood pressure 87 mm[Hg] Aleenalin Berger BOX FINISHER[employer]CROSSING SUPERVISOR Work Phone: [facility] 12-16-2023 11:02-0400 Heart rate 80 /min Aleena Gelstodd BOX FINISHER[employer]CROSSING SUPERVISOR [facility] 12-16-2023 11:02-0400 Respiratory rate 16 /min Aleena Gelstodd BOX FINISHER[employer]CROSSING SUPERVISOR Work Phone[facility] 12-16-2023 11:02-0400 SaO2% (BldA) [Mass fraction] 100 % Aleena Berger BOX FINISHER[employer]CROSSING SUPERVISOR Work Phone: [facility] 12-16-2023 11:02-0400 Systolic blood pressure 118 mm[Hg] Aleena Berger BOX FINISHER[employer]CROSSING SUPERVISOR Work Phone: [facility] Encounters Encounter Date Encounter Type Care Provider Facility Start: 12-06-2024 End: 12-06-2024 Patient encounter procedure Romulo Quarles DDS Work Phone: [employer] [facility] Comment on above: Dental caries on smo oth surface penetrating into dentin (Primary Dx); Broken tooth without complication Start: 12-01-2024 End: 12-01-2024 Office outpatient visit 15 minutes Cristino GARCIA-C [facility] Phone: [facility] Comment on above: Otomycosis (Primary Dx); Otorrhea of both ears; Dysfunction of both eustachian tubes Start: 12-01-2024 End: 12-01-2024 ambulatory [facility] Start: 11-04-2024 End: 11-04-2024 Telephone encounter Cristino GARCIA-C Work Phone: [facility] Start: 11-03-2024 End: 11-03-2024 Office outpatient visit 15 minutes Cristino Dupree PA-C Work Phone: [facility] Comment on above: Otomycosis (Primary Dx); Dysfunction of both eustachian tubes; Otorrhea of both ears Start: 11-03-2024 End: 11-03-2024 ambulatory [facility] Start: 09-04-2024 End: 09-04-2024 Letter encounter [facility] Start: 08-04-2024 End: 08-04-2024 Office outpatient visit 15 minutes Cristino Dupree PA-C Work Phone: [facility] Comment on above: Cerumen debris on ty mpanic membrane of both ears (Primary Dx); Dysfunction of both eustachian tubes Start: 08-04-2024 End: 08-04-2024 ambulatory [facility] Start: 04-27-2024 End: 04-27-2024 Office outpatient visit 10 minutes Cristino MCCORMICKC Work Phone: [facility] Comment on above: Other infective acut e otitis externa of both ears (Primary Dx); Acute mucoid otitis media of right ear Start: 04-27-2024 End: 04-27-2024 Clinical Support Ppbp Ent Audio 1 [facility] Comment on above: Other specified diso rders of eustachian tube, bilateral (Primary Dx) Start: 04-07-2024 End: 04-07-2024 Office outpatient visit 15 minutes Cristino Dupree PA-C Work Phone: [facility] Comment on above: Acute mucoid otitis media of right ear (Primary Dx); Dysfunction of both eustachian tubes; Cerumen debris on tympanic membrane of both ears; Other infective acute otitis externa of both ears Start: 04-07-2024 End: 04-07-2024 [facility] Start: 01-14-2024 End: 01-14-2024 Office outpatient visit 10 minutes Cristino MCCORMICKC Work Phone: [facility] Comment on above: Dysfunction of both eustachian tubes (Primary Dx); Otomycosis Start: 01-14-2024 End: 01-14-2024 ambulatory [facility] Start: 12-29-2023 End: 12-29-2023 ambulatory AYAN HANSON Facility:[facility] Start: 12-29-2023 End: 12-29-2023 Subsequent hospital visit by physician Ayan Hanson DDRoxie Work Phone: [facility] Start: 12-29-2023 End: 12-29-2023 Patient encounter procedure Ayan Hanson DDS Work Phone: [facility] Start: 12-26-2023 End: 12-26-2023 Telephone encounter Brandy Gonzalez [facility] Comment on above: PAT (Anesthesia cons ent obtained) Start: 12-25-2023 End: 12-25-2023 Telephone encounter Bette Rodriguez RN [facility] Comment on above: Pre-surgical Evaluat ion (DD adult dental restorations 12/28 under [place] at [place]. PAT completed - see future encounter for consent (request sent to main). EVON RN spoke to T[place]aricardo NPO p [phone], [place] address, and [phone] arrival time/) Start: 12-24-2023 End: 12-24-2023 Telephone encounter Bette Rodriguez RN [facility] Pre-Admission Testing Start: 12-18-2023 End: 12-18-2023 Office outpatient visit 10 minutes Cristino Bahman Dupree PA-C Work Phone: [facility] Comment on above: Acute suppurative ot itis media of right ear without spontaneous rupture of tympanic membrane, recurrence not specified (Primary Dx) Start: 12-18-2023 End: 12-18-2023 ambulatory [facility] Start: 12-16-2023 End: 12-16-2023 Patient encounter procedure Aleena Berger [employer] FINISHER[employer]CROSSING SUPERVISOR Work Phone: [facility] Comment on above: Pre-op testing (Prim bowen Dx); Body mass index (BMI) 25.0-25.9, adult Start: 12-16-2023 End: 12-16-2023 Patient encounter status Aleena Berger BOX FINISHER[employer]CROSSING SUPERVISOR Work Phone: [employer] Work Phone: Start: 12-16-2023 ambulatory UNKNOWN PROVIDER Facili ty:[facility] Start: 12-16-2023 Encounter for other preprocedural examination UNKNOWN PROVIDER [facility] [employer] [facility] Start: 10-16-2023 End: 10-16-2023 Admission to same day surgery center Patricia Hurley DDS Work Phone: [facility] Start: 08-20-2023 End: 08-20-2023 Lab Drop off CLINT CHOUDHARY [facility] Start: 08-20-2023 End: 08-21-2023 ambulatory CLINT CHOUDHARY Facility:[facility] Start: 07-31-[address] [facility] Jeana Faustin DDS Other Phone: [facility] Start: 05-14-2023 End: 05-16-2023 ambulatory UNKNOWN PROVIDER Facility:[facility] Start: 03-26-2022 End: 03-27-[address] CLINT CHOUDHARY Facility: Start: 10-12-2021 End: 10-16-2021 Patient encounter procedure Sade Vela [facility] Work Phone: [facility] Procedures Date Procedure Procedure Detail Performing Clinician Start: 12-06-2024 LIMITED ORAL EVALUAT ION - PROBLEM FOCUSED Romulo Quarles DDS Work Phone: Start: 12-06-2024 30 O AMALGAM FILLING Todd Quarles DDS Work Phone: Start: 12-18-2023 Follow-up visit Follow-up CRISTINO DUPREE Plan of Treatment Date Care Activity Detail Author Start: 2046 Shingles (RZV) Vacci ne (1 of 2) Shingles (RZV) Vaccine (1 of 2) [facility] Start: 12-01-2025 Adult BMI Screening Adult BMI Screen ing [facility] Start: 12-01-2025 Tobacco Screening Tobacco Screening [facility] Start: 11-03-2025 Adult BMI Screening Adult BMI Screen ing [facility] Start: 11-03-2025 Tobacco Screening Tobacco Screening [facility] Start: 04-27-2025 Adult BMI Screening Adult BMI Screen ing [facility] Start: 04-27-2025 Tobacco Screening Tobacco Screening [facility] Start: 04-07-2025 Adult BMI Screening Adult BMI Screen ing [facility] Start: 04-07-2025 Tobacco Screening Tobacco Screening [facility] Start: 01-24-2025 Influenza vaccination P [facility] Start: 01-13-2025 Adult BMI Screening Adult BMI Screen ing [facility] Start: 01-13-2025 Tobacco Screening Tobacco Screening [facility] Start: 12-17-2024 Adult BMI Screening Adult BMI Screen ing [facility] Start: 12-17-2024 Tobacco Screening Tobacco Screening [facility] Start: 12-01-2024 End: 12-01-2024 Patient encounter procedure 12/01/2024 2:15 PM EDT Office Visit [facility] [address] [place] [id number] Cristino Dupree, PA-C [address] [place] [id number] [facility] Start: 11-10-2024 End: 11-10-2024 Patient encounter procedure 11/10/2024 8:45 AM EDT Office Visit [facility] [address] [place] [id number] Crisitno Dupree, PA-C [address] [place] [id number] [facility] Start: 08-04-2024 End: 08-04-2024 Patient encounter procedure 08/04/2024 8:45 AM EDT Office Visit [facility] [address] [place] [phone] Cristino Dupree, PA-C [address] [place] [phone] [facility] Start: 07-07-2024 End: 07-07-2024 Patient encounter procedure 07/07/2024 8:15 AM EST Office Visit [facility] [address] [address] [address] [place] [id number] Cristino Dupree, PA-C [address] [place] [phone] [facility] Start: 04-27-2024 End: 04-27-2024 Clinical Support [facility] Start: 02-24-2024 Influenza vaccination Influenza Vacc ine (#1) [facility] Start: 01-25-2024 COVID-19 VACCINE ( season) COVID-19 VACCINE ( season) [facility] Start: 01-25-2024 COVID-19 Vaccine ( season) COVID-19 Vaccine ( season) [facility] Start: 01-25-2024 Influenza vaccination Influenza Vacc ine [facility] Start: 01-14-2024 End: 01-14-2024 Patient encounter procedure 01/14/2024 8:45 AM EDT Office Visit [facility] [address] [place] [id number] Cristino Dupree, PA-C [address] [facility] [address] [place] [address] [facility] Start: 12-29-2023 End: 12-29-2023 Admission to same day surgery center [facility] Comment on above: DENTAL RESTORATIONS Start: 12-29-2023 Subsequent hospital visit by physician [facility] Start: 12-29-2023 End: 12-29-2023 [facility] REST[facility]ATIONS [facility] Start: 12-29-2023 End: 12-29-2023 Patient encounter procedure 12/29/2023 6:30 AM EDT Procedure Visit [facility] [address] [id number] Ayan Hanson, DDS [address] [place] [address] [facility] Start: 12-03-2023 HPV Vaccine (optiona l start 27-45 years) HPV Vaccine (optional start 27-45 years) [facility] Start: 01-24-2023 COVID-19 Vaccine ( season) COVID-19 Vaccine ( season) [facility] Start: 01-24-2023 Influenza vaccination Influenza Vacc ine (#1) [facility] Start: 07-16-2022 DTaP,Tdap and Td Vaccines (7 - Td or Tdap) DTaP,Tdap and Td Vaccines (7 - Td or Tdap) [facility] Start: 07-16-2022 Tetanus vaccination [facility] Start: 12-03-2015 Hepatitis B vaccination HEP B VACCINE (1 of 3 - 19+ 3-dose series) [facility] Start: 12-03-2015 Third diphtheria, tetanus and acellular pertussis (DTaP) vaccination TDAP (ADULT) [facility] Start: 2014 Adult BMI Follow Up Plan Adult BMI Follow Up Plan [facility] Start: 2014 Hepatitis C screening Hepatitis C An tibody [facility] Start: 12-03-2011 HIV screening [facility] Start: 12-03-2011 Vaccination for sammy n papillomavirus HPV Vaccine (1 - Male 3-dose series) [facility] Start: 2008 Depression Screening Depression Scre ening [facility] Start: 12-03-2007 Vaccination for sammy n papillomavirus [facility] Start: 1996 Hepatitis C screening HEPATITI S C VIRUS SCREENING [facility] Start: 1996 Tetanus vaccination TETANUS [facility] 10 F(V) RESIN-BASED COMPOSITE - 1 SURFACE, ANTERIOR 10 F(V) RESIN-BASED COMPOSITE - 1 SURFACE, ANTERIOR Dental Routine 1 Occurrences starting 12/06/2024 [facility] Work Phone: Comment on above: 1 Occurrences starti ng 12/06/2024 COMPREHENSIVE ORAL E REJI - NEW/EST PATIENT COMPREHENSIVE ORAL EVAL - NEW/EST PATIENT Dental Routine 1 Occurrences starting 12/06/2024 [facility] Work Phone: Comment on above: 1 Occurrences dwain antunez 12/06/2024 DENTAL RESTORATIONS DENTAL EUNICE RATIONS Routine scheduled [facility] Work Phone: INTRAORAL - COMPLETE SERIES OF RADIOGRAPHIC IMAGES INTRAORAL - COMPLETE SERIES OF RADIOGRAPHIC IMAGES Dental Routine 1 Occurrences starting 12/06/2024 [facility] Work Phone: Comment on above: 1 Occurrences startrj antunez 12/06/2024 PROPHYLAXIS - ADULT PROPHYLAXIS - ADULT Dental Routine 1 Occurrences starting 12/06/2024 [facility] Work Phone: Comment on above: 1 Occurrences startrj antunez 12/06/2024 Immunizations Immunization Date Immunization Notes Care Provider [facility] 03-11-2024 influenza virus vaccine, unspecified formulation Cristino Dupree PA-C Work Phone: [facility] 03-12-2023 influenza virus vaccine, unspecified formulation Cristino Dupree PA-C Work Phone: [facility] 03-21-2021 influenza, injectabl e, quadrivalent, preservative free [facility] Work Phone: [facility] 03-21-2021 influenza virus vaccine, unspecified formulation Jeana Faustin DDS Other Phone: [facility] Work Phone: 06-27-2020 Pfizer SARS-COV-2 (COVID-19) vaccine, age 12+ yrs, mRNA, spike protein, LNP, preservative free, 30 mcg/0.3mL dose (APY=224) Sade Vela [facility] Work Phone: [facility] 06-06-2020 Pfizer SARS-COV-2 (COVID-19) vaccine, age 12+ yrs, mRNA, spike protein, LNP, preservative free, 30 mcg/0.3mL dose (GTM=898) [facility] Work Phone: [facility] 03-01-2020 influenza, injectabl e, quadrivalent, preservative free Sade [place] [facility] Work Phone: [facility] 03-19-2019 influenza, injectabl e, quadrivalent, preservative free Sade [place] [address] Work Phone: [facility] 03-04-2018 influenza, injectabl e, quadrivalent, preservative free Sade [facility] Work Phone: [facility] 03-19-2017 influenza, injectabl e, quadrivalent, contains preservative Sade [facility] Work Phone: [facility] 02-28-2016 influenza, seasonal, injectable S[facility] Work Phone: [facility] 03-16-2015 influenza, seasonal, injectable Sade Mirian [facility] Work Phone: [facility] 03-31-2014 influenza, seasonal, injectable Sade [place] [facility] Work Phone: [facility] 03-23-2013 influenza, injectabl e, quadrivalent, preservative free Sade [facility] Work Phone: [facility] 02-09-2013 hepatitis A vaccine, pediatric/adolescent dosage, 2 dose schedule Sade Mirian [facility] Work Phone: [facility] 07-30-2012 hepatitis A vaccine, pediatric/adolescent dosage, 2 dose schedule Sade [facility] Work Phone: [facility] 07-16-2012 tetanus toxoid, reduced diphtheria toxoid, and acellular pertussis vaccine, adsorbed [facility] Work Phone: [facility] 03-18-2012 influenza, seasonal, injectable [facility] Work Phone: [facility] 02-06-2011 influenza virus vaccine, whole virus [facility] Work [facility]: [facility] 03-21-2010 influenza, seasonal, injectable Sadegin Vela [facility] Work Phone: [facility] 04-12-2009 novel [id number], preservative-free, injectable Sade Vela [facility] Work Phone: [facility] 06-13-2007 influenza, seasonal, [facility]able [facility] Work Phone[facility] 03-29-2005 influenza, seasonal, injectable Sade Vela [facility] Work Phone: [facility] 05-07-2003 influenza, seasonal, injectable Sadegin Vela [facility] Work Phone: [facility] 01-13-2003 diphtheria and tetan us toxoids, adsorbed for pediatric use Sade Mirian [facility] Work Phone: [facility] 01-13-2003 measles, mumps and rubella virus vaccine Sade Mirian [facility] Work Phone: [facility] 01-13-2003 poliovirus vaccine, inactivated Sadelore Vela [facility] Work Phone: [facility] 07-16-2002 diphtheria, tetanus toxoids and acellular pertussis vaccine, unspecified formulation Sade Mirian [facility] Work Phone: [facility] 01-03-1999 haemophilus influenz ae type b vaccine, PRP-T conjugate Sade [place] [facility] Work Phone: [facility] 06-13-1998 diphtheria, tetanus toxoids and acellular pertussis vaccine, unspecified formulation Sade [place] [facility] Work Phone: [facility] 06-13-1998 poliovirus vaccine, inactivated Sade [place] [facility] Work Phone: [facility] 03-07-1998 measles, mumps and rubella virus vaccine Sade [place] [facility] Work Phone: [facility] 11-30-1997 varicella virus vaccine [facility] Work Phone: [facility] 09-09-1997 haemophilus influenz ae type b vaccine, PRP-T conjugate [facility] Work Phone: [facility] 09-09-1997 hepatitis B vaccine, pediatric or pediatric/adolescent dosage [facility] Work Phone: [facility] 07-06-1997 diphtheria, tetanus toxoids and acellular pertussis vaccine, unspecified formulation [facility] Work Phone: [facility] 05-06-1997 diphtheria, tetanus toxoids and acellular pertussis vaccine, unspecified formulation [facility] Work Phone: [facility] 04-06-1997 haemophilus influenz ae type b vaccine, PRP-T conjugate [facility] Work Phone: [facility] 04-06-1997 poliovirus vaccine, inactivated [facility] Work Phone: [facility] 03-04-1997 diphtheria, tetanus toxoids and acellular pertussis vaccine, unspecified formulation [facility] Work Phone: [facility] 03-04-1997 haemophilus influenz ae type b vaccine, PRP-T conjugate [facility] Work Phone: [facility] 03-04-1997 poliovirus vaccine, inactivated [facility] Work Phone: [facility] 02-02-1997 hepatitis B vaccine, pediatric or pediatric/adolescent dosage Sade Mirian [facility] Work Phone: [facility] 01-03-1997 hepatitis B vaccine, pediatric or pediatric/adolescent dosage [facility] Work Phone: [facility] Payers Date Payer Category Payer Dental --Stand Alone DENTAL-MEDI CAID [id number] 2012 Medicaid [id number] 1996 Unknown [id number] 93 1996 Unknown [id number] 27 1996 Unknown [id number] 32 1996 Unknown [id number] 32 1996 Unknown [id number] 32 1996 Unknown [id number] 32 1996 Unknown [id number] 286 1996 Unknown [id number] 286 1996 Unknown [id number] 286 1996 Unknown [id number] 286 1996 Unknown [id number] 286 1996 Unknown [id number] 286 1996 Unknown [id number] 286 1996 Unknown [id number] 286 1959 Medicaid [id number] Social History Date Type Detail Facility [facility] Start: 1995 Sex Assigned At Not on file [facility] Tobacco smoking status No Smokin g Status Entered [facility] Start: 09-26-2022 End: 12-16-2023 Sex Assigned At Male [facility] Start: 03-07-2022 End: 12-16-2023 Tobacco smoking status WIIS Never smoked tobacco [facility] Start: 03-07-2022 End: 12-16-2023 Tobacco use and exposure Smokeless tobacco non-user [facility] Start: 12-16-2023 End: 12-01-2024 Alcoholic beverage intake Lifetime non-drinker (finding) [facility] Start: 09-26-2022 End: 12-16-2023 History of Social function [facility] Childcare Unknown [facility] Start: 12-27-2014 End: 11-02-2024 Sex Male (finding) [facility] Medical Equipment Procedure Code Equipment Code Equipment Origin al Text Equipment Identifier Dates Plain Straight S yair Ventilation Tube, Fluoroplastic, White [id number] Start: 08-29-2022 Clinical Notes 10-12-2021 to 12-06-2024 Romulo Quarles DDS - 12/06/2024 10:00 AM EDTDental Procedure Details - Romulo Quarles DDS - 12/06/2024 10:00 AM EDTDental Procedure Details - Romulo Quarles DDS - 12/06/2024 10:00 AM EDT Note Date & Type Note Facility 12-06-2024 History of Present illness Narrative Dental Limited Focus Exam Procedure Details D0140 - LIMITED ORAL EVALUATION - PROBLEM FOCUSED Was local anesthetic administered? Shaylee Suggs is a 29 y.o. male, Patient presented to [facility] for routine dental exam. Patient's caregiver brought medical record of the patient which was used to update the history. Images under media tab. Med History: Updated Medication History: Updated No past surgical history on file. Current Outpatient Medications: citric acid-potassium citrate 1100-334 MG/5ML Solution, GIVE 10ML BY MOUTH TWICE A DAY DILUTE IN 1 GLASS OF WATER/LIQUID, Disp: , Rfl: Fluocinolone Acetonide Scalp 0.01 % Oil, APPLY TOPICALLY TO AFFECTED AREAS ON SCALP MON-FRI, OFF ON THE WEEKENDS, THEN REPEAT DERMA-SMOOTHE/FS, Disp: , Rfl: fluticasone 50 MCG/ACT Suspension nasal spray, INSTILL 1 SPRAY INTO EACH NOSTRIL TWICE A DAY FLONASE, Disp: , Rfl: Ketoconazole 2 % Shampoo shampoo, LATHER TO SCALP AND FACE 2-3 TIMES PER WEEK, ALLOW TO SIT FOR 3-5 MINUTES THEN RINSE. NIZORAL, Disp: , Rfl: Levothyroxine 50 MCG tablet, , Disp: , Rfl: Loratadine 10 MG tablet, TAKE ONE TABLET BY MOUTH AT BEDTIME CLARITIN, Disp: , Rfl: mineral oil Oil, APPLY 2 DROPS ONCE WEEKLY TO BILAT EARS. LAY W/ EAR UP 10-15 MIN TOLERATED, ALLOW TO DRAIN OUT. DON'T FLUSH EARS OR USE QTIPS/OTHER OBJE, Disp: , Rfl: Montelukast 10 MG tablet, TAKE ONE TABLET BY MOUTH ONCE DAILY SINGULAIR, Disp: , Rfl: Acetaminophen 325 MG tablet, Take 1 tablet by mouth every 4 hours., Disp: , Rfl: budesonide 0.5 MG/2ML nebulizer suspension, Inhale 2 mL 2 times daily., Disp: , Rfl: guaiFENesin (QC Tussin Expectorant Adult) 100 MG/5ML Liquid, Take 10 mL by mouth every 4 hours as needed for Cold Symptoms., Disp: , Rfl: Allergies Allergen Reactions Codeine History reviewed. No pertinent family history. Social History Socioeconomic History Marital status: Single Spouse name: Not on file Number of children: Not on file Years of education: Not on file Highest education level: Not on file Occupational History Not on file Tobacco Use Smoking status: Not on file Smokeless tobacco: Not on file Substance and Sexual Activity Alcohol use: Not on file Drug use: Not on file Sexual activity: Not on file Other Topics Concern Not on file Social History Narrative Not on file Social Drivers of Health Financial Resource Strain: Not on file Food Insecurity: Not on file Transportation Needs: Not on file Physical Activity: Not on file Stress: Not on file Social Connections: Not on file Personal Safety: Not on file Housing Stability: Not on file ASA: 3 Mallampati: 3-4 ASSESSMENT: Extra-oral: The patient was awake, alert and oriented for exam. The lips are moist with a clear vermilion border and are without lesions. No extraoral signs or symptoms of odontogenic infection present at time of exam. Patient had facial asymmetry and an anterior open bite. Intra-oral: Overall the teeth are in fair condition. No soft tissue lesions or swellings were noted at time of exam. Adequate salivary flow. Oral hygiene is poor. The gingiva appears erythematous and inflamed. No abscess, broken fillings, or gross caries noted. No intraoral swellings, signs of infection, or trismus present at time of clinical exam. #7 had moderate cervical decay and #9 had uncomplicated crown fracture. We tried taking a Panoramic X-ray but patient could not handle it. A quick intra-oral exam was done to check for any gross decay or abscess. Radiographic Exam: Patient could not tolerate X-rays. Tx completed: Limited Exam Plan: Comprehensive exam in the OR Comprehensive Exam Full Mouth X-rays Prophylaxis F composite #7 Decide Tx Plan for #9 After X-rays Make final tx plan after comprehensive exam PROC: Updated odontogram. Discussed the next steps with the caregiver Liliane and the patient. The caregiver was give the OR Packet and was asked to send it back after getting it signed by the legal guardian. Next visit: Comprehensive exam and X-rays in OR. RY Silveira Dr. General Dentist documented in this encounter [facility] Work Phone: 12-06-2024 Miscellaneous Notes Was local anesthetic administered? No documented in this encounter [facility] Work Phone: 12-06-2024 large animal veterinarian procedure note Was local anesthetic administered? No [facility] Work Phone: 12-01-2024 History of Present illness Narrative [facility] [address] [place] [address] SUBJECTIVE: Patient ID (1995): Shayan Suggs is a 28 y.o. male presents today for Chief Complaint Patient presents with otomycosis HPI: Shayan is seen In follow-up on chronic bilateral otorrhea. He is present with his caregiver today. He was last seen on 11/04/2024. Clotrimazole and Ciprodex drops were administered as advised. Patient denies pain. There are no current concerns for hearing. HISTORY: Past Medical History: Diagnosis Date Asthma Autism Chronic periodontal disease Craniostenosis Disease of thyroid gland Dysphagia Eczema Hypermetropia of both eyes Hypothyroidism Intellectual disability Kidney stone Seizures (CMS-HCC) Sinusitis, chronic Strabismus Past Surgical History: Procedure Laterality Date BRAIN SURGERY MYRINGOTOMY WITH TUBE Bilateral 08/29/2022 Performed by Jan Baer MD PhD at [facility] Family History Problem Relation Age of Onset No Known Problems Mother No Known Problems Father Social History Socioeconomic History Marital status: Single Spouse name: Not on file Number of children: Not on file Years of education: Not on file Highest education level: Not on file Occupational History Not on file Tobacco Use Smoking status: Never Smokeless tobacco: Never Vaping Use Vaping status: Never Used Substance and Sexual Activity Alcohol use: Never Drug use: Never Sexual activity: Defer Other Topics Concern Not on file Social History Narrative Not on file Social Drivers of Health Financial Resource Strain: Not on file Food Insecurity: No Food Insecurity (09/26/2022) Hunger Screening Food Insecurity - Worry: Never True Food Insecurity - Inability: Never True Transportation Needs: Not on file Physical Activity: Not on file Stress: Not on file Social Connections: Not on file Interpersonal Safety: Not on file Housing Instability: Not on file Allergies Allergen Reactions Codeine Current Outpatient Medications Medication Sig Dispense Refill budesonide (PULMICORT) 0.5 mg/2 mL nebulizer solution Inhale 2 mL (0.5 mg total) by nebulization in the morning. clotrimazole (LOTRIMIN) 1 % external solution Administer 2 drops in both ears twice daily for 7 days, in combination with Ciprodex 30 mL 0 clotrimazole-betamethasone (LOTRISONE) cream Applied to external ear canal once at bedtime every other night. 30 g 3 fluticasone propionate (FLONASE) 50 mcg/actuation nasal spray Administer 1 spray into each nostril in the morning and 1 spray before bedtime. guaiFENesin (ROBITUSSIN) 100 mg/5 mL syrup Take 10 mL (200 mg total) by mouth as needed in the morning and 10 mL (200 mg total) as needed at noon and 10 mL (200 mg total) as needed in the evening for cough. levothyroxine (SYNTHROID, LEVOTHROID) 50 MCG tablet Take 1 tablet (50 mcg total) by mouth in the morning. loratadine (CLARITIN) 10 mg tablet Take 1 tablet (10 mg total) by mouth nightly. montelukast (SINGULAIR) 10 mg tablet Take 1 tablet (10 mg total) by mouth in the morning. potassium citrate-citric acid (POLYCITRA) 1,100-334 mg/5 mL solution No current facility-administered medications for this visit. REVIEW OF SYSTEMS: Review of Systems Constitutional: Negative for chills and fever. HENT: Negative for congestion and ear pain. Respiratory: Negative for cough and shortness of breath. Neurological: Negative for dizziness and headaches. Data Reviewed: PHYSICAL EXAMINATION: Temp 37.1 C (98.8 F) Ht 162.6 cm (5' 4.02 ) Wt 73.9 kg (163 lb) BMI 27.96 kg/m Constitutional: Healthy, alert, cooperative, and in no distress and normal ablility to communicate . Voice normal quality. Head/Face: Normocephalic, without obvious abnormality, salivary glands normal, atraumatic, sinuses nontender, and facial nerve intact Eyes: No gross abnormalities., EOMI, no nystagmus, and no lid ptosis Ear: RIGHT: hearing normal, external ear normal, canal abnormal due to Otorrhea, and See procedure note. LEFT: hearing normal, external ear normal, canal abnormal due to otorrhea, and See procedure note. Nose: External nose appears normal Oral: normal lips Respiration: No stridor, Normal respiratory effort. Neurologic: Grossly normal Microscopic Evaluation of the Ear(s): Pre Op Diagnosis: bilateral otorrhea Post Op Diagnosis: Same Procedure: Microscopic evaluation of Clinician: Cristino Dupree PA-C Complications: none Procedure note: Patient was placed in a seated/supine position. Left: Scant, wet, yellow otorrhea, removed with suction, underlying EAC is mildly erythematous and macerated. PE tube in place and patent. Chloromycetin and boric/acid was insufflated. Right: Scant, wet, yellow otorrhea removed with suction, underlying EAC mildly erythematous and macerated. PE tube in place and patent. Chloromycetin and boric/acid was insufflated. Procedure was successful and and tolerated well.. Post operative instructions were given. ASSESSMENT/PLAN: Shayan was seen today for otomycosis. Diagnoses and all orders for this visit: Otomycosis Otorrhea of both ears Dysfunction of both eustachian tubes Plan: Shayan Suggs in follow-up for bilateral otorrhea. Scant drainage noted in both ears today, debridement completed. PE tubes in place and open. Canals treated with boric acid powder. Reiterated dry ear precautions as outlined in patient's AVS. Continue use of Lotrimin drops 4 drops, twice daily for 5 days. Return for follow-up in 2-3 months or sooner with concerns. Provider Statement: I CRISTINO DUPREE PA-C personally performed the services described in the documentation as described by the above named scribe in my presence. It is both accurate and complete at the time of final signature. RADHA Vaughn 12/01/2024 2:39 PM Counseling: The following elements of medical decision making were considered during this visit: Reviewed and summarized previous records. The patient was counseled regarding prognosis, risks and benefits of treatment options, impressions, importance of compliance with treatment and risk factor reductions. The patient verbalized understanding and agreement to the plan. Please note that parts of this chart were generated using voice recognition M*Modal dictation software. Although every effort was made to ensure the accuracy of this automated staff field engineer, some errors in staff field engineer may have occurred. Cristino Dupree PA-C 12/01/24 1440 documented in this encounter [facility] 12-01-2024 Instructions Cristino Dupree PA-C - 12/01/2024 2:15 PM EDT DRY EAR PRECAUTIONS 1. Avoid swimming or submerging your ears under water. 2. When showering/bathing: a. Place a cotton ball dipped in Vaseline in the outer ear canal to create a seal or wear an ear plug b. Face affected ear away from the water c. Dispose of cotton ball after every use d. Should water enter the ear canal, run a hairdryer gently around your outer ear for several seconds after the shower. 3. Continue with use of Lotrimin drops, instill 4 drops in each ear twice daily for 5 days. Avoid use of any ear drops unless otherwise prescribed by your provider. 4. For additional concerns, consult with your ENT provider. documented in this encounter [facility] 11-04-2024 Miscellaneous Notes Rebecca from the Facility where patient stays called to find out if they should hold off on using mineral oil on his ears until after is 7 days of treatment. The phone number provided is the nurses station and answer can be given to any one of them. Rebecca [phone] Spoke with Rebecca and informed her to hold off on using the mineral oil until he has finished his 7 days of drops. documented in this encounter [facility] 11-04-2024 Telephone encounter Note Rebecca from the Facility where patient stays called to find out if they should hold off on using mineral oil on his ears until after is 7 days of treatment. The phone number provided is the nurses station and answer can be given to any one of them. Rebecca [phone] [facility] 11-04-2024 Telephone encounter Note Spoke with Rebecca and informed her to hold off on using the mineral oil until he has finished his 7 days of drops. [facility] 11-03-2024 History of Present illness Narrative [facility] [address] [place] [address] [place] [id number] SUBJECTIVE: Patient ID (1995): Shayan Suggs is a 28 y.o. male presents today for Chief Complaint Patient presents with Ear Drainage HPI: Shayan is seen is seen today for bilateral ear drainage. He is accompanied by his caregiver. Exact onset is unknown. He has a history of bilateral otomycosis, otitis media, ETD and previous PE tube placement. He was last seen on 08/04/2024, at that time bilateral PE tubes were in place and open. Ear pain is denied. No other ENT related concerns, he is here for evaluation. HISTORY: Past Medical History: Diagnosis Date Asthma Autism Chronic periodontal disease Craniostenosis Disease of thyroid gland Dysphagia Eczema Hypermetropia of both eyes Hypothyroidism Intellectual disability Kidney stone Seizures ([facility]) Sinusitis, chronic Strabismus Past Surgical History: Procedure Laterality Date BRAIN SURGERY MYRINGOTOMY WITH TUBE Bilateral 08/29/2022 Performed by Jan Baer MD PhD at [facility] Family History Problem Relation Age of Onset No Known Problems Mother No Known Problems Father Social History Socioeconomic History Marital status: Single Spouse name: Not on file Number of children: Not on file Years of education: Not on file Highest education level: Not on file Occupational History Not on file Tobacco Use Smoking status: Never Smokeless tobacco: Never Vaping Use Vaping status: Never Used Substance and Sexual Activity Alcohol use: Never Drug use: Never Sexual activity: Defer Other Topics Concern Not on file Social History Narrative Not on file Social Drivers of Health Financial Resource Strain: Not on file Food Insecurity: No Food Insecurity (09/26/2022) Hunger Screening Food Insecurity - Worry: Never True Food Insecurity - Inability: Never True Transportation Needs: Not on file Physical Activity: Not on file Stress: Not on file Social Connections: Not on file Interpersonal Safety: Not on file Housing Instability: Not on file Allergies Allergen Reactions Codeine Current Outpatient Medications Medication Sig Dispense Refill budesonide (PULMICORT) 0.5 mg/2 mL nebulizer solution Inhale 2 mL (0.5 mg total) by nebulization in the morning. clotrimazole-betamethasone (LOTRISONE) cream Applied to external ear canal once at bedtime every other night. 30 g 3 fluticasone propionate (FLONASE) 50 mcg/actuation nasal spray Administer 1 spray into each nostril in the morning and 1 spray before bedtime. guaiFENesin (ROBITUSSIN) 100 mg/5 mL syrup Take 10 mL (200 mg total) by mouth as needed in the morning and 10 mL (200 mg total) as needed at noon and 10 mL (200 mg total) as needed in the evening for cough. levothyroxine (SYNTHROID, LEVOTHROID) 50 MCG tablet Take 1 tablet (50 mcg total) by mouth in the morning. loratadine (CLARITIN) 10 mg tablet Take 1 tablet (10 mg total) by mouth nightly. montelukast (SINGULAIR) 10 mg tablet Take 1 tablet (10 mg total) by mouth in the morning. potassium citrate-citric acid (POLYCITRA) 1,100-334 mg/5 mL solution ciprofloxacin-dexAMETHasone (CIPRODEX) otic suspension Administer 2 drops in both ears twice daily for 7 days, in combination with Lotrimin 7.5 mL 0 clotrimazole (LOTRIMIN) 1 % external solution Administer 2 drops in both ears twice daily for 7 days, in combination with Ciprodex 30 mL 0 No current facility-administered medications for this visit. REVIEW OF SYSTEMS: Review of Systems Constitutional: Negative for fever. HENT: Positive for ear discharge. Negative for ear pain. Eyes: Negative for redness. Respiratory: Negative for cough. Gastrointestinal: Negative for vomiting. Skin: Negative for rash. Data Reviewed: PHYSICAL EXAMINATION: Ht 162.6 cm (5' 4 ) Wt 76.2 kg (168 lb) BMI 28.84 kg/m Constitutional: Healthy, alert, cooperative, and in no distress and normal ablility to communicate . Voice normal quality. Head/Face: Normocephalic, without obvious abnormality, salivary glands normal, atraumatic, sinuses nontender, and facial nerve intact Eyes: No gross abnormalities., EOMI, no nystagmus, and no lid ptosis Ear: RIGHT: hearing normal, external ear normal, canal abnormal due to occluding wet caseous debris, and See procedure note. LEFT: hearing normal, external ear normal, canal abnormal due to occluding, wet caseous debris, and See procedure note. Nose: External nose appears normal Oral: normal teeth, normal lips, normal gums, normal hard palate, normal anterior tongue, and oral mucosa moist Oropharynx: normal-appearing mucosa, no pharyngitis, no exudate, and normal soft palate and uvula Respiration: No stridor, Normal respiratory effort. Neurologic: Grossly normal Alert Oriented X 3 Affect normal Cranial nerves 2 -12 grossly intact Microscopic Evaluation of the Ear(s): Pre Op Diagnosis: Bilateral otorrhea, otomycosis Post Op Diagnosis: Same Procedure: Microscopic evaluation of Clinician: Cristino Dupree PA-C Anesthesia: None Complications: none Procedure note: Patient was placed in a seated/supine position. Right ear: Wet, occluding caseous debris, removed with suction. EAC is macerated and slightly erythematous. PE tube in place in the TM appears patent. Chloramphenicol and Sulfanilamide powder was insufflated. Left ear: Wet, occluding caseous debris, removed with suction. EAC is macerated. PE tube is in the TM, appears patent. Chloramphenicol and Sulfanilamide powder was insufflated. Procedure was successful and and tolerated well.. Post operative instructions were given. ASSESSMENT/PLAN: Shayan was seen today for ear drainage. Diagnoses and all orders for this visit: Otomycosis - clotrimazole (LOTRIMIN) 1 % external solution; Administer 2 drops in both ears twice daily for 7 days, in combination with Ciprodex - ciprofloxacin-dexAMETHasone (CIPRODEX) otic suspension; Administer 2 drops in both ears twice daily for 7 days, in combination with Lotrimin Dysfunction of both eustachian tubes Otorrhea of both ears - clotrimazole (LOTRIMIN) 1 % external solution; Administer 2 drops in both ears twice daily for 7 days, in combination with Ciprodex - ciprofloxacin-dexAMETHasone (CIPRODEX) otic suspension; Administer 2 drops in both ears twice daily for 7 days, in combination with Lotrimin Plan: Shayan Suggs was seen and evaluated. On exam there was occluding wet, caseous debris consistent with underlying otomycosis. The canals were debrided with suction. TMs were visualized, patent PE tubes bilaterally. Chloramphenicol and Sulfanilamide powder was insufflated bilaterally. Wet ear precautions was discussed with caregiver, as outlined in AVS. Ordered Ciprodex and Lotrimin solution to be used in bilateral ears 2 drops each, twice daily for 7 days. Return for evaluation in 3-4 weeks. All questions and concerns were addressed. Provider Statement: I CRISTINO DUPREE PA-C personally performed the services described in the documentation as described by the above named scribe in my presence. It is both accurate and complete at the time of final signature. Cristino Dupree PA-C Counseling: The following elements of medical decision making were considered during this visit: Reviewed and summarized previous records. The patient was counseled regarding prognosis, risks and benefits of treatment options, impressions, importance of compliance with treatment and risk factor reductions. The patient verbalized understanding and agreement to the plan. Please note that parts of this chart were generated using voice recognition M*[employer] dictation software. Although every effort was made to ensure the accuracy of this automated staff field engineer, some errors in staff field engineer may have occurred. Cristnio Dupree PA-C 11/03/24 1450 documented in this encounter [facility] [employer] 11-03-2024 Instructions Cristino Dupree PA-C - 11/03/2024 2:15 PM EDT DRY EAR PRECAUTIONS 1. Avoid swimming or submerging your ears under water. 2. When showering/bathing: a. Place a cotton ball dipped in Vaseline in the outer ear canal to create a seal or wear an ear plug b. Face affected ear away from the water c. Dispose of cotton ball after every use d. Should water enter the ear canal, run a hairdryer gently around your outer ear for several seconds after the shower. 3. Avoid use of any ear drops unless otherwise prescribed by your provider. 4. For additional concerns, consult with your ENT provider. documented in this encounter [email or web address] History of Present illness Narrative [facility] [address] [facility] [id number] SUBJECTIVE: Patient ID (1995): Shayan Suggs is a 28 y.o. male presents today for Chief Complaint Patient presents with Ear Problem HPI: Shayan is seen In follow-up for an ear evaluation and possible cleaning. He is present with his caregiver Kourtney. He was last seen on 05/03/2024. He has a history of otomycosis, otitis media, ETD and previous PE tube placement. There are no current complaints of otologic symptoms such as otalgia and otorrhea. There were no concerns for hearing. He is here for evaluation. HISTORY: Past Medical History: Diagnosis Date Asthma Autism Chronic periodontal disease Craniostenosis Disease of thyroid gland Dysphagia Eczema Hypermetropia of both eyes Hypothyroidism Intellectual disability Kidney stone Seizures ([facility]) Sinusitis, chronic Strabismus Past Surgical History: Procedure Laterality Date BRAIN SURGERY MYRINGOTOMY WITH TUBE Bilateral 08/29/2022 Performed by Jan Baer MD PhD at [facility] Family History Problem Relation Age of Onset No Known Problems Mother No Known Problems Father Social History Socioeconomic History Marital status: Single Spouse name: Not on file Number of children: Not on file Years of education: Not on file Highest education level: Not on file Occupational History Not on file Tobacco Use Smoking status: Never Smokeless tobacco: Never Vaping Use Vaping status: Never Used Substance and Sexual Activity Alcohol use: Never Drug use: Never Sexual activity: Defer Other Topics Concern Not on file Social History Narrative Not on file Social Drivers of Health Financial Resource Strain: Not on file Food Insecurity: No Food Insecurity (09/26/2022) Hunger Screening Food Insecurity - Worry: Never True Food Insecurity - Inability: Never True Transportation Needs: Not on file Physical Activity: Not on file Stress: Not on file Social Connections: Not on file Interpersonal Safety: Not on file Housing Instability: Not on file Allergies Allergen Reactions Codeine Current Outpatient Medications Medication Sig Dispense Refill budesonide (PULMICORT) 0.5 mg/2 mL nebulizer solution Inhale 2 mL (0.5 mg total) by nebulization once daily. clotrimazole-betamethasone (LOTRISONE) cream Applied to external ear canal once at bedtime every other night. 30 g 3 fluticasone propionate (FLONASE) 50 mcg/actuation nasal spray Administer 1 spray into each nostril in the morning and 1 spray before bedtime. guaiFENesin (ROBITUSSIN) 100 mg/5 mL syrup Take 10 mL (200 mg total) by mouth 3 (three) times a day as needed for cough. levothyroxine (SYNTHROID, LEVOTHROID) 50 MCG tablet Take 1 tablet (50 mcg total) by mouth in the morning. loratadine (CLARITIN) 10 mg tablet Take 1 tablet (10 mg total) by mouth nightly. montelukast (SINGULAIR) 10 mg tablet Take 1 tablet (10 mg total) by mouth in the morning. potassium citrate-citric acid (POLYCITRA) 1,100-334 mg/5 mL solution GIVE 10ML BY MOUTH TWICE A DAY DILUTE IN 1 GLASS OF WATERLIQUID No current facility-administered medications for this visit. REVIEW OF SYSTEMS: Review of Systems Constitutional: Negative for fever. HENT: Negative for ear discharge and ear pain. Eyes: Negative for redness. Respiratory: Negative for cough. Gastrointestinal: Negative for vomiting. Skin: Negative for rash. Data Reviewed: PHYSICAL EXAMINATION: Ht 162.6 cm (5' 4 ) Wt 76.2 kg (168 lb) BMI 28.84 kg/m Constitutional: Healthy, alert, cooperative, and in no distress and normal ablility to communicate . Voice normal quality. Head/Face: Normocephalic, without obvious abnormality, salivary glands normal, atraumatic, sinuses nontender, and facial nerve intact Eyes: No gross abnormalities., EOMI, no nystagmus, and no lid ptosis Ear: RIGHT: hearing normal, external ear normal, canal abnormal due to Occluding wet cerumen debris, and See procedure note. LEFT: hearing normal, external ear normal, canal abnormal due to occluding wet cerumen debris, and See procedure note. Nose: External nose appears normal Oral: normal lips Heart: Regular rate Respiration: No stridor, Normal respiratory effort. Neurologic: Grossly normal CERUMEN REMOVAL PROCEDURE NOTE Shayan Suggs was taken to the procedure room and placed in the supine position. Using binocular microscopy, speculum, visualization of the right external canal showed obstructing cerumen. The cerumen was removed with suction. Once the ear canal was cleaned, the tympanic membrane was visualized. Findings: EAC normal, straight shank PE tube in place, open and dry. Using binocular microscopy, speculum, visualization of the left external canal showed obstructing cerumen. The cerumen was removed with suction. Once the ear canal was cleaned, the tympanic membrane was visualized. Findings: EAC normal, straight shank PE tube in place, open and dry. Procedure was successful and and tolerated well. ASSESSMENT/PLAN: Shayan was seen today for ear problem. Diagnoses and all orders for this visit: Cerumen debris on tympanic membrane of both ears Dysfunction of both eustachian tubes Plan: Shayan Suggs underwent a bilateral cerumen removal procedure today. Underlying exam was normal. The findings were discussed with the patient. He is to follow up in 3 months for further cerumen removal if needed. Advised to use a few drops of oil, such as baby, coconut or mineral once a week or 2 times monthly in the ear canals for moisture and to facilitate removal of ear wax. Lay with the ear up for 10-15 minutes, then allow it to drain out. Refrain from using Q-tips or other objects to remove oil or wax, as this may pack the wax in further. All questions and concerns were addressed. Provider Statement: I CRISTINO DUPREE PA-C personally performed the services described in the documentation as described by the above named scribe in my presence. It is both accurate and complete at the time of final signature. Cristino Dupree PA-C Counseling: The following elements of medical decision making were considered during this visit: Reviewed and summarized previous records. The patient was counseled regarding prognosis, risks and benefits of treatment options, impressions, importance of compliance with treatment and risk factor reductions. The patient verbalized understanding and agreement to the plan. Please note that parts of this chart were generated using voice recognition [employer] dictation software. Although every effort was made to ensure the accuracy of this automated staff field engineer, some errors in staff field engineer may have occurred. Cristino Dupree PA-C 08/04/24 0926 documented in this encounter [facility] 04-27-2024 History of Present illness Narrative [facility] [address] [place] [phone] SUBJECTIVE: Patient ID (1995): Shayan Suggs is a 28 y.o. male presents today for Chief Complaint Patient presents with Follow-up 3 week check HPI: Shayan is seen in follow-up on bilateral otitis externa and media. He is accompanied by his caregiver Kourtney. He was last seen on 04/07/2024. Ciprodex and Augmentin were completed as advised. Otalgia and otorrhea are denied. There are no current concerns for hearing. He is here for evaluation. HISTORY: Past Medical History: Diagnosis Date Asthma Autism Chronic periodontal disease Craniostenosis Disease of thyroid gland Dysphagia Eczema Hypermetropia of both eyes Hypothyroidism Intellectual disability Kidney stone Seizures ([facility]-HCC) Sinusitis, chronic Strabismus Past Surgical History: Procedure Laterality Date BRAIN SURGERY MYRINGOTOMY WITH TUBE Bilateral 08/29/2022 Performed by Jan Baer MD PhD at [facility] Family History Problem Relation Age of Onset No Known Problems Mother No Known Problems Father Social History Socioeconomic History Marital status: Single Spouse name: Not on file Number of children: Not on file Years of education: Not on file Highest education level: Not on file Occupational History Not on file Tobacco Use Smoking status: Never Smokeless tobacco: Never Vaping Use Vaping status: Never Used Substance and Sexual Activity Alcohol use: Never Drug use: Never Sexual activity: Defer Other Topics Concern Not on file Social History Narrative Not on file Social Drivers of Health Financial Resource Strain: Not on file Food Insecurity: No Food Insecurity (09/26/2022) Hunger Screening Food Insecurity - Worry: Never True Food Insecurity - Inability: Never True Transportation Needs: Not on file Physical Activity: Not on file Stress: Not on file Social Connections: Not on file Interpersonal Safety: Not on file Housing Instability: Not on file Allergies Allergen Reactions Codeine Current Outpatient Medications Medication Sig Dispense Refill budesonide (PULMICORT) 0.5 mg/2 mL nebulizer solution Inhale 2 mL (0.5 mg total) by nebulization once daily. clotrimazole-betamethasone (LOTRISONE) cream Applied to external ear canal once at bedtime every other night. 30 g 3 fluticasone propionate (FLONASE) 50 mcg/actuation nasal spray Administer 1 spray into each nostril in the morning and 1 spray before bedtime. guaiFENesin (ROBITUSSIN) 100 mg/5 mL syrup Take 10 mL (200 mg total) by mouth 3 (three) times a day as needed for cough. levothyroxine (SYNTHROID, LEVOTHROID) 50 MCG tablet Take 1 tablet (50 mcg total) by mouth in the morning. loratadine (CLARITIN) 10 mg tablet Take 1 tablet (10 mg total) by mouth nightly. montelukast (SINGULAIR) 10 mg tablet Take 1 tablet (10 mg total) by mouth in the morning. potassium citrate-citric acid (POLYCITRA) 1,100-334 mg/5 mL solution GIVE 10ML BY MOUTH TWICE A DAY DILUTE IN 1 GLASS OF WATERLIQUID No current facility-administered medications for this visit. REVIEW OF SYSTEMS: Review of Systems Constitutional: Negative for chills and fever. HENT: Negative for ear discharge (wax), ear pain, hearing loss and tinnitus. Eyes: Positive for visual disturbance. Negative for discharge. Respiratory: Negative for cough and shortness of breath. Cardiovascular: Negative for chest pain and leg swelling. Gastrointestinal: Negative for nausea and vomiting. Endocrine: Negative for cold intolerance and heat intolerance. Genitourinary: Negative for difficulty urinating. Musculoskeletal: Negative for gait problem. Skin: Negative for color change. Allergic/Immunologic: Negative for environmental allergies and food allergies. Neurological: Negative for dizziness, light-headedness and headaches. Hematological: Does not bruise/bleed easily. Psychiatric/Behavioral: Negative for confusion. Data Reviewed: PHYSICAL EXAMINATION: Temp 36.9 C (98.4 F) (Temporal) Wt 76.3 kg (168 lb 3.2 oz) BMI 28.87 kg/m Constitutional: Healthy, alert, cooperative, and in no distress and normal ablility to communicate . Voice normal quality. Head/Face: Normocephalic, without obvious abnormality, salivary glands normal, atraumatic, sinuses nontender, and facial nerve intact Eyes: No gross abnormalities., EOMI, no nystagmus, and no lid ptosis Ear: RIGHT: hearing normal, external ear normal, canal normal, Ear tube in, open, and dry, and tympanosclerosis LEFT: hearing normal, external ear normal, canal normal, and Ear tube in, open, and dry Nose: External nose appears normal Oral: normal lips Respiration: No stridor, Normal respiratory effort. Neurologic: Grossly normal ASSESSMENT/PLAN: Shayan was seen today for follow-up. Diagnoses and all orders for this visit: Other infective acute otitis externa of both ears Acute mucoid otitis media of right ear (Resolved) Plan: Patient was seen and evaluated. Otitis externa and media have resolved with treatment. Bilateral tubes are in place and appear patent, there was no obstruction visualized. Continue with dry ear precautions Discontinue Lotrimin 3. Return for follow-up in 3-6 months for evaluation and cleaning if needed. All questions were addressed Provider Statement: I CRISTINO DUPREE PA-C personally performed the services described in the documentation as described by the above named scribe in my presence. It is both accurate and complete at the time of final signature. Cristino Dupree PA-C 04/27/2024 2:33 PM Counseling: The following elements of medical decision making were considered during this visit: Reviewed and summarized previous records. The patient was counseled regarding prognosis, risks and benefits of treatment options, impressions, importance of compliance with treatment and risk factor reductions. The patient verbalized understanding and agreement to the plan. Please note that parts of this chart were generated using voice recognition [employer] dictation software. Although every effort was made to ensure the accuracy of this automated staff field engineer, some errors in staff field engineer may have occurred. Cristino Dupree PA-C 04/27/24 1444 documented in this encounter [facility] 04-27-2024 History of Present illness Narrative TYMPANOMETRY EVALUATION Reason for visit: CC: A tympanometry assessment was completed today per Cristino Dupree PA-C. Patient has a history of PETs in both ears. There are no current otologic or hearing concerns. RESULTS: Otoscopic Evaluation: Right Ear: PE tube visualized Left Ear: PE tube visualized Immittance Measures: Right Ear: Type B, normal ECV, consistent with blocked/clogged PET Left Ear: Type B, normal ECV, consistent with blocked/clogged PET RECOMMENDATIONS: Follow up with Cristino Dupree PA-C Re-test per otologic management Lizzeth Fitzpatrick, CCC-A Field Control Inspector documented in this encounter [facility] 04-07-2024 History of Present illness Narrative [facility] [address] [place] [phone] SUBJECTIVE: Patient ID (1995): Shayan Suggs is a 28 y.o. male presents today for Chief Complaint Patient presents with Ear Drainage HPI: Shayan is seen today with concerns for an ear infection. He is present with his caregiver, Kourtney. She reports that staff noted white, milky drainage bilaterally when applying Lotrimin cream. During application to the right ear it is also reported that patient has been wincing and complaining of pain. He was last seen on 01/14/2024 in follow-up after being treated for an acute infection of the right ear. At that time bilateral PETs were in place and open. HISTORY: Past Medical History: Diagnosis Date Asthma Autism Chronic periodontal disease Craniostenosis Disease of thyroid gland Dysphagia Eczema Hypermetropia of both eyes Hypothyroidism Intellectual disability Kidney stone Seizures (CMS-HCC) Sinusitis, chronic Strabismus Past Surgical History: Procedure Laterality Date BRAIN SURGERY MYRINGOTOMY WITH TUBE Bilateral 08/29/2022 Performed by Jan Baer MD PhD at [facility] Family History Problem Relation Age of Onset No Known Problems Mother No Known Problems Father Social History Socioeconomic History Marital status: Single Spouse name: Not on file Number of children: Not on file Years of education: Not on file Highest education level: Not on file Occupational History Not on file Tobacco Use Smoking status: Never Smokeless tobacco: Never Vaping Use Vaping status: Never Used Substance and Sexual Activity Alcohol use: Never Drug use: Never Sexual activity: Defer Other Topics Concern Not on file Social History Narrative Not on file Social Drivers of Health Financial Resource Strain: Not on file Food Insecurity: No Food Insecurity (09/26/2022) Hunger Screening Food Insecurity - Worry: Never True Food Insecurity - Inability: Never True Transportation Needs: Not on file Physical Activity: Not on file Stress: Not on file Social Connections: Not on file Interpersonal Safety: Not on file Housing Instability: Not on file Allergies Allergen Reactions Codeine Current Outpatient Medications Medication Sig Dispense Refill budesonide (PULMICORT) 0.5 mg/2 mL nebulizer solution Inhale 2 mL (0.5 mg total) by nebulization once daily. clotrimazole-betamethasone (LOTRISONE) cream Applied to external ear canal once at bedtime every other night. 30 g 3 fluticasone propionate (FLONASE) 50 mcg/actuation nasal spray Administer 1 spray into each nostril in the morning and 1 spray before bedtime. guaiFENesin (ROBITUSSIN) 100 mg/5 mL syrup Take 10 mL (200 mg total) by mouth 3 (three) times a day as needed for cough. levothyroxine (SYNTHROID, LEVOTHROID) 50 MCG tablet Take 1 tablet (50 mcg total) by mouth in the morning. loratadine (CLARITIN) 10 mg tablet Take 1 tablet (10 mg total) by mouth nightly. montelukast (SINGULAIR) 10 mg tablet Take 1 tablet (10 mg total) by mouth in the morning. potassium citrate-citric acid (POLYCITRA) 1,100-334 mg/5 mL solution GIVE 10ML BY MOUTH TWICE A DAY DILUTE IN 1 GLASS OF WATERLIQUID amoxicillin-pot clavulanate (AUGMENTIN) 875-125 mg per tablet Take 1 tablet by mouth every 12 (twelve) hours for 10 days. 20 tablet 0 ciprofloxacin-dexAMETHasone (CIPRODEX) otic suspension Administer 4 drops into both ears in the morning and 4 drops before bedtime. Do all this for 7 days. 7.5 mL 0 No current facility-administered medications for this visit. REVIEW OF SYSTEMS: Review of Systems Constitutional: Negative for chills and fever. HENT: Positive for ear pain. Negative for ear discharge. Eyes: Negative for redness. Respiratory: Negative for cough. Gastrointestinal: Negative for vomiting. Skin: Negative for rash. Data Reviewed: PHYSICAL EXAMINATION: Ht 162.6 cm (5' 4 ) Wt 75.3 kg (166 lb) BMI 28.49 kg/m Constitutional: Healthy, alert, cooperative, and in no distress and normal ablility to communicate . Voice normal quality. Head/Face: Normocephalic, without obvious abnormality, salivary glands normal, atraumatic, sinuses nontender, and facial nerve intact Eyes: No gross abnormalities., EOMI, no nystagmus, and no lid ptosis Ear: RIGHT: hearing normal, external ear normal, canal abnormal due to occluding cerumen debris, and See procedure note. LEFT: hearing normal, external ear normal, canal abnormal due to non occluding wet, yellow otorrhea mixed with cerumen, and See procedure note. Nose: External nose appears normal Oral: normal lips, normal gums, normal hard palate, normal anterior tongue, oral mucosa moist, and poor dentition Oropharynx: normal-appearing mucosa, no pharyngitis, no exudate, and normal soft palate and uvula Neck:normal, supple, no adenopathy, thyroid normal in size, no nodules or tenderness, and no neck masses palpable Heart: Regular rate Respiration: No stridor, Normal respiratory effort. Neurologic: Grossly normal Alert Oriented X 3 Affect normal Cranial nerves 2 -12 grossly intact Microscopic Evaluation of the Ear(s): Pre Op Diagnosis: Bilateral cerumen Post Op Diagnosis: Same Procedure: Microscopic evaluation of Clinician: Cristino Dupree PA-C Anesthesia: None Complications: none Procedure note: Patient was placed in a seated/supine position. Right ear: Occluding cerumen debris removed with suction as suction was advanced and superficial layer of cerumen was removed dried blood, erythema and maceration of the canal was noted superiorly. PE tube was visualized in the TM but occluded with debris that was unable to be removed by suction. TM appears thickened and opaque with mucoid middle ear effusion. Left ear: Non occluding wet yellow otorrhea mixed with cerumen removed with suction. EAC is mildly erythematous. PE tube is in place and open. Procedure was partially successful and and tolerated well.. Post operative instructions were given. ASSESSMENT/PLAN: Shayan was seen today for ear drainage. Diagnoses and all orders for this visit: Acute mucoid otitis media of right ear - ciprofloxacin-dexAMETHasone (CIPRODEX) otic suspension; Administer 4 drops into both ears in the morning and 4 drops before bedtime. Do all this for 7 days. - amoxicillin-pot clavulanate (AUGMENTIN) 875-125 mg per tablet; Take 1 tablet by mouth every 12 (twelve) hours for 10 days. Dysfunction of both eustachian tubes Cerumen debris on tympanic membrane of both ears Other infective acute otitis externa of both ears Plan: Patient was seen and evaluated. Patient was found to have right otitis externa and occlusion of PE tube and mucoid middle ear effusion. Left otitis externa was also appreciated. The following treatments and recommendations were advised: D/C Lotrimin cream for the time being. Ordered Ciprodex otic drops instill 4 drops in each ear twice daily for 7 days. Ordered Augmentin b.i.d. for 10 days. Return for follow-up in 2-3 weeks with tymps. All questions were addressed, advised to call sooner with concerns. Provider Statement: I CRISTINO DUPREE PA-C personally performed the services described in the documentation as described by the above named scribe in my presence. It is both accurate and complete at the time of final signature. Cristino Dupree PA-C Counseling: The following elements of medical decision making were considered during this visit: Reviewed and summarized previous records. The patient was counseled regarding prognosis, risks and benefits of treatment options, impressions, importance of compliance with treatment and risk factor reductions. The patient verbalized understanding and agreement to the plan. Please note that parts of this chart were generated using voice recognition KnowledgeVision dictation software. Although every effort was made to ensure the accuracy of this automated staff field engineer, some errors in staff field engineer may have occurred. Cristino Dupree PA-C 04/07/24 1651 documented in this encounter [facility] 01-14-2024 History of Present illness Narrative [facility] [address] [place] [id number] SUBJECTIVE: Patient ID (1995): Shayan Suggs is a 28 y.o. male presents today for Chief Complaint Patient presents with Follow-up HPI: Shayan is seen in follow-up today on right otitis media. He is present with his caregiver. He was last seen on 12/18/2023. At that time he had occluding cerumen debris in both ears and serous otitis media on the right. He was treated with Ceftin and Ciprodex drops. Since completing treatment he has not complained of right ear pain, caregiver denies continued drainage. There are no current concerns for hearing. HISTORY: Past Medical History: Diagnosis Date Asthma Autism Chronic periodontal disease Craniostenosis Disease of thyroid gland Dysphagia Eczema Hypermetropia of both eyes Hypothyroidism Intellectual disability Kidney stone Seizures (CMS-HCC) Sinusitis, chronic Strabismus Past Surgical History: Procedure Laterality Date BRAIN SURGERY MYRINGOTOMY WITH TUBE Bilateral 08/29/2022 Performed by Jan Baer MD PhD at [facility] Family History Problem Relation Age of Onset No Known Problems Mother No Known Problems Father Social History Socioeconomic History Marital status: Single Spouse name: Not on file Number of children: Not on file Years of education: Not on file Highest education level: Not on file Occupational History Not on file Tobacco Use Smoking status: Never Smokeless tobacco: Never Vaping Use Vaping status: Never Used Substance and Sexual Activity Alcohol use: Never Drug use: Never Sexual activity: Defer Other Topics Concern Not on file Social History Narrative Not on file Social Determinants of Health Financial Resource Strain: Not on file Food Insecurity: No Food Insecurity (09/26/2022) Hunger Screening Food Insecurity - Worry: Never True Food Insecurity - Inability: Never True Transportation Needs: Not on file Physical Activity: Not on file Stress: Not on file Social Connections: Not on file Interpersonal Safety: Not on file Housing Instability: Not on file Allergies Allergen Reactions Codeine Current Outpatient Medications Medication Sig Dispense Refill budesonide (PULMICORT) 0.5 mg/2 mL nebulizer solution Inhale 2 mL (0.5 mg total) by nebulization once daily. clotrimazole-betamethasone (LOTRISONE) cream Apply 1 Application topically in the morning and 1 Application before bedtime. 30 g 3 fluticasone propionate (FLONASE) 50 mcg/actuation nasal spray Administer 1 spray into each nostril in the morning and 1 spray before bedtime. guaiFENesin (ROBITUSSIN) 100 mg/5 mL syrup Take 10 mL (200 mg total) by mouth 3 (three) times a day as needed for cough. levothyroxine (SYNTHROID, LEVOTHROID) 50 MCG tablet Take 1 tablet (50 mcg total) by mouth in the morning. loratadine (CLARITIN) 10 mg tablet Take 1 tablet (10 mg total) by mouth nightly. montelukast (SINGULAIR) 10 mg tablet Take 1 tablet (10 mg total) by mouth in the morning. potassium citrate-citric acid (POLYCITRA) 1,100-334 mg/5 mL solution GIVE 10ML BY MOUTH TWICE A DAY DILUTE IN 1 GLASS OF WATERLIQUID No current facility-administered medications for this visit. REVIEW OF SYSTEMS: Review of Systems Constitutional: Negative for fever. HENT: Negative for ear discharge and ear pain. Eyes: Negative for redness. Respiratory: Negative for shortness of breath. Gastrointestinal: Negative for nausea and vomiting. Skin: Negative for rash. Data Reviewed: PHYSICAL EXAMINATION: Ht 162.6 cm (5' 4 ) Wt 72.6 kg (160 lb) BMI 27.46 kg/m Constitutional: Healthy, alert, cooperative, and in no distress and normal ablility to communicate . Voice normal quality. Head/Face: salivary glands normal and sinuses nontender Eyes: No gross abnormalities., EOMI, no nystagmus, and no lid ptosis Ear: RIGHT: hearing normal, external ear normal, canal normal, and Ear tube in, open, and dry LEFT: hearing normal, external ear normal, canal normal, and Ear tube in, open, and dry Nose: External nose appears normal Oral: normal lips Heart: Regular rate Respiration: No stridor, Normal respiratory effort. Neurologic: Grossly normal Alert Oriented X 3 Affect normal Cranial nerves 2 -12 grossly intact ASSESSMENT/PLAN: Shayan was seen today for follow-up. Diagnoses and all orders for this visit: Dysfunction of both eustachian tubes Otomycosis Right serous otitis media-resolved Plan: On exam today, right otitis media has resolved. Bilateral PE tubes are in place, patent and dry. We discussed treatment for chronic otomycosis. Advised to continue a Lotrisone with instructions to apply once nightly every other night. Dry ear precautions were discussed as outlined in AVS. Return for follow-up in 6 months, all questions were addressed, advised to call sooner with concerns. Provider Statement: I CRISTINO DUPREE PA-C personally performed the services described in the documentation as described by the above named scribe in my presence. It is both accurate and complete at the time of final signature. Cristino Dupree PA-C Counseling: The following elements of medical decision making were considered during this visit: Reviewed and summarized previous records and History and physical. The patient was counseled regarding prognosis, risks and benefits of treatment options, impressions, importance of compliance with treatment and risk factor reductions. The patient verbalized understanding and agreement to the plan. Please note that parts of this chart were generated using voice recognition KnowledgeVision dictation software. Although every effort was made to ensure the accuracy of this automated staff field engineer, some errors in staff field engineer may have occurred. Cristino Dupree PA-C 01/14/24 0856 documented in this encounter [facility] 01-14-2024 Instructions Cristino Dupree PA-C - 01/14/2024 8:45 AM EDT DRY EAR PRECAUTIONS 1. Avoid swimming or submerging your ears under water. 2. When showering/bathing: a. Place a cotton ball dipped in Vaseline in the outer ear canal to create a seal or wear an ear plug b. Face affected ear away from the water c. Dispose of cotton ball after every use d. Should water enter the ear canal, run a hairdryer gently around your outer ear for several seconds after the shower. 3. Avoid use of any ear drops unless otherwise prescribed by your provider. 4. For additional concerns, consult with your ENT provider. documented in this encounter [facility] 12-29-2023 Hospital Discharge instructions Anh Cordon RN - 12/29/2023 9:14 AM EDT PERIOPERATIVE DISCHARGE/HOME-GOING INSTRUCTIONS ANESTHESIA - GENERAL (ADULT) If a problem arises, you may contact your physician by calling [phone] and asking for the resident specialty finishing utility person for DENTAL service. Special Care Needs: Activity: Rest at home today and tomorrow, then progress to your regular activities as tolerated. Diet: Clear liquids are best tolerated at first. If you are not nauseated, you can progress your diet to solid foods as tolerated. Possible post-operative precautions: Call you doctor or clinic for: 1. Signs of infection such as fever or chills. 2. Severe pain that in not relieved by Tylenol or your pain medicine prescription. 3. You may have a sore throat - it is usually gone in 1 to 2 days. Post-anesthesia safety: Possible side effects include drowsiness, dizziness, or inability to think clearly. For your safety, do not drive, drink alcoholic beverages, take any unprescribed medication or make any important decisions for 24 hours. A responsible adult should be with you for 24 hours. If no urine by 3 pm or you become very uncomfortable and can t urinate, call [phone] or come to the emergency room. The day after surgery, a nurse will call to check on you. However, if there are any questions or concerns, please call us at the number listed in the home going instructions. The following attachments cannot be sent through Care Everywhere.How to Care for Your Mouth and Teeth (Togolese)documented in this encounter [facility] 12-29-2023 Surgery Surgical operation note [facility] OR 3 Shayan Suggs 28 year old male Surgical Contact Serial Number: [id number] Preoperative Diagnosis: Pre-op Diagnosis * Caries [K02.9] Autism [F84.0] Seizures disorder [G40] Severe Intellectual Disability [F72] Postoperative Diagnosis: Autism [F84.0] Seizures disorder [G40] Severe Intellectual Disability [F72] Procedures: Exam [id number] X-Rays 94572 Cleaning 33054 Surgeon(s): Surgeon(s): Ayan Hanson DDS Executive Team Leader Surgeon: Cristy Merino DDS Falcon Andara, Fernando DDS Anesthesia: General- Nasal ETT Estimated Blood Loss: less than 5 cc IV Fluids: 700 cc Urine Output: Not measured. Findings: The patient was brought to the operating room and placed in the supine position on the operating room table. Following satisfactory induction of GA. The patient was intubated with a nasal endotracheal tube. He was then prepped and drapped in the usual sterile fashion for dental procedures. Full mouth series were then taken and an oral examination was completed. A moistened throat pack was then placed. Full mouth scaling was then performed. The radiographs were examined by the attending and the resident and used in conjunction with th oral exam to formulate a treatment plan. Restorations NONE, extraction and surgical NONE. The dentition was cleaned and then polished with prophy paste. The oral cavity was irrigated and suctioned then the throat pack was removed. Fluoride treament was placed on the dentition. The patient tolerated the procedure well was extubated in the operating room, and taken to the PACU in stable condition. Complications: None Status at end of surgery: Stable Medications: Outpatient Medications Marked as Taking for the 12/29/23 encounter (Hospital Encounter) Medication Sig Dispense Refill FLUTICASONE PROPIONATE HFA INHALATION Inhale by mouth. levothyroxine (SYNTHROID) 50 MCG tablet Take 50 mcg by mouth daily. loratadine (CLARITIN) 10 MG tablet Take 10 mg by mouth daily. montelukast (SINGULAIR) 10 MG tablet Take 10 mg by mouth daily. Potassium Citrate (UROCIT-K 15) 15 MEQ (1620 MG) TBCR Take 1 Tab by mouth 3 times daily. Dictated by: John Domingo DDs, Dr Vilchis was present for the critical portions of the procedure. John Domingo DDS 12/29/2023 7:24 AM [facility] Work Phone: 12-29-2023 Miscellaneous Notes [facility] OR 3 Shayan Suggs 28 year old male Surgical Contact Serial Number: [id number] Preoperative Diagnosis: Pre-op Diagnosis * Caries [K02.9] Autism [F84.0] Seizures disorder [G40] Severe Intellectual Disability [F72] Postoperative Diagnosis: Autism [F84.0] Seizures disorder [G40] Severe Intellectual Disability [F72] Procedures: Exam [id number] X-Rays 28444 Cleaning 76381 Surgeon(s): Surgeon(s): Ayan Hanson DDS Executive Team Leader Surgeon: Cristy Merino DDS Falcon Andara, Fernando DDS Anesthesia: General- Nasal ETT Estimated Blood Loss: less than 5 cc IV Fluids: 700 cc Urine Output: Not measured. Findings: The patient was brought to the operating room and placed in the supine position on the operating room table. Following satisfactory induction of GA. The patient was intubated with a nasal endotracheal tube. He was then prepped and drapped in the usual sterile fashion for dental procedures. Full mouth series were then taken and an oral examination was completed. A moistened throat pack was then placed. Full mouth scaling was then performed. The radiographs were examined by the attending and the resident and used in conjunction with th oral exam to formulate a treatment plan. Restorations NONE, extraction and surgical NONE. The dentition was cleaned and then polished with prophy paste. The oral cavity was irrigated and suctioned then the throat pack was removed. Fluoride treament was placed on the dentition. The patient tolerated the procedure well was extubated in the operating room, and taken to the PACU in stable condition. Complications: None Status at end of surgery: Stable Medications: Outpatient Medications Marked as Taking for the 12/29/23 encounter (Hospital Encounter) Medication Sig Dispense Refill FLUTICASONE PROPIONATE HFA INHALATION Inhale by mouth. levothyroxine (SYNTHROID) 50 MCG tablet Take 50 mcg by mouth daily. loratadine (CLARITIN) 10 MG tablet Take 10 mg by mouth daily. montelukast (SINGULAIR) 10 MG tablet Take 10 mg by mouth daily. Potassium Citrate (UROCIT-K 15) 15 MEQ (1620 MG) TBCR Take 1 Tab by mouth 3 times daily. Dictated by: John Domingo DDs, Dr Vilchis was present for the critical portions of the procedure. John Domingo DDS 12/29/2023 7:24 AM Brief Operative Note [facility] OR 3 Shayan Suggs 28 year old male Surgical Contact Serial Number: [id number] Preoperative Diagnosis: Pre-op Diagnosis * Caries [K02.9] Autism [F84.0] Seizures disorder [G40] Severe Intellectual Disability [F72] Postoperative Diagnosis: Autism [F84.0] Seizures disorder [G40] Severe Intellectual Disability [F72] Procedures: Exam [id number] X-Rays 69565 Cleaning 23906 Surgeon(s): Surgeon(s): Ayan Hanson DDS Aboelkheir, Mira, DDS Falcon Andara, Fernando DDS Staff: Cribber Nurse: Leeanne Valenzuela Anesthesia: General Anesthesiologist: Robby Wang MD ASSISTANT STORE MANAGER SALES: Ingrid Frias APRN-CRNA Specimen(s): * No specimens in log * Estimated Blood Loss: less than 5 cc Lines/Drains: * No LDAs found * Temporarily Retained Foreign Object: No Findings: Normal Complications: None Status at end of surgery: Stable Activity: weight bearing as tolerated Surgical wound class: No wound. Patient Class: Outpatient Surgery. Is this a patient scheduled as an outpatient that needs to be admitted as an inpatient? No Dr. Vilchis was present in the OR for the critical portion of the procedure and procedure sign-out. Signed by John Domingo DDS 12/29/2023 7:12 AM documented in this encounter [facility] 12-29-2023 History of Present illness Narrative ----- Friday, December 29, 2023 at 8:36:09 AM ----- ----- Provider: [id number] Vilchis DDS -- Clinic: [facility] ----- [place] notes, [place] ready [place], only cleaning was needed, crowded teeth, food accumulation, not calculus. - [facility] OR 3 Shayan Suggs 28 year old male Surgical Contact Serial Number: [id number] Preoperative Diagnosis: Pre-op Diagnosis * Caries [K02.9] * Autism [F84.0] * Seizures disorder [G40] * Severe Intellectual Disability [F72] Postoperative Diagnosis: * Autism [F84.0] * Seizures disorder [G40] * Severe Intellectual Disability [F72] Procedures: Exam [id number] X-Rays 35075 Cleaning 71073 Surgeon(s): Surgeon(s): Ayan Hanson DDS Executive Team Leader Surgeon: Cristy Merino DDS Falcon Andara, Fernando DDS Anesthesia: General- Nasal ETT Estimated Blood Loss: less than 5 cc IV Fluids: 700 cc Urine Output: Not measured. Findings: The patient was brought to the operating room and placed in the supine position on the operating room table. Following satisfactory induction of GA. The patient was intubated with a nasal endotracheal tube. He was then prepped and drapped in the usual sterile fashion for dental procedures. Full mouth series were then taken and an oral examination was completed. A moistened throat pack was then placed. Full mouth scaling was then performed. The radiographs were examined by the attending and the resident and used in conjunction with th oral exam to formulate a treatment plan. Restorations NONE, extraction and surgical NONE. The dentition was cleaned and then polished with prophy paste. The oral cavity was irrigated and suctioned then the throat pack was removed. Fluoride treament was placed on the dentition. The patient tolerated the procedure well was extubated in the operating room, and taken to the PACU in stable condition. Complications: None Status at end of surgery: Stable Medications: Outpatient Medications Marked as Taking for the 12/29/23 encounter (Hospital Encounter) Medication Sig Dispense Refill * FLUTICASONE PROPIONATE HFA INHALATION Inhale by mouth. * levothyroxine (SYNTHROID) 50 MCG tablet Take 50 mcg by mouth daily. * loratadine (CLARITIN) 10 MG tablet Take 10 mg by mouth daily. * montelukast (SINGULAIR) 10 MG tablet Take 10 mg by mouth daily. * Potassium Citrate (UROCIT-K 15) 15 MEQ (1620 MG) TBCR Take 1 Tab by mouth 3 times daily. Dictated by: John Domingo DDs, Dr Vilchis was present for the critical portions of the procedure. John Domingo DDS 12/29/2023 7:24 AM documented in this encounter [facility] 12-29-2023 Surgery Postoperative evaluation and management note Brief Operative Note [facility] OR 3 Shayan Suggs 28 year old male Surgical Contact Serial Number: [id number] Preoperative Diagnosis: Pre-op Diagnosis * Caries [K02.9] Autism [F84.0] Seizures disorder [G40] Severe Intellectual Disability [F72] Postoperative Diagnosis: Autism [F84.0] Seizures disorder [G40] Severe Intellectual Disability [F72] Procedures: Exam [id number] X-Rays 86482 Cleaning 66841 Surgeon(s): Surgeon(s): Ayan Hanson DDS Aboelkheir, Mira, DDS Falcon Andara, Fernando DDS Staff: Cribber Nurse: Leeanne Valenzuela Anesthesia: General Anesthesiologist: Robby Wang MD ASSISTANT STORE MANAGER SALES: Ingrid Frias APRN-CRNA Specimen(s): * No specimens in log * Estimated Blood Loss: less than 5 cc Lines/Drains: * No LDAs found * Temporarily Retained Foreign Object: No Findings: Normal Complications: None Status at end of surgery: Stable Activity: weight bearing as tolerated Surgical wound class: No wound. Patient Class: Outpatient Surgery. Is this a patient scheduled as an outpatient that needs to be admitted as an inpatient? No Dr. Vilchis was present in the OR for the critical portion of the procedure and procedure sign-out. Signed by John Domingo DDS 12/29/2023 7:12 AM [facility] History and physical note Surgical Attestation: I have reviewed the patient's History and Physical Examination. I have personally seen and evaluated the patient, repeating garcia portions. There is no significant interval change. Surgery is still indicated. Yes Consent reviewed and signed by patient/family: Yes Operative site verified and marked: site verified but not marked as not anatomically possible John Domingo DDS 12/29/2023 7:09 AM [facility] 12-29-2023 Note Surgical Attestation : I have reviewed the patient's History and Physical Examination. I have personally seen and evaluated the patient, repeating garcia portions. There is no significant interval change. Surgery is still indicated. Yes Consent reviewed and signed by patient/family: Yes Operative site verified and marked: site verified but not marked as not anatomically possible John Domingo DDS 12/29/2023 7:09 AM [facility] 12-29-2023 History and physical note Surgical Attestation: I have reviewed the patient's History and Physical Examination. I have personally seen and evaluated the patient, repeating garcia portions. There is no significant interval change. Surgery is still indicated. Yes Consent reviewed and signed by patient/family: Yes Operative site verified and marked: site verified but not marked as not anatomically possible John Domingo DDS 12/29/2023 7:09 AM documented in this encounter [facility] 12-26-2023 Telephone encounter Note Anesthesia consent obtained and scanned into EPIC. Scheduled for surgery 12/29/2023. [facility] 12-26-2023 Miscellaneous Notes Anesthesia consent obtained and scanned into EPIC. Scheduled for surgery 12/29/2023. documented in this encounter [facility] 12-18-2023 History of Present illness Narrative [facility] [address] MA[address] [place] [phone] SUBJECTIVE: Patient ID (1995): Shayan Suggs is a 28 y.o. male presents today for Chief Complaint Patient presents with Follow-up 4 month check HPI: Shayan is seen for a follow-up and tube check. He has a history of ETD, chronic otitis media and otomycosis. PE tubes were placed on 08/29/2022. He was last seen on 04/29/2023. At that time bilateral tubes were in place and patent. He is present with his caregiver, Kourtney today. She notes recent complaints of right ear pain. Nursing staff at facility where he resides have reported drainage from the right ear. HISTORY: Past Medical History: Diagnosis Date Asthma Autism Chronic periodontal disease Craniostenosis Disease of thyroid gland Dysphagia Eczema Hypermetropia of both eyes Hypothyroidism Intellectual disability Kidney stone Seizures (CMS-HCC) Sinusitis, chronic Strabismus Past Surgical History: Procedure Laterality Date BRAIN SURGERY MYRINGOTOMY WITH TUBE Bilateral 08/29/2022 Performed by Jan Baer MD PhD at [facility] Family History Problem Relation Age of Onset No Known Problems Mother No Known Problems Father Social History Socioeconomic History Marital status: Single Spouse name: Not on file Number of children: Not on file Years of education: Not on file Highest education level: Not on file Occupational History Not on file Tobacco Use Smoking status: Never Smokeless tobacco: Never Vaping Use Vaping status: Never Used Substance and Sexual Activity Alcohol use: Never Drug use: Never Sexual activity: Defer Other Topics Concern Not on file Social History Narrative Not on file Social Determinants of Health Financial Resource Strain: Not on file Food Insecurity: No Food Insecurity (09/26/2022) Hunger Screening Food Insecurity - Worry: Never True Food Insecurity - Inability: Never True Transportation Needs: Not on file Physical Activity: Not on file Stress: Not on file Social Connections: Not on file Interpersonal Safety: Not on file Housing Instability: Not on file Allergies Allergen Reactions Codeine Current Outpatient Medications Medication Sig Dispense Refill budesonide (PULMICORT) 0.5 mg/2 mL nebulizer solution Inhale 2 mL (0.5 mg total) by nebulization once daily. clotrimazole-betamethasone (LOTRISONE) cream Apply 1 Application topically in the morning and 1 Application before bedtime. 30 g 3 fluticasone propionate (FLONASE) 50 mcg/actuation nasal spray Administer 1 spray into each nostril in the morning and 1 spray before bedtime. guaiFENesin (ROBITUSSIN) 100 mg/5 mL syrup Take 10 mL (200 mg total) by mouth 3 (three) times a day as needed for cough. levothyroxine (SYNTHROID, LEVOTHROID) 50 MCG tablet Take 1 tablet (50 mcg total) by mouth in the morning. loratadine (CLARITIN) 10 mg tablet Take 1 tablet (10 mg total) by mouth nightly. montelukast (SINGULAIR) 10 mg tablet Take 1 tablet (10 mg total) by mouth in the morning. potassium citrate-citric acid (POLYCITRA) 1,100-334 mg/5 mL solution GIVE 10ML BY MOUTH TWICE A DAY DILUTE IN 1 GLASS OF WATERLIQUID ceFUROxime (CEFTIN) 500 mg tablet Take 1 tablet (500 mg total) by mouth in the morning and 1 tablet (500 mg total) before bedtime. Do all this for 10 days. 20 tablet 0 ciprofloxacin-dexAMETHasone (CIPRODEX) otic suspension Administer 4 drops into both ears in the morning and 4 drops before bedtime. Do all this for 5 days. 7.5 mL 0 No current facility-administered medications for this visit. REVIEW OF SYSTEMS: Review of Systems Constitutional: Negative for chills and fever. HENT: Negative for ear discharge, ear pain and rhinorrhea. Respiratory: Negative for cough and shortness of breath. Gastrointestinal: Negative for nausea and vomiting. Neurological: Negative for headaches. Hematological: Does not bruise/bleed easily. Data Reviewed: PHYSICAL EXAMINATION: Temp 37.1 C (98.8 F) (Temporal) Ht 162.6 cm (5' 4 ) Wt 70.7 kg (155 lb 12.8 oz) BMI 26.74 kg/m Constitutional: Healthy, alert, cooperative, and in no distress and normal ablility to communicate . Voice normal quality. Head/Face: salivary glands normal, atraumatic, sinuses nontender, and Cranial abnormalities Eyes: EOMI and no lid ptosis Ear: RIGHT: hearing normal, external ear normal, canal abnormal due to occluding cerumen, and See procedure note. LEFT: hearing normal, external ear normal, canal abnormal due to occluding cerumen, and See procedure note. Nose: External nose appears normal Oral: normal lips Heart: Regular rate Respiration: No stridor, Normal respiratory effort. Neurologic: Grossly normal Alert Oriented X 3 Affect normal Cranial nerves 2 -12 grossly intact Microscopic Evaluation of the Ear(s): Pre Op Diagnosis: impacted cerumen , otitis media- AD Post Op Diagnosis: Same Procedure: Microscopic evaluation of Clinician: Cristino Dupree PA-C Anesthesia: none Complications: none Procedure note: Patient was placed in a seated/supine position. Right Ear: occluding cerumen debris removed with suction. As suction was advanced evidence of previous bleeding was noted. PE tube is in place with occluding debris within the lumen of the tube which was removed with #3 suction. There is serous middle ear fluid. 4 drops of Ciprodex were instilled and a cotton ball was placed. Left Ear: Occluding cerumen debris removed with suction. PE tube is in place with scant non occluding debris within the lumen. Procedure was successful and and tolerated well.. Post operative instructions were given. ASSESSMENT/PLAN: Shayan was seen today for follow-up. Diagnoses and all orders for this visit: Acute suppurative otitis media of right ear without spontaneous rupture of tympanic membrane, recurrence not specified - ceFUROxime (CEFTIN) 500 mg tablet; Take 1 tablet (500 mg total) by mouth in the morning and 1 tablet (500 mg total) before bedtime. Do all this for 10 days. - ciprofloxacin-dexAMETHasone (CIPRODEX) otic suspension; Administer 4 drops into both ears in the morning and 4 drops before bedtime. Do all this for 5 days. Plan: Shayan Suggs was seen in follow-up today occluding debris was removed from both ears. On exam he was found to have right otitis media with previous evidence of bleeding and serous middle ear fluid. PE tube was in place with a non occluding debris within the lumen, no evidence of fluid or infection. The following recommendations and treatments were advised: 1. Begin taking Ceftin 500 mg twice daily for 10 days and Ciprodex otic drops instill 2 drops in both ears twice daily for 7 days. 2. Dry ear precautions were discussed. 3. Return for follow-up in 3-4 weeks for re-evaluation, advised to call sooner with concerns. Provider Statement: I CRISTINO DUPREE PA-C personally performed the services described in the documentation as described by the above named scribe in my presence. It is both accurate and complete at the time of final signature. Cristino Dupree PA-C 12/18/2023 1:35 PM Counseling: The following elements of medical decision making were considered during this visit: Reviewed and summarized previous records and History and physical. The patient was counseled regarding prognosis, risks and benefits of treatment options, impressions, importance of compliance with treatment and risk factor reductions. The patient verbalized understanding and agreement to the plan. Please note that parts of this chart were generated using voice recognition M*Modal dictation software. Although every effort was made to ensure the accuracy of this automated staff field engineer, some errors in staff field engineer may have occurred. Cristino Dupree PA-C 12/18/23 1340 documented in this encounter [facility] 12-18-2023 Instructions Cristino Dupree PA-C - 12/18/2023 12:45 PM EDT DRY EAR PRECAUTIONS 1. Avoid swimming or submerging your ears under water. 2. When showering/bathing: a. Place a cotton ball dipped in Vaseline in the outer ear canal to create a seal or wear an ear plug b. Face affected ear away from the water c. Dispose of cotton ball after every use d. Should water enter the ear canal, run a hairdryer gently around your outer ear for several seconds after the shower. 3. Avoid use of any ear drops unless otherwise prescribed by your provider. 4. For additional concerns, consult with your ENT provider. [email or web address] History of Present illness Narrative Pre-Admission Testing Consultation Shayan Suggs, [id number] 28 year old Male 12/24/2023 Consult placed to [facility] by Ayan Aceves DDS. [facility] Triage Risk Score Total Score: 0 Shayan Suggs is scheduled for dental zoroastrianism on 12/29/23 at [facility]. Pre-Op diagnosis of: dental caries HISTORY OF PRESENT ILLNESS: Patient is here for pre-admission optimization and education prior to surgery. H/o dental caries. Here with his caregiver Caden. RECENT ILLNESS: Serious illness or hospitalization within the last six months. No STOP BANG: STOP-BANG Row Name 12/16/23 1114 History of sleep apnea? No Snoring No Tired/Fatigued No Observed Apnea No Pressure: Hypertension No BMI greater than 35 0 Age greater than 50 0 Neck circ greater than 40cm (15.75 ) No Gender male? 1 Score 1 ALLERGIES: Allergies Allergen Reactions Codeine Seasonal Ic halfway info - Auto Accessories Installer Patient Active Problem List: Dental caries [K02.9] Caries [K02.9] SOCIAL HISTORY: reports no history of drug use. Social History Tobacco Use Smoking status: Never Smokeless tobacco: Never Substance Use Topics Alcohol use: Never Drug use: Never MEDICAL HISTORY: Past Medical History: Diagnosis Date Acne halfway info - Auto Accessories Installer Asthma ([facility]) halfway info - Auto Accessories Installer Autism ([facility]) halfway info - Auto Accessories Installer Chronic periodontal disease halfway info - Auto Accessories Installer Chronic sinusitis halfway info - Auto Accessories Installer Craniostenosis halfway info - Auto Accessories Installer Dysphagia halfway info - Auto Accessories Installer Eczema halfway info - Auto Accessories Installer History of kidney stones halfway info - Auto Accessories Installer Hypothyroidism halfway info - Auto Accessories Installer PDD (pervasive developmental disorder) (HCC) halfway info - Auto Accessories Installer Seizure disorder ([facility]) halfway info - Auto Accessories Installer Severe intellectual disability shelter information SURGICAL HISTORY: Past Surgical History: Procedure Laterality Date DENTAL RESTORATIONS Bilateral 09/06/2014 Procedure: DENTAL RESTORATIONS; Surgeon: Jan Joshua DDS; Location: [facility]; Service: Dental DENTAL RESTORATIONS N/A 03/14/2017 Procedure: DENTAL EXAM, X-RAY, DEEP CLEANING UNDER ANESTHESIA; Surgeon: Ayan Hanson DDS; Location: [facility]; Service: Dental DENTAL RESTORATIONS N/A 06/04/2019 Procedure: DENTAL EXAM, X-RAY AND CLEANING UNDER ANESTHESIA ; Surgeon: Ayan Hanson DDS; Location: [facility]; Service: Dental EXTRACTION, TOOTH 03/14/2017 Procedure: EXTRACTION, TOOTH; Surgeon: Ayan Hanson DDS; Location: [facility]; Service: Dental Past Medical History and Review of Systems Pulmonary (+) asthma Dental ROS (+) teeth problems (dental caries; multiple dental zoroastrianism procedures) Comment: Dental caries S/p multiple dental zoroastrianism procedures Endo (+) hypothyroidism pathological technician - negative ROS Neuro/Psych (+) seizures (Date of last seizure unknown) Comment: Autism Severe intellectual disability Pervasive developmental disorder Dysphagia Craniostenosis Cardiovascular - negative ROS GI/Hepatic/Renal (+) nephrolithiasis Heme/Other - negative ROS PREVIOUS ANESTHETIC COMPLICATIONS: no history of difficult intubation , adverse effects of anesthetic agents, or family history of anesthesia-related problems, nor malignant hyperthermia CURRENT MEDICATION LIST: Current Outpatient Medications Medication Sig Dispense Refill FLUTICASONE PROPIONATE HFA INHALATION Inhale by mouth. albuterol (PROVENTIL) (2.5 mg/3 mL) nebulizer solution 2.5 mg via nebulizer every 4 hours as needed for Wheezing. levothyroxine (SYNTHROID) 50 MCG tablet Take 50 mcg by mouth daily. loratadine (CLARITIN) 10 MG tablet Take 10 mg by mouth daily. montelukast (SINGULAIR) 10 MG tablet Take 10 mg by mouth daily. Potassium Citrate (UROCIT-K 15) 15 MEQ (1620 MG) TBCR Take 1 Tab by mouth 3 times daily. No current facility-administered medications for this visit. HEIGHT: 5' 6 WEIGHT: Weight was 60.3 kg on 07/28/2014 BMI: 25.28 VITAL SIGNS: BP 118/87 Pulse 80 Temp 98 F (36.7 C) (Tympanic) Resp 16 Ht 5' 6 (1.676 m) Wt 156 lb 9.6 oz (71 kg) SpO2 100% BMI 25.28 kg/m PAIN ASSESSMENT: Severity: 0 Location: N/A AIRWAY EXAM: Mallampati score: 4 TMD: Adequate Neck Extension/ Flexion: Adequate Mouth Opening: Adequate Dentition: Missing teeth Micrognathia/Overbite: No FUNCTIONAL CAPACITY: 4-10 mets PHYSICAL EXAM: Eyes: Deferred ENT: Deferred Pulmonary: Chest clear to auscultation bilaterally and Denies fever, chills, cough, shortness of breath Cardiovascular: Irregular rate and rhythm Abdomen: Soft and non-tender and Bowel sounds normal Extremities: No gross or obvious abnormalities Neurologic: Awake/Alert Psychiatric: Appropriate mood/affect Skin: No gross or obvious abnormalities on visible skin Assessment and Plan: 1) Pre-Admission Evaluation 2) Dental zoroastrianism; Dx: dental caries *Spoke to Nurse Rebecca from [facility], medications reviewed and patient instructions/fasting guidelines given. LABS, TESTS, CONSULTS ORDERED: No orders or meds were signed during this encounter LABORATORY DATA: *Labs CBC/Chemistry from O[facility] WNL; (Salvador[place]Rincon 08/20/23) see Media tab from 12/16/23 for review TESTS REVIEWED: I personally reviewed and interpreting and findings were: CXRay: No Chest x-ray found EKG: none ECHO: Echocardiogram date: Not Found Stress test date: Last StressTest: none found going back to 03/16/2013 Patient is medically optimized for surgery. This note will be forwarded to the referring provider. Patient should follow up with referring provider. Patient has been directed to discuss specific recovery questions with his/her surgeon/proceduralist. Visit activities: - preparing to see the patient (e.g., review of tests) - obtaining and/or reviewing separately obtained history - performing a medically appropriate examination and/or evaluation - counseling and educating the patient/family/caregiver - ordering medications, tests, or procedures - documenting clinical information in the electronic or other health record Interviewer signature: LISETTE Ivory 3:24 PM 12/24/2023 documented in this encounter [facility] 12-16-2023 Note Pre-Admission Testin g Consultation Shayan Suggs, [id number] 28 year old Male 12/24/2023 Consult placed to [facility] by Ayan Aceves DDS. [facility] Triage Risk Score Total Score: 0 Shayan Suggs is scheduled for dental zoroastrianism on 12/29/23 at [facility]. Pre-Op diagnosis of: dental caries HISTORY OF PRESENT ILLNESS: Patient is here for pre-admission optimization and education prior to surgery. H/o dental caries. Here with his caregiver Caden. RECENT ILLNESS: Serious illness or hospitalization within the last six months. No STOP BANG: STOP-BANG Row Name 12/16/23 1114 History of sleep apnea? No Snoring No Tired/Fatigued No Observed Apnea No Pressure: Hypertension No BMI greater than 35 0 Age greater than 50 0 Neck circ greater than 40cm (15.75 ) No Gender male? 1 Score 1 ALLERGIES: Allergies Allergen Reactions Codeine Seasonal Ic halfway info - Auto Accessories Installer Patient Active Problem List: Dental caries [K02.9] Caries [K02.9] SOCIAL HISTORY: reports no history of drug use. Social History Tobacco Use Smoking status: Never Smokeless tobacco: Never Substance Use Topics Alcohol use: Never Drug use: Never MEDICAL HISTORY: Past Medical History: Diagnosis Date Acne halfway info - Auto Accessories Installer Asthma ([facility]) halfway info - Auto Accessories Installer Autism ([facility]) halfway info - Auto Accessories Installer Chronic periodontal disease halfway info - Auto Accessories Installer Chronic sinusitis halfway info - Auto Accessories Installer Craniostenosis halfway info - Auto Accessories Installer Dysphagia halfway info - Auto Accessories Installer Eczema halfway info - Auto Accessories Installer History of kidney stones halfway info - Auto Accessories Installer Hypothyroidism halfway info - Auto Accessories Installer PDD (pervasive developmental disorder) ([facility]) halfway info - Auto Accessories Installer Seizure disorder ([facility]) halfway info - Auto Accessories Installer Severe intellectual disability shelter information SURGICAL HISTORY: Past Surgical History: Procedure Laterality Date DENTAL RESTORATIONS Bilateral 09/06/2014 Procedure: DENTAL RESTORATIONS; Surgeon: Jan Joshua DDS; Location: [facility]; Service: Dental DENTAL RESTORATIONS N/A 03/14/2017 Procedure: DENTAL EXAM, X-RAY, DEEP CLEANING UNDER ANESTHESIA; Surgeon: Ayan Hanson DDS; Location: [facility]; Service: Dental DENTAL RESTORATIONS N/A 06/04/2019 Procedure: DENTAL EXAM, X-RAY AND CLEANING UNDER ANESTHESIA ; Surgeon: Ayan Hanson DDS; Location: [facility]; Service: Dental EXTRACTION, TOOTH 03/14/2017 Procedure: EXTRACTION, TOOTH; Surgeon: Ayan Hanson DDS; Location: [facility]; Service: Dental Past Medical History and Review of Systems Pulmonary (+) asthma Dental ROS (+) teeth problems (dental caries; multiple dental zoroastrianism procedures) Comment: Dental caries S/p multiple dental zoroastrianism procedures Endo (+) hypothyroidism pathological technician - negative ROS Neuro/Psych (+) seizures (Date of last seizure unknown) Comment: Autism Severe intellectual disability Pervasive developmental disorder Dysphagia Craniostenosis Cardiovascular - negative ROS GI/Hepatic/Renal (+) nephrolithiasis Heme/Other - negative ROS PREVIOUS ANESTHETIC COMPLICATIONS: no history of difficult intubation , adverse effects of anesthetic agents, or family history of anesthesia-related problems, nor malignant hyperthermia CURRENT MEDICATION LIST: Current Outpatient Medications Medication Sig Dispense Refill FLUTICASONE PROPIONATE HFA INHALATION Inhale by mouth. albuterol (PROVENTIL) (2.5 mg/3 mL) nebulizer solution 2.5 mg via nebulizer every 4 hours as needed for Wheezing. levothyroxine (SYNTHROID) 50 MCG tablet Take 50 mcg by mouth daily. loratadine (CLARITIN) 10 MG tablet Take 10 mg by mouth daily. montelukast (SINGULAIR) 10 MG tablet Take 10 mg by mouth daily. Potassium Citrate (UROCIT-K 15) 15 MEQ (1620 MG) TBCR Take 1 Tab by mouth 3 times daily. No current facility-administered medications for this visit. HEIGHT: 5' 6 WEIGHT: Weight was 60.3 kg on 07/28/2014 BMI: 25.28 VITAL SIGNS: BP 118/87 Pulse 80 Temp 98 ???F (36.7 ???C) (Tympanic) Resp 16 Ht 5' 6 (1.676 m) Wt 156 lb 9.6 oz (71 kg) SpO2 100% BMI 25.28 kg/m??? PAIN ASSESSMENT: Severity: 0 Location: N/A AIRWAY EXAM: Mallampati score: 4 TMD: Adequate Neck Extension/ Flexion: Adequate Mouth Opening: Adequate Dentition: Missing teeth Micrognathia/Overbite: No FUNCTIONAL CAPACITY: 4-10 mets PHYSICAL EXAM: Eyes: Deferred ENT: Deferred Pulmonary: Chest clear to auscultation bilaterally and Denies fever, chills, cough, shortness of breath Cardiovascular: Irregular rate and rhythm Abdomen: Soft and non-tender and Bowel sounds normal Extremities: No gross or obvious abnormalities Neurologic: Awake/Alert Psychiatric: Appropriate mood/affect Skin: No gross or obvious abnormalities on visible skin Assessment and (more content not included)... [facility] 12-16-2023 Instructions Aleena Berger APRN-CNP - 12/16/2023 11:16 AM EDT On the morning of your surgery, please take only the following medications, with a small sip of water: FLUTICASONE PROPIONATE HFA INHALATION albuterol (PROVENTIL) (2.5 mg/3 mL) nebulizer solution levothyroxine (SYNTHROID) 50 MCG tablet loratadine (CLARITIN) 10 MG tablet montelukast (SINGULAIR) 10 MG tablet Potassium Citrate (UROCIT-K 15) 15 MEQ (1620 MG) TBCR Do not take any Aspirin 7 days before surgery. Do not take any Ibuprofen, Aleve, Advil, or Motrin,Meloxicam,Naprosyn,Torad aol or any other NSAIDS 3 days before surgery. May take over the counter Acetaminophen (Tylenol) as needed for pain. Please hold all Vitamin E, [place] 3, fish oil and herbal supplements for 1 week prior to surgery. Please use this CHECKLIST to prepare for your surgery/procedure: ? Assume that any lab or testing done during your Pre-admission testing appointment is within normal limits unless otherwise contacted. ? Expect a call from [employer] one business day prior to surgery for surgery arrival time and location. ? Please plan to restart your medications the day after surgery unless otherwise explicitly instructed. ? Please contact your surgeon s/proceduralist s office for any surgical or recovery types of questions. ? CANCELLING YOUR SURGERY/PROCEDURE: If you get a cold, are not feeling well, or become , please call your surgeon s office as soon as possible. ? Refer to your Preparing for Your Surgery/Procedure booklet or [email or web address] if you have questions. Contact the Pre-Admission Testing department at [phone] or your surgeon's office with any questions that are not answered. ? Eating and drinking before surgery: Adult Patients: No food or drink for 8 hours prior to surgery check in time. A sip of water with morning medications is acceptable up to two hours prior to your arrival time Enhanced Recovery After Surgery (ERAS), bariatric, and endoscopy/colonoscopy patients should follow their surgeon s/proceduralist s instructions for clear fluids prior to surgery. Pediatric Patients (under the age of 1212 years old): Patients are not to have solid food for 8 hours prior to coming for surgery. Patients can have formula or non-human milk (skim, 2%, whole, nut-milks, soy, etc.) 6 hours prior to coming for surgery. Patients can have breast milk up to 4 hours prior to coming for surgery. Patients can have clear liquids (water, flavored ramírez, Pedialyte) up to 2 hours prior to coming for surgery. ON THE DAY OF SURGERY: ? DO bring your ID, insurance card, medication list, and a small amount of santacruz for filling prescriptions and any medical co-pays. ? Do NOT wear any jewelry, (including rings, earrings, or mouth, tongue, or body piercings). Metal jewelry could cause constriction, amputation, or lujan. Loose or bulky things in your mouth can be unsafe and result in breathing problems. ? DO bring glasses if you wear contacts and other assistance items such as oxygen, inhaler, cane, walker, etc. ? Do NOT bring valuables, credit cards, or large amounts of santacruz. ? Do NOT wear lotion or strong-smelling fragrance (perfume, cologne, cream or lotion). ? ARRANGE FOR A RIDE: If you are scheduled to go home the same day of surgery, a responsible adult MUST drive or accompany you home in a car, cab, shared ride service, or Metro-van. You will not be allowed to drive yourself home or travel home alone. Your surgery may be cancelled if you do not have a ride. A responsible adult must stay with you after surgery. Please call [facility] if you need transportation assistance or have concerns about going home [phone]. ? PEDIATRIC or ADOLESCENTS: Parents or a legal guardian must remain at the hospital during surgery. You will need to make childcare arrangements for your other small children to remain at home or bring an adult with you who can supervise them in the waiting area while you are with your child. Please bring legal guardianship papers with you if applicable. Patients who whose assigned sex at was female, and are starting puberty, will be tested for per hospital policy. ? SLEEP APNEA PATIENTS: Bring your sleep apnea machine and mask. ? PLEASE BE ON TIME. A late arrival may result in the cancellation/ delay of your surgery. ? Post-op Nausea and Vomiting: A risk of anesthesia is nausea and/or vomiting (PONV). Certain patients are at higher risk than others. Talk to your anesthesiologist about the plan to minimize this risk. In general, it is best to start with only ice chips or small sips of water, then progress to clear, non-alcoholic fluids. You do not have to eat if you do not feel like it; fluids are the most important in the first 24 hours after surgery. If you start to eat, try bananas, applesauce, plain toast, saltine crackers, or broth; avoid fried or fatty foods. Make sure to eat something about 15 minutes before taking any pain medications. Seek medical attention for any prolonged PONV and signs of dehydration. Thank you for choosing [facility]; it is our pleasure to care for you documented in this encounter [facility] 08-20-2023 Evaluation + Plan note Diagnostic Tests PendingT3 Free 08/20/23 [facility] 10-12-2021 History of Present illness Narrative ----- Tuesday, October 12, 2021 at 10:30:24 AM ----- ----- Provider: Duke Sandoval -- Clinic: [place] ----- [facility], Pt is ready for tx. Pt presents for examination. Pt is ID and semi-verbal, last seen in the OR in 2020. Pt states no when asked if he is in pain. Unable to take radiographs due to pt cooperation and would only allow for limited clinical exam (kept pulling away). Heavy plaque accumulation observed. Best [place] is for comprehensive exam with radiographs, cleaning and tx to be done in the OR under [facility]/ Dr. Josiane GALE. OR ----- Signed on Tuesday, October 12, 2021 at 10:40:58 AM ----- ----- Provider: Kerri Joshua DDS -- Clinic: [place] ----- documented in this encounter [facility] Evaluation note Diagnosis Caries- Primary Unspecified dental caries Caries- Primary Unspecified dental caries Caries Unspecified dental caries [facility]* Diagnosis Caries- Primary Unspecified dental caries Pre-op testing- Primary Preoperative examination, unspecified Body mass index (BMI) 25.0-25.9, adult Caries Unspecified dental caries [facility]* Diagnosis Caries- Primary Unspecified dental caries [facility]* Diagnosis Caries- Primary Unspecified dental caries Caries- Primary Unspecified dental caries documented in this encounter [facility] [employer] [facility] Work Phone: Evaluation note* Diagnosis Caries- Primary Unspecified dental caries documented in this encounter [facility] [employer] [facility] Work Phone: Evaluation note* Diagnosis Acute suppurative otitis media of right ear without spontaneous rupture of tympanic membrane, recurrence not specified- Primary [facility] Diagnosis Dysfunction of both eustachian tubes- Primary Otomycosis Other specified dermatomycoses [facility] Diagnosis Acute mucoid otitis media of right ear- Primary Dysfunction of both eustachian tubes Cerumen debris on tympanic membrane of both ears Other infective acute otitis externa of both ears [facility]* Diagnosis Other infective acute otitis externa of both ears- Primary Acute mucoid otitis media of right ear documented in this [facility] Diagnosis Other specified disorders of eustachian tube, bilateral- Primary documented in [facility] encounter [facility] Diagnosis Cerumen debris on tympanic membrane of both ears- Primary Dysfunction of both eustachian tubes documented in this encounter [facility]* Diagnosis Otomycosis- Primary Other specified dermatomycoses Dysfunction of both eustachian tubes Otorrhea of both ears documented in this [facility]* Diagnosis Otomycosis- Primary Other specified dermatomycoses Otorrhea of both ears Dysfunction of both eustachian tubes documented in this [facility]* Diagnosis Dental caries on smooth surface penetrating into dentin- Primary Dental caries of smooth surface Broken tooth without complication Open wound of tooth (broken) (fractured) (due to trauma), without mention of complication documented in this encounter [employer] Work Phone: Hospital course Narrative No data available for this section [facility] No data available for this section [facility]ructions[facility] on filedocumented in this encounter [facility] System[facility] on filedocumented in this encounter [facility] SystemInstructionsNot on filedocumented in this encounter [facility] on filedocumented in this encounter [facility] No data available for this section [facility] Summary Purpose Family History No Family History Records Found No data available for this section No Family History Records FoundNo Family History Records FoundNo Family History Records Found Advance Directives No Advanced Directives Records FoundNo Advanced Directives Records FoundNo Advanced Directives Records FoundNo Advanced Directives Records Found Reason for Referral Specialty Diagnoses / Procedures Referred By Freda alvarado Referred To Contact Anesthesiology Diagnoses Caries Ayan Hanson, DDS [address] [place] [address] [facility] PRE ADMISSION TESTING [address] [id number] Referral ID Status Reason Start Date Expiration Date V isits Requested Visits Authorized [id number] Authorized 10/16/2023 10/15/2024 1 1 Scheduling Instructions Your surgical team will reach out to you to schedule a pre-admission testing appointment. Question Answer Reason for consult? Recommended PAT Risk Score Additional Source Comments (unrecognized sect ion and content) No Status Records FoundNo Status Records FoundNo Status Records FoundNo Status Records Found INFORMATION SOURCE (unrecogn ized section and content) DATE CREATED AUTHOR 03/30/2022 [facility] DATE CREATED AUTHOR AUTHOR'S ORGANIZ ATION 08/22/2023 [facility] DATE CREATED AUTHOR AUTHOR'S ORGANIZ ATION 01/05/2024 [facility] DATE CREATED AUTHOR AUTHOR'S ORGANIZ ATION 12/05/2024 [facility] Patient Care team informatio n (unrecognized section and content) Internet Sales Representative Relationship Specialty Start Date End Date No Pcp, [place] [address] PCP - General Family Medicine 08/22/22 Internet Sales Representative Relationship Specialty Start Date End Date No Pcp, [place] [address] PCP - General Family Medicine 08/22/22 Internet Sales Representative Relationship Specialty Start Date End Date No Pcp[place] [address] PCP - General Family Medicine 08/22/22 Internet Sales Representative Relationship Specialty Start Date End Date No Pcp, [place] [address] PCP - General Family Medicine 08/22/22 Internet Sales Representative Relationship Specialty Start Date End Date No Pcp, [place] [address] PCP - General Family Medicine 08/22/22 Internet Sales Representative Relationship Specialty Start Date End Date No Pcp, [place] [address] PCP - General Family Medicine 08/22/22 Internet Sales Representative Relationship Specialty Start Date End Date No Pcp, [place] [address] PCP - General Family Medicine 08/22/22 Reason for Visit (unrecogniz ed section and content) Reason Onset Date Comments Pre-surgical Evaluation 12/25/2023 DD adult dental restorations 12/28 under [facility] at [place]. PAT completed - see future encounter for consent (request sent to main). EVON RN spoke to Michellericardo [phone], [place] address, and [phone] arrival time Reason Onset Date Comments PAT 12/26/2023 Anesthesia conse nt obtained Specialty Diagnoses / Procedures Referred By Freda t Referred To Contact Ambulatory Surgery Diagnoses Caries Caries [[email or web address]] Procedures UNLISTED PROCEDURE, DENTOALVEOLAR STRUCTURES ANESTHESIA, INTRAORAL PROC, W/BX; NOS DENTAL RESTORATIONS Ayan Hanson, DDRoxie [address] [place] [address] [employer] [place] [address] Phone: [phone] Referral ID Status Reason Start Date Expiration Date Visits Re quested Visits Authorized [id number] 3 3 Reason Comments Follow-up 4 month check Reason Comments Follow-up Reason Comments Ear Drainage Reason Comments Follow-up 3 week check Reason Comments Ear Problem Reason Comments otomycosis Reason Comments Treatment Planning PRN Active and Recently Administ ered Medications (unrecognized section and content) Medication Order 12/27/2023 12/28/2023 12/29/2023 acetaminophen (TYLENOL) tablet 1,000 mg, Oral, PACU ONCE PRN, 1 dose, Starting on Fri12/29/23 at 0714, Until Discontinued, Mild Pain (pain score 1,2,3), PACU Now amisulpride (BARHEMSYS) injection 10 mg 10 mg, Intravenous Push, PACU ONCE PRN, 1 dose, Starting on Fri12/29/23 at 0714, Until Discontinued, nausea, PACU Now fentaNYL (SUBLIMAZE) 100 MCG/2ML injection 25 mcg, Intravenous Push, EVERY 5 MIN PRN, 5 doses, Starting on Fri12/29/23 at 0714, Until Discontinued, Severe Pain (pain score 7,8,9,10), PACU Now fentaNYL (SUBLIMAZE) 100 MCG/2ML injection 12.5 mcg, Intravenous Push, EVERY 5 MIN PRN, 5 doses, Starting on Fri12/29/23 at 0714, Until Discontinued, Moderate Pain (pain score 4,5,6), PACU Now naloxone (NARCAN) 0.4 MG/ML injection 0.4 mg, Intravenous Push, PRN, Starting on Fri12/29/23 at 0714, Until Discontinued, Respiratory Rate Less Than 8 for adults and less than 12 for Peds or for suspected overdose, PACU Now oxyCODONE-acetaminophen (PERCOCET) 5-325 mg per tablet 2 Tablet, Oral, PRN, 1 dose, Starting on Fri12/29/23 at 0714, Until Discontinued, Moderate Pain (pain score 4,5,6), PACU Now sodium chloride 0.9 % 0.9 % injection 3 mL, Intravenous Push, PRN, Starting on Fri12/29/23 at 0714, Until Discontinued, For medication administration and blood draw, PACU Now FOR RECORDS PERTAINING TO PATIENTS WHO ARE OR HAVE BEEN ENROLLED IN A CHEMICAL DEPENDENCY/SUBSTANCEABUSE PROGRAM, SOME INFORMATION MAY BE OMITTED. This clinical summary was aggregated from multiple sources. Caution should be exercised in using it in the provision of clinical care. This summary normalizes information from multiple sources, and as a consequence, information in this document may materially change the coding, format and clinical context of patient data. In addition, data may be omitted in some cases. CLINICAL DECISIONS SHOULD BE BASED ON THE PRIMARY CLINICAL RECORDS. [employer] [facility]. provides no warranty or guarantee of the accuracy or completeness of information in this document.
[2025-01-11 07:58] LABS: Hematocrit 47.6 % (42.0-54.0); Hemoglobin 15.5 g/dL (14.0-18.0); Immature Granulocytes Abs Auto 0.02 10^3/uL (0.00-0.03); Immature Granulocytes Pct Auto 0.3 % (0.0-0.5); Lymphocytes Absolute Auto 1.4 10^3/uL (1.2-3.8); Mean Corpuscular HGB Conc 32.6 g/dL (29.9-35.2); Mean Corpuscular Hemoglobin 26.2 pg (25.9-34.0); Mean Corpuscular Volume 80.5 fL (80.0-94.0); Platelet Count 184 10^3/uL (150-450); Red Blood Count 5.91 10^6/uL (4.70-6.10); White Blood Count 6.3 10^3/uL (4.0-11.0)
[2025-01-11 08:18] LABS: Alanine Aminotransferase 36 U/L (16-63); Albumin Globulin Ratio 1.0; Albumin Level 4.4 g/dL (3.4-5.0); Alkaline Phosphatase 162 U/L (46-116); Anion Gap 9.9; Aspartate Amino Transferase 20 U/L (15-37); Blood Urea Nitrogen 16.0 mg/dL (7.0-18.0); Calcium 9.3 mg/dL (8.5-10.1); Carbon Dioxide 30.6 mmol/L (21.0-32.0); Chloride 102 mmol/L (98-107); Estimated GFR (African America >60 (>=60 mL/min/1.73m^2); Estimated GFR (Non-African Ame >60 (>=60 mL/min/1.73m^2); Free T3 2.35 pg/mL (2.18-3.98); Globulin 4.2 g/dL; Glucose 83 mg/dL (74-106); Potassium 4.5 mmol/L (3.5-5.1); Sodium 138 mmol/L (136-145); Thyroid Stimulating Hormone 2.275 uIU/mL (0.358-3.740); Total Protein 8.6 g/dL (6.4-8.2)
== END 2025-01-11 07:11 | disposition home or self-care (01) ==
PROVIDERS: PCP Family Medicine; Visit Provider Family Medicine
DX: E03.9 Hypothyroidism, unspecified (principal); G40.909 Epilepsy, unspecified, not intractable, without status epilepticus; L30.9 Dermatitis, unspecified; L70.9 Acne, unspecified; F84.0 Autistic disorder; Z79.899 Other long term (current) drug therapy
CPT/HCPCS: 36415; 80053; 84439; 84443; 84481; 85025